=== PATIENT | female | born 1965 | race African-American/Black ===

== ENCOUNTER 2016-11-17 14:52 | Inpatient (IN) | payer BC ==
[2016-11-17] MEDS ORDERED: NORMAL SALINE 1000 ML 1,000 ML IV ONE (15:18)
[2016-11-17 15:38] LABS: ABSOLUTE LYMPHOCYTES (AUTO) 1.4 10^3/uL (0.5-4.7); ABSOLUTE NEUT (AUTO) 4.1 10^3/uL (1.7-8.2); BASOPHILS % (AUTO) 0.7 % (0-2); EOSINOPHILS % (AUTO) 0.2 % (0-6); HEMATOCRIT 43.2 % (36.0-47.0); HEMOGLOBIN 14.1 g/dL (12.0-15.5); HGB HCT DIFFERENCE -0.9; MEAN CORPUSCULAR HEMOGLOBIN 26.7 pg (27.0-33.4); MEAN CORPUSCULAR HGB CONC 32.7 g/dL (32.0-36.0); MEAN CORPUSCULAR VOLUME 82 fl (80-97); MONOCYTES % (AUTO) 14.7 % (3-13); RED BLOOD COUNT 5.29 10^6/uL (3.72-5.28); RED CELL DISTRIBUTION WIDTH 14.1 % (11.5-14.0); SEGMENTED NEUTROPHILS % (AUTO) 63.4 % (42-78); WHITE BLOOD COUNT 6.5 10^3/uL (4.0-10.5)
--- NOTE | 2016-11-17 15:39 | ER Document Report ---
ED General - General Stated Complaint: ALTERED MENTAL STATUS Mode of Arrival: Medic Information source: Emergency Med Personnel Cannot obtain history due to: Altered mental status Notes: This is a 51 year-old female brought to the ER by EMS for altered mental status. Patient unable to give history so history is obtained from EMS. Per the family patient's last known normal was last night. This morning her noticed that the kids were not in school and patient was noted to be still in bed. She has been responsive to verbal stimuli but not conversant. There is no known history of recent illness or trauma and no known history of any substance abuse. Past Medical History - General Information source: Emergency Med Personnel, [facility] Records Cannot obtain history due to: Altered mental status - Social History Smoking Status: Unknown if Ever Smoked Family History: Other - unknown - Past Medical History Cardiac Medical History: Reports: Hx Hypertension Review of Systems - Review of Systems -: Yes ROS unobtainable due to patient's medical condition Physical Exam - Vital signs Vitals: Pulse Ox 98 11/17/16 15:18 - Notes Notes: PHYSICAL EXAMINATION: GENERAL: adult female, opens eyes to voice, able to state her name and will follow some commands but does appear confused. Unable to state the date or where she is. No acute distress HEAD: Atraumatic, normocephalic. EYES: Pupils equal round and reactive to light, extraocular movements intact, sclera anicteric, conjunctiva are normal. ENT: nares patent, oropharynx clear without exudates. Moist mucous membranes. NECK: Normal range of motion, supple without lymphadenopathy LUNGS: Breath sounds clear to auscultation bilaterally and equal. No wheezes rales or rhonchi. HEART: Regular rate and rhythm without murmurs ABDOMEN: Soft, obese, nontender, normoactive bowel sounds. No guarding, no rebound. No masses appreciated. EXTREMITIES: Normal range of motion, no pitting or edema. NEUROLOGICAL: Alert to person only. Cranial nerves grossly intact. Follows commands only intermittently, but does move all 4 extremities spontaneously SKIN: Warm, Dry, normal turgor, no rashes or lesions noted. Course - Re-evaluation Re-evalutation: 11/17/16 16:54 Patient reevaluated. She opened her eyes to command and will occasionally say her name but still is confused and not able to follow commands. She is protecting her airway. CT reviewed and discussed with radiologist which shows acute to subacute nonhemorrhagic left hemispheric stroke. Again the last known normal was sometime last night and patient is well out of the window for any thrombolytic therapy. At this point I'm attempting to contact family. Patient will be admitted to the hospitalist Dr. Dunbar - Vital Signs Vital signs: Temp Pulse Resp BP Pulse Ox 75 18 112/79 95 11/17/16 16:10 11/17/16 16:10 11/17/16 16:10 11/17/16 16:10 - Laboratory Result Diagrams: 11/17/16 15:15 11/17/16 15:15 Laboratory results interpreted by me: 11/17/16 11/17/16 11/17/16 15:15 15:15 15:15 RBC 5.29 H MCH 26.7 L RDW 14.1 H Monocytes % 14.7 H PT 16.9 H Sodium 146.1 H Carbon Dioxide 31 H Creatine Kinase 261 H Urine Protein Urine Urobilinogen Salicylates < 1.0 L Acetaminophen < 10 L 11/17/16 16:08 RBC MCH RDW Monocytes % PT Sodium Carbon Dioxide Creatine Kinase Urine Protein 30 H Urine Urobilinogen 2.0 H Salicylates Acetaminophen - Diagnostic Test Radiology reviewed: Image reviewed, Reports reviewed - CT head: L frontal and temporal nonhemorrhagic acute to subacute CVA Discharge - Discharge Clinical Impression: Left sided cerebral hemisphere cerebrovascular accident (CVA) Condition: Fair Disposition: ADMITTED INPATIENT Admitting Provider: Hospitalist - Dr. Dunbar Unit Admitted: [facility]
[2016-11-17 15:47] LABS: PROTHROMBIN TIME 16.9 SEC (11.4-15.4)
[2016-11-17 15:48] LABS: PARTIAL THROMBOPLASTIN TIME 24.7 SEC (23.5-35.8)
[2016-11-17 16:01] LABS: ALBUMIN 4.2 g/dL (3.5-5.0); ANION GAP 12 (5-19); BILIRUBIN,DIRECT 0.2 mg/dL (0.0-0.4); BILIRUBIN,TOTAL 0.6 mg/dL (0.2-1.3); BLOOD UREA NITROGEN 17 mg/dL (7-20); CARBON DIOXIDE 31 mmol/L (22-30); CHLORIDE 103 mmol/L (98-107); CREATININE RESULT 0.81 mg/dL (0.52-1.25); GLUCOSE 99 mg/dL (75-110); NEONATAL BILIRUBIN RESULT 0.4 mg/dL (0.1-1.1); POTASSIUM 3.8 mmol/L (3.6-5.0); SODIUM 146.1 mmol/L (137-145); TOTAL PROTEIN 7.6 g/dL (6.3-8.2)
[2016-11-17 16:03] LABS: ALANINE AMINOTRANSFERASE 21 U/L (9-52); ALCOHOL < 10 mg/dL (NONE DETECTED); ALKALINE PHOSPHATASE 58 U/L (38-126); ASPARTATE AMINO TRANSFERASE 22 U/L (14-36); CALCIUM 10.2 mg/dL (8.4-10.2); CREATINE KINASE 261 U/L (30-135)
[2016-11-17 16:11] LABS: CREATINE KINASE MB 0.73 ng/mL (<4.55)
[2016-11-17 16:12] LABS: TROPONIN I < 0.012 ng/mL
[2016-11-17 16:25] LABS: APPEARANCE,URINE SLIGHTLY-CLOUDY; BILIRUBIN,URINE NEGATIVE (NEGATIVE); GLUCOSE, URINE NEGATIVE (NEGATIVE); KETONES,URINE NEGATIVE (NEGATIVE); LEUKOCYTE ESTERASE,URINE NEGATIVE (NEGATIVE); NITRITE,URINE NEGATIVE (NEGATIVE); PROTEIN,URINE 30 mg/dL (NEGATIVE)
[2016-11-17 16:38] LABS: URINE BARBITURATES SCREEN NEGATIVE; URINE METHADONE SCREEN NEGATIVE; URINE OPIATES LOW NEGATIVE; URINE PHENCYCLIDINE SCREEN NEGATIVE
[2016-11-17] MEDS ORDERED: ASPIRIN 300 MG SUPP, RECTAL PR ONE ×2 (16:43→21:00)
[2016-11-17] MEDS ORDERED: ACETAMINOPHEN 650 MG SUPP.RECT PR PRN (17:58)
[2016-11-17] MEDS ORDERED: LABETALOL HCL INJ 20 MG/4 ML DISP.SYRIN IV PRN (17:58)
--- NOTE | 2016-11-17 18:39 | PDOC H&P ---
History of Present Illness Admission Date/PCP: 11/17/16 17:42 Patient complains of: Confusion, altered mental status History of Present Illness: TANISHA MOTT is a 51 year old female w/ reported hypertension, found at home by family confused and aphasic. Last known well was last night. Family reports patient did not bring kids to school today. At home, she was found confused and non-verbal. Ambulance was called and patient brought to hospital, head CT showed stroke in L frontal/temporal area and was refered for admission. No other information available at this time. Unable to contact family. Information obtained from ER records and EMS record. Information unobtainable from the patient at this time. Past Medical History Past Medical History: Medication reconcillation PND verification from patients pharmacist. Cardiac Medical History: Reports: Hypertension Past Surgical History Past Surgical History: Reports: Other - unknown Social History Information Source: Transfer Record Smoking Status: Unknown if Ever Smoked Frequency of Alcohol Use: None - Unknown Hx Recreational Drug Use: No - Unknown at this time Family History Family History: Other - unknown Parental Family History Reviewed: No - unobtainable Children Family History Reviewed: Unknown - unobtainable Sibling(s) Family History Reviewed.: Unknown - unobtainable Medication/Allergy Home Medications: No Home Medications 11/17/16 Allergies/Adverse Reactions: shellfish derived Allergy (Verified 11/17/16 23:58) bee sting Allergy (Uncoded 11/17/16 23:58) Review of Systems ROS unobtainable: Due to mental status Physical Exam Vital Signs: Temp Pulse Resp BP Pulse Ox 75 26 H 148/122 H 98 11/17/16 16:10 11/17/16 17:02 11/17/16 17:02 11/17/16 17:02 General appearance: PRESENT: no acute distress, obese Head exam: PRESENT: atraumatic, normocephalic Eye exam: PRESENT: conjunctiva pink, EOMI, PERRLA - sluggish. ABSENT: scleral icterus Ear exam: PRESENT: normal external ear exam. ABSENT: drainage Mouth exam: PRESENT: moist, neck supple, tongue midline - on observation Throat exam: ABSENT: post pharyngeal erythema, tonsillar erythema Neck exam: ABSENT: carotid bruit, JVD, lymphadenopathy, thyromegaly Respiratory exam: PRESENT: clear to auscultation doe. ABSENT: rales, rhonchi, wheezes Cardiovascular exam: PRESENT: RRR. ABSENT: diastolic murmur, rubs, systolic murmur Pulses: PRESENT: normal dorsalis pedis pul Vascular exam: PRESENT: normal capillary refill GI/Abdominal exam: PRESENT: normal bowel sounds, soft. ABSENT: distended, guarding, mass, organolmegaly, rebound, tenderness Rectal exam: PRESENT: deferred Extremities exam: PRESENT: full ROM. ABSENT: calf tenderness, clubbing, pedal edema Neurological exam: PRESENT: alert, awake, other - 3/5 on RLE, 4/5 on LLE, 4-/5 on RUE, 4+/5 on LUE. ABSENT: oriented to person, oriented to place, oriented to time, oriented to situation Psychiatric exam: PRESENT: appropriate affect, normal mood. ABSENT: homicidal ideation, suicidal ideation Skin exam: PRESENT: dry, intact, warm. ABSENT: cyanosis, rash Results Impressions: Chest X-Ray 11/17/16 15:19 IMPRESSION: NO ACUTE RADIOGRAPHIC FINDING IN THE CHEST. Head CT 11/17/16 15:19 IMPRESSION: Motion artifact Acute or early subacute nonhemorrhagic infarct in the left frontal and left posterior temporal lobe, with low attenuation and mild local mass effect. Results called to Dr. Hnery, 1622 hours, 11/17/2016. Assessment & Plan - Diagnosis (1) Left sided cerebral hemisphere cerebrovascular accident (CVA) Is this a current diagnosis for this admission?: Yes (2) Hypertension Qualifiers: Hypertension type: essential hypertension Qualified Code(s): I10 - Essential (primary) hypertension Is this a current diagnosis for this admission?: Yes (3) Coagulopathy Is this a current diagnosis for this admission?: Yes - Time Time Spent: 50 to 70 Minutes - Inpatient Certification Based on my medical assessment, after consideration of the patient's comorbidities, presenting symptoms, or acuity I expect that the services needed warrant INPATIENT care.: Yes I certify that my determination is in accordance with my understanding of Medicare's requirements for reasonable and necessary INPATIENT services [42 CFR 412.3e].: Yes Medical Necessity: Significant Comorbidiites Make Outpatient Treatment Too Risky , Need Close Monitoring Due to Risk of Patient Decompensation, Need For Continuous Telemetry Monitoring, Need for Neurological Checks, Risk of Complication if Not Cared For in Hospital, Risk of Diagnosis Which Will Require Inpatient Eval/Care/Monitoring Post Hospital Care: D/C Seed Cutter Documentation - Plan Summary Plan Summary: Admit to IMCU. Aspirin RTL, speech/PT/occupational therapy evaluation. Obtain lipid panel, echo, carotid doppler and MRA of head and neck. Lovenox for DVT prophylaxis. Recheck PT/PTT. Check rheumatologic panel. Labetalol PRN for SBP > 180. Supplemental O2.
[2016-11-17] MEDS: FAMOTIDINE INJ/PF 20 MG/2 ML SDV IV SCH (21:11)
[2016-11-17] MEDS ORDERED: ENOXAPARIN SODIUM INJ 40 MG/0.4 ML DISP.SYRIN SUBCUT ONE (21:30)
[2016-11-18 02:03] LABS: ARTERIAL BLOOD BASE EXCESS 2.1 mmol/L
[2016-11-18 05:12] LABS: PROTHROMBIN TIME 16.5 SEC (11.4-15.4)
[2016-11-18 05:13] LABS: PARTIAL THROMBOPLASTIN TIME 27.7 SEC (23.5-35.8)
[2016-11-18 05:19] LABS: ANION GAP 13 (5-19); BLOOD UREA NITROGEN 12 mg/dL (7-20); CALCIUM 9.3 mg/dL (8.4-10.2); CARBON DIOXIDE 26 mmol/L (22-30); CHLORIDE 107 mmol/L (98-107); CHOLESTEROL 165.89 mg/dL (0-200); CREATININE RESULT 0.73 mg/dL (0.52-1.25); Direct HDL 47 mg/dL (>40); GLUCOSE 95 mg/dL (75-110); POTASSIUM 3.8 mmol/L (3.6-5.0); SODIUM 145.5 mmol/L (137-145); TRIGLYCERIDES 137 mg/dL (<150)
[2016-11-18 05:29] LABS: DIRECT LDL 84 mg/dL (<100)
[2016-11-18 07:07] LABS: ARTERIAL BLOOD BASE EXCESS 4.5 mmol/L; ARTERIAL BLOOD O2 SATURATION 96.3 % (94-98)
[2016-11-18] MEDS ORDERED: ASPIRIN 300 MG SUPP, RECTAL PR SCH (10:00)
--- NOTE | 2016-11-18 10:06 | PDOC PROGRESS REPORT ---
Subjective Progress Note for:: 11/18/16 Subjective:: Patient's mental status improved this morning. Patient is now more focused questions compared to yesterday. Patient's strength on the right upper extremity improved as well and likewise the right lower extremity. No reported temperature spikes, nausea or vomiting, worsening confusion, unresponsiveness. Patient goes to sleep but easily arousable. Physical Exam Vital Signs: Temp Pulse Resp BP Pulse Ox 98.9 F 66 18 103/77 100 11/18/16 07:42 11/18/16 07:42 11/18/16 07:42 11/18/16 07:42 11/18/16 07:42 Intake & Output 11/17/16 11/18/16 11/19/16 06:59 06:59 06:59 Intake Total 10 Output Total 0 Balance 10 Weight 105.2 kg General appearance: PRESENT: no acute distress, morbidly obese Head exam: PRESENT: normocephalic Eye exam: PRESENT: EOMI - Seems to be intact Mouth exam: PRESENT: moist, neck supple Neck exam: ABSENT: JVD Respiratory exam: PRESENT: clear to auscultation doe. ABSENT: rhonchi, wheezes Cardiovascular exam: PRESENT: RRR. ABSENT: gallop GI/Abdominal exam: PRESENT: normal bowel sounds, soft. ABSENT: tenderness Extremities exam: PRESENT: other - Trace pretibial edema Neurological exam: PRESENT: alert, awake, other - Response to questions appropriately, right upper extremity 4 to 4+/5, RLE shows movement of the foot and able to lift it to some degree. Psychiatric exam: ABSENT: anxious Focused psych exam: ABSENT: restlessness Skin exam: PRESENT: dry, warm. ABSENT: cyanosis Results Laboratory Results: 11/18/16 03:55 11/18/16 11/18/16 11/18/16 01:20 03:55 06:50 Carbonic Acid 1.37 H 1.34 HCO3/H2CO3 Ratio 20:1 21:1 ABG pH 7.40 7.44 ABG pCO2 45.5 H 44.4 ABG pO2 66.4 L 81.7 ABG HCO3 27.4 H 29.3 H ABG O2 Saturation 93.0 L 96.3 ABG Base Excess 2.1 4.5 FiO2 ROOM AIR ROOM AIR Sodium 145.5 H Potassium 3.8 Chloride 107 Carbon Dioxide 26 Anion Gap 13 BUN 12 Creatinine 0.73 Est GFR ( Amer) > 60 Est GFR (Non-Af Amer) > 60 Glucose 95 Calcium 9.3 Triglycerides 137 Cholesterol 165.89 LDL Cholesterol Direct 84 VLDL Cholesterol 27.0 HDL Cholesterol 47 Impressions: Chest X-Ray 11/17/16 15:19 IMPRESSION: NO ACUTE RADIOGRAPHIC FINDING IN THE CHEST. Head CTA 11/17/16 16:42 IMPRESSION: OCCLUDED LEFT INTERNAL CAROTID ARTERY WITH THE LEFT MCA BEING SUPPLIED VIA THE ANTERIOR COMMUNICATING ARTERY. EVOLVING INFARCTION LEFT FRONTAL LOBE AND LEFT TEMPORAL LOBE. Neck CTA 11/17/16 16:42 IMPRESSION: There is occlusion of the left internal carotid artery at its origin. No other arterial occlusions or significant stenoses are identified. Head CT 11/18/16 00:00 IMPRESSION: Stable nonhemorrhagic left-sided infarct without mass effect. Assessment & Plan - Diagnosis (1) Left sided cerebral hemisphere cerebrovascular accident (CVA) Is this a current diagnosis for this admission?: Yes (2) Carotid artery occlusion Qualifiers: Laterality: left Qualified Code(s): I65.22 - Occlusion and stenosis of left carotid artery Is this a current diagnosis for this admission?: Yes (3) Hypertension Qualifiers: Hypertension type: essential hypertension Qualified Code(s): I10 - Essential (primary) hypertension Is this a current diagnosis for this admission?: Yes (4) Coagulopathy Is this a current diagnosis for this admission?: Yes - Time Time Spent with patient: 25-34 minutes - Plan Summary Plan Summary: Swallowing evaluation with speech. Continue antiplatelet therapy. Awaiting echocardiogram. Carotid Doppler has been discontinued as the CT scan finding shows carotid occlusion on the left. Continue supportive care. Continue to monitor blood pressure. Patient has been discussed by on-call physician to neurology service at [facility]. Reportedly, repeat head CT scan every 6 hours and if patient continues to get worse or mental status deteriorates, may be a candidate for hemicraniectomy. Awaiting rheumatologic studies.
[2016-11-18] MEDS: ENOXAPARIN SODIUM INJ 40 MG/0.4 ML DISP.SYRIN SUBCUT SCH (11:26)
[2016-11-18] MEDS: FAMOTIDINE INJ/PF 20 MG/2 ML SDV IV SCH ×2 (11:27→21:27)
--- NOTE | 2016-11-18 11:42 | Progress Note ---
Provider Note Provider Note: 11/17/2016: CT angiogram reports reviewed. 10:07 PM, I went to patient's bedside, with patient's floor nurse present. She was somewhat somnolent, but did awaken reasonably easily. Remained fairly somnolent however. Did follow basic commands without undue difficulty. Almost completely aphasic. Maintaining her airway well. Right librarian assistant and triceps basically nonfunctional. Biceps 4 over 5 strength, with plantar flexion on the right side 3 over 5 and no dorsiflexion. Left-sided motor function within normal limits. At 10:21 PM, I discussed the patient by phone with Dr. Matthews, trial consultant neurologist. Told him I would also like to discuss the patient with the neurologist at [facility]. He stated that would be fine. At 10:22 PM, I requested telephone conversation with the on-call neurologist at [facility], [place], operated by [facility]. At 11:27 PM, I discussed the patient at length by phone with Dr. Alvarez, trial consultant adult neurologist at [facility]. She did not feel the transfer was warranted at that time. She recommended every [address] scans, and sooner should neurologic status worsen. She stated that if patient began showing evidence of neurologic deterioration and/ or increased swelling on CT scan, to contact neurosurgery at [facility] for possible urgent transfer for possible hemicraniectomy. MRI study not available at that time of night. Shortly after midnight, I was contacted by her floor nurse stating that her MENDS exam had progressed from [address] scan of the brain without contrast was obtained, showing no change, and without evidence of mass effect. ICU nurse Sherry went to the patient's bedside and reevaluated the patient, with her actual MENDS score unchanged from the emergency room, and with patient following basic commands. She stated floor nurse agreed that patient actually was quite stable. Patient discussed in detail with daytime hospitalist team.
--- NOTE | 2016-11-18 13:57 | XCELERA REPORT ---
[address] [address] Transthoracic Echocardiogram Report Name: TANISHA MOTT Age: 51 yrs Gender: Female : 1965 Patient Status: Inpatient Patient Location: [id number] Study Date: 11/18/2016 09:47 AM Height: 69 in Weight: 231 lb BSA: 2.2 m2 Procedure: A complete two-dimensional transthoracic echocardiogram was performed (2D, M-mode, spectral and color flow Doppler). The study was technically adequate with some images being suboptimal in quality. Reason For Study: stroke, hypertension Ordering Physician: GEOVANY ALBERT Performed By: Jaelyn Vigil Interpretation Summary The left ventricular ejection fraction is normal. There is mild concentric left ventricular hypertrophy. The left ventricle is grossly normal size. Doppler measurements suggest pseudonormalized left ventricular relaxation, which is associated with grade II/IV or mild to moderate diastolic dysfunction Wall motion cannot be accurately commented on, but no definite regional wall motion abnormalities noted. The right ventricular systolic function is normal. The right atrium is normal in size The left atrial size is normal. There is a trace amount of mitral regurgitation There is no mitral valve stenosis. No aortic regurgitation is present. There is no aortic valve stenosis There is a trace or physiologic amount of tricuspid regurgitation Tricuspid regurgitation jet envelope not well defined to measure RV systolic pressure accurately. The aortic root is not well visualized. The inferior vena cava was not well visualized There is no pericardial effusion. MMode/2D Measurements \T\ Calculations RVDd: 3.3 cm LVIDd: 4.4 cm FS: 40.1 % Ao root diam: 3.4 cm IVSd: 1.1 cm LVIDs: 2.7 cm EDV(Teich): 89.8 ml LVPWd: 1.1 cm ESV(Teich): 26.1 ml Ao root area: 9.1 cm2 EF(Teich): 70.9 % LA dimension: 3.2 cm LVOT diam: 2.2 cm LVOT area: 3.9 cm2 Doppler Measurements \T\ Calculations MV E max belle: MV P1/2t max belle: Ao V2 max: LV V1 max P.8 cm/sec 88.8 cm/sec 132.5 cm/sec 4.5 mmHg MV A max belle: MV P1/2t: 49.7 msec Ao max PG: LV V1 max: 60.3 cm/sec MVA(P1/2t): 4.4 cm2 7.0 mmHg 106.5 cm/sec MV E/A: 1.5 MV dec slope: NAYLA(V,D): 3.1 cm2 523.3 cm/sec2 PA V2 max: 68.9 cm/sec PA max P.9 mmHg Left Ventricle The left ventricle is grossly normal size. There is mild concentric left ventricular hypertrophy. The left ventricular ejection fraction is normal. Doppler measurements suggest pseudonormalized left ventricular relaxation, which is associated with grade II/IV or mild to moderate diastolic dysfunction. Wall motion cannot be accurately commented on, but no definite regional wall motion abnormalities noted. Right Ventricle The right ventricle is grossly normal size. There is normal right ventricular wall thickness. The right ventricular systolic function is normal. Atria The right atrium is normal in size. The left atrial size is normal. Interarterial septum not well visualized and not well dopplered. Cannot comment on ASD/PFO presence. Mitral Valve The mitral valve leaflets are sclerotic, but show no functional abnormalities. There is no mitral valve stenosis. There is a trace amount of mitral regurgitation. Aortic Valve The aortic valve is grossly normal. There is no aortic valve stenosis. No aortic regurgitation is present. Tricuspid Valve The tricuspid valve is not well visualized, but is grossly normal. There is no tricuspid stenosis. There is a trace or physiologic amount of tricuspid regurgitation. Tricuspid regurgitation jet envelope not well defined to measure RV systolic pressure accurately. Pulmonic Valve The pulmonic valve is not well visualized. Great Vessels The aortic root is not well visualized. The inferior vena cava was not well visualized. Effusions There is no pericardial effusion. Incidental Findings No definite cardiac source of CVA/TIA noted on this particular trans- thoracic study. : GEOVANY ALBERT > Cindy Uribe
--- NOTE | 2016-11-18 22:04 | EKG REPORT ---
SEVERITY:- BORDERLINE ECG - SINUS RHYTHM PROBABLE LEFT ATRIAL ABNORMALITY : Confirmed by: Soo Abdalla MD 18-Nov-2016 22:04:30
[2016-11-19] MEDS: ENOXAPARIN SODIUM INJ 40 MG/0.4 ML DISP.SYRIN SUBCUT SCH (09:38)
[2016-11-19] MEDS: ASPIRIN 325 MG TABLET PO SCH (09:39)
[2016-11-19] MEDS: FAMOTIDINE INJ/PF 20 MG/2 ML SDV IV SCH ×2 (09:39→21:46)
--- NOTE | 2016-11-19 11:28 | PDOC PROGRESS REPORT ---
Subjective Progress Note for:: 11/19/16 Subjective:: Patient's mental status reportedly stable. Patient remains more focused on questions compared to admission. Patient's strength on the right upper extremity and lower extremity improved as well patient able to ambulate. Still w/ expressive aphasia. No reported temperature spikes, nausea or vomiting, worsening confusion, unresponsiveness. Patient goes to sleep but easily arousable. Able to tolerate oral intake well. Blood pressure has been normal. Lipid panel has been unremarkable. Physical Exam Vital Signs: Temp Pulse Resp BP Pulse Ox 99.1 F 58 L 14 104/64 95 11/19/16 07:41 11/19/16 10:00 11/19/16 10:00 11/19/16 10:00 11/19/16 10:00 Intake & Output 11/18/16 11/19/16 11/20/16 06:59 06:59 06:59 Intake Total 10 828 Output Total 0 400 Balance 10 428 Weight 105.2 kg 105.4 kg General appearance: PRESENT: no acute distress, cooperative Head exam: PRESENT: normocephalic Eye exam: PRESENT: EOMI Mouth exam: PRESENT: moist, neck supple Neck exam: ABSENT: JVD Respiratory exam: PRESENT: clear to auscultation doe. ABSENT: rhonchi, wheezes Cardiovascular exam: PRESENT: gallop, RRR GI/Abdominal exam: PRESENT: soft. ABSENT: distended, tenderness Neurological exam: PRESENT: alert, awake Skin exam: PRESENT: dry, warm. ABSENT: cyanosis Results Laboratory Results: 11/18/16 03:55 Impressions: Chest X-Ray 11/17/16 15:19 IMPRESSION: NO ACUTE RADIOGRAPHIC FINDING IN THE CHEST. Head CTA 11/17/16 16:42 IMPRESSION: OCCLUDED LEFT INTERNAL CAROTID ARTERY WITH THE LEFT MCA BEING SUPPLIED VIA THE ANTERIOR COMMUNICATING ARTERY. EVOLVING INFARCTION LEFT FRONTAL LOBE AND LEFT TEMPORAL LOBE. Neck CTA 11/17/16 16:42 IMPRESSION: There is occlusion of the left internal carotid artery at its origin. No other arterial occlusions or significant stenoses are identified. Brain MRI with MRA 11/17/16 18:05 IMPRESSION: Early subacute nonhemorrhagic left hemisphere infarcts, correlate with prior CT exams Occluded left internal carotid artery at the skullbase, with flow identified in the carotid terminus through a patent left posterior communicating artery. 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 Dunbar Head MRI 11/18/16 00:00 IMPRESSION: Early subacute nonhemorrhagic left hemisphere infarcts, correlate with prior CT exams Occluded left internal carotid artery at the skullbase, with flow identified in the carotid terminus through a patent left posterior communicating artery. 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 Dunbar Head CT 11/18/16 13:00 IMPRESSION: Stable nonhemorrhagic left-sided frontal and temporoparietal infarcts Assessment & Plan - Diagnosis (1) Left sided cerebral hemisphere cerebrovascular accident (CVA) Is this a current diagnosis for this admission?: Yes (2) Carotid artery occlusion Qualifiers: Laterality: left Qualified Code(s): I65.22 - Occlusion and stenosis of left carotid artery Is this a current diagnosis for this admission?: Yes (3) Hypertension Qualifiers: Hypertension type: essential hypertension Qualified Code(s): I10 - Essential (primary) hypertension Is this a current diagnosis for this admission?: Yes (4) Coagulopathy Is this a current diagnosis for this admission?: Yes (5) Cerebral aneurysm Is this a current diagnosis for this admission?: Yes - Time Time Spent with patient: 25-34 minutes - Plan Summary Plan Summary: Continue physical therapy and speech therapy. Consult raw material planner for subacute rehabilitation. Cerebral aneurysm reportedly intracranial on the internal carotid. We will continue to monitor. Continue antiplatelet therapy. Hold any antihypertensive medication for now. Awaiting rheumatologic panel.
[2016-11-19 13:39] LABS: JO-1 ANTIBODY <0.2 AI (0.0-0.9)
[2016-11-19 15:39] LABS: DILUTE RUSSELL VIPOR VENOM 36.2 sec (0.0-44.0); THROMBIN TIME 17.2 sec (0.0-20.9)
[2016-11-19] MEDS ORDERED: ACETAMINOPHEN 325 MG TABLET PO PRN (17:55)
[2016-11-20 07:43] LABS: LUPUS PANEL INTERPRETATION Comment: (.); PTT-LA 30.3 sec (0.0-43.6)
[2016-11-20] MEDS: ENOXAPARIN SODIUM INJ 40 MG/0.4 ML DISP.SYRIN SUBCUT SCH (09:39)
[2016-11-20] MEDS: ASPIRIN 325 MG TABLET PO SCH (09:39)
[2016-11-20] MEDS: FAMOTIDINE INJ/PF 20 MG/2 ML SDV IV SCH ×2 (09:40→21:17)
--- NOTE | 2016-11-20 11:03 | PDOC PROGRESS REPORT ---
Subjective Progress Note for:: 11/20/16 Subjective:: Patient's mental status reportedly stable. Patient remains more focused on questions compared during admission. Patient able to ambulate w/ walker w/ assistance. Still w/ expressive aphasia. Cognition improved per PT. No reported temperature spikes, but had low grade fever yesterday, no nausea or vomiting, worsening confusion, unresponsiveness. Able to tolerate oral intake well. Blood pressure has been normal. Lipid panel has been unremarkable. Physical Exam Vital Signs: Temp Pulse Resp BP Pulse Ox 98.8 F 54 L 12 113/63 100 11/20/16 07:29 11/20/16 10:00 11/20/16 10:00 11/20/16 10:00 11/20/16 10:00 Intake & Output 11/19/16 11/20/16 11/21/16 06:59 06:59 06:59 Intake Total 828 1520 Output Total 400 300 Balance 428 1220 Weight 105.4 kg 104.9 kg General appearance: PRESENT: no acute distress, cooperative Head exam: PRESENT: normocephalic Eye exam: PRESENT: EOMI Mouth exam: PRESENT: moist, neck supple Neck exam: ABSENT: JVD Respiratory exam: PRESENT: clear to auscultation doe Cardiovascular exam: PRESENT: RRR. ABSENT: gallop GI/Abdominal exam: PRESENT: hypoactive bowel sounds, normal bowel sounds, soft. ABSENT: tenderness Extremities exam: ABSENT: pedal edema Neurological exam: PRESENT: alert, awake Skin exam: PRESENT: dry, warm. ABSENT: cyanosis Results Laboratory Results: 11/18/16 03:55 Impressions: Chest X-Ray 11/17/16 15:19 IMPRESSION: NO ACUTE RADIOGRAPHIC FINDING IN THE CHEST. Head CTA 11/17/16 16:42 IMPRESSION: OCCLUDED LEFT INTERNAL CAROTID ARTERY WITH THE LEFT MCA BEING SUPPLIED VIA THE ANTERIOR COMMUNICATING ARTERY. EVOLVING INFARCTION LEFT FRONTAL LOBE AND LEFT TEMPORAL LOBE. Neck CTA 11/17/16 16:42 IMPRESSION: There is occlusion of the left internal carotid artery at its origin. No other arterial occlusions or significant stenoses are identified. Brain MRI with MRA 11/17/16 18:05 IMPRESSION: Early subacute nonhemorrhagic left hemisphere infarcts, correlate with prior CT exams Occluded left internal carotid artery at the skullbase, with flow identified in the carotid terminus through a patent left posterior communicating artery. 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 Dunbar Head MRI 11/18/16 00:00 IMPRESSION: Early subacute nonhemorrhagic left hemisphere infarcts, correlate with prior CT exams Occluded left internal carotid artery at the skullbase, with flow identified in the carotid terminus through a patent left posterior communicating artery. 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 Dunbar Head CT 11/18/16 13:00 IMPRESSION: Stable nonhemorrhagic left-sided frontal and temporoparietal infarcts Assessment & Plan - Diagnosis (1) Left sided cerebral hemisphere cerebrovascular accident (CVA) Is this a current diagnosis for this admission?: Yes (2) Carotid artery occlusion Qualifiers: Laterality: left Qualified Code(s): I65.22 - Occlusion and stenosis of left carotid artery Is this a current diagnosis for this admission?: Yes (3) Hypertension Qualifiers: Hypertension type: essential hypertension Qualified Code(s): I10 - Essential (primary) hypertension Is this a current diagnosis for this admission?: Yes (4) Coagulopathy Is this a current diagnosis for this admission?: Yes (5) Cerebral aneurysm Is this a current diagnosis for this admission?: Yes - Time Time Spent with patient: 15-24 minutes - Plan Summary Plan Summary: Continue PT. Add lipitor. Cont. ASA, family reports patient not on anti- platelet therapy at home. Consult [facility] for acute rehab. Per PT, patient is a good candidate for acute rehab.
[2016-11-20] MEDS: ATORVASTATIN CALCIUM 10 MG TABLET PO SCH (21:18)
[2016-11-21] MEDS: ENOXAPARIN SODIUM INJ 40 MG/0.4 ML DISP.SYRIN SUBCUT SCH (10:15)
[2016-11-21] MEDS: ASPIRIN 325 MG TABLET PO SCH (10:16)
[2016-11-21] MEDS: FAMOTIDINE INJ/PF 20 MG/2 ML SDV IV SCH ×2 (10:16→21:30)
--- NOTE | 2016-11-21 10:48 | PDOC PROGRESS REPORT ---
Subjective Progress Note for:: 11/21/16 Subjective:: No reported temperature spikes, respiratory distress, chills or fever. No worsening of the deficits noted. No alteration in mental status reported. Physical Exam Vital Signs: Temp Pulse Resp BP Pulse Ox 98.7 F 54 L 16 121/78 100 11/21/16 07:32 11/21/16 07:32 11/21/16 07:32 11/21/16 07:32 11/21/16 07:32 Intake & Output 11/20/16 11/21/16 11/22/16 06:59 06:59 06:59 Intake Total 1520 807 Output Total 300 600 Balance 1220 207 Weight 104.9 kg 105.9 kg General appearance: PRESENT: no acute distress, cooperative Head exam: PRESENT: normocephalic Eye exam: PRESENT: EOMI Mouth exam: PRESENT: neck supple Neck exam: ABSENT: JVD Respiratory exam: PRESENT: clear to auscultation doe Cardiovascular exam: PRESENT: RRR. ABSENT: gallop GI/Abdominal exam: PRESENT: normal bowel sounds, soft. ABSENT: distended Extremities exam: PRESENT: other - Trace pretibial edema Neurological exam: PRESENT: alert, awake Skin exam: PRESENT: dry, warm. ABSENT: cyanosis Results Laboratory Results: 11/18/16 03:55 Impressions: Chest X-Ray 11/17/16 15:19 IMPRESSION: NO ACUTE RADIOGRAPHIC FINDING IN THE CHEST. Head CTA 11/17/16 16:42 IMPRESSION: OCCLUDED LEFT INTERNAL CAROTID ARTERY WITH THE LEFT MCA BEING SUPPLIED VIA THE ANTERIOR COMMUNICATING ARTERY. EVOLVING INFARCTION LEFT FRONTAL LOBE AND LEFT TEMPORAL LOBE. Neck CTA 11/17/16 16:42 IMPRESSION: There is occlusion of the left internal carotid artery at its origin. No other arterial occlusions or significant stenoses are identified. Brain MRI with MRA 11/17/16 18:05 IMPRESSION: Early subacute nonhemorrhagic left hemisphere infarcts, correlate with prior CT exams Occluded left internal carotid artery at the skullbase, with flow identified in the carotid terminus through a patent left posterior communicating artery. 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 Dunbar Head MRI 11/18/16 00:00 IMPRESSION: Early subacute nonhemorrhagic left hemisphere infarcts, correlate with prior CT exams Occluded left internal carotid artery at the skullbase, with flow identified in the carotid terminus through a patent left posterior communicating artery. 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 Dunbar Head CT 11/18/16 13:00 IMPRESSION: Stable nonhemorrhagic left-sided frontal and temporoparietal infarcts Assessment & Plan - Diagnosis (1) Left sided cerebral hemisphere cerebrovascular accident (CVA) Is this a current diagnosis for this admission?: Yes (2) Carotid artery occlusion Qualifiers: Laterality: left Qualified Code(s): I65.22 - Occlusion and stenosis of left carotid artery Is this a current diagnosis for this admission?: Yes (3) Hypertension Qualifiers: Hypertension type: essential hypertension Qualified Code(s): I10 - Essential (primary) hypertension Is this a current diagnosis for this admission?: Yes (4) Coagulopathy Is this a current diagnosis for this admission?: Yes (5) Cerebral aneurysm Is this a current diagnosis for this admission?: Yes - Time Time Spent with patient: Less than 15 minutes - Plan Summary Plan Summary: Patient improved overall. No new deficits reported. Blood pressure has remained normal. Continue current medication and supportive care. Awaiting rehabilitation bed.
[2016-11-21] MEDS: ATORVASTATIN CALCIUM 10 MG TABLET PO SCH (21:30)
[2016-11-22] MEDS: ENOXAPARIN SODIUM INJ 40 MG/0.4 ML DISP.SYRIN SUBCUT SCH (09:08)
[2016-11-22] MEDS: ASPIRIN 325 MG TABLET PO SCH (09:09)
[2016-11-22] MEDS: FAMOTIDINE INJ/PF 20 MG/2 ML SDV IV SCH ×2 (09:09→22:08)
--- NOTE | 2016-11-22 09:54 | PDOC PROGRESS REPORT ---
Subjective Progress Note for:: 11/22/16 Subjective:: Patient is stable. She denies any new weakness, no reported choking sensation or aspiration, able to ambulate with assistance. Still having expressive aphasia but at times she is able to say what she meant. Physical Exam Vital Signs: Temp Pulse Resp BP Pulse Ox 99.1 F 58 L 16 107/68 99 11/22/16 07:56 11/22/16 07:56 11/22/16 07:56 11/22/16 07:56 11/22/16 07:56 Intake & Output 11/21/16 11/22/16 11/23/16 06:59 06:59 06:59 Intake Total 807 1265 Output Total 600 Balance 207 1265 Weight 105.9 kg 98.5 kg General appearance: PRESENT: no acute distress, morbidly obese Head exam: PRESENT: normocephalic Eye exam: PRESENT: EOMI Mouth exam: PRESENT: moist, neck supple Neck exam: ABSENT: JVD Respiratory exam: PRESENT: clear to auscultation doe Cardiovascular exam: PRESENT: RRR. ABSENT: gallop GI/Abdominal exam: PRESENT: soft. ABSENT: distended, tenderness Extremities exam: ABSENT: pedal edema Neurological exam: PRESENT: alert, awake Skin exam: PRESENT: dry, warm. ABSENT: cyanosis Results Laboratory Results: 11/18/16 03:55 Impressions: Chest X-Ray 11/17/16 15:19 IMPRESSION: NO ACUTE RADIOGRAPHIC FINDING IN THE CHEST. Head CTA 11/17/16 16:42 IMPRESSION: OCCLUDED LEFT INTERNAL CAROTID ARTERY WITH THE LEFT MCA BEING SUPPLIED VIA THE ANTERIOR COMMUNICATING ARTERY. EVOLVING INFARCTION LEFT FRONTAL LOBE AND LEFT TEMPORAL LOBE. Neck CTA 11/17/16 16:42 IMPRESSION: There is occlusion of the left internal carotid artery at its origin. No other arterial occlusions or significant stenoses are identified. Brain MRI with MRA 11/17/16 18:05 IMPRESSION: Early subacute nonhemorrhagic left hemisphere infarcts, correlate with prior CT exams Occluded left internal carotid artery at the skullbase, with flow identified in the carotid terminus through a patent left posterior communicating artery. 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 Dunbar Head MRI 11/18/16 00:00 IMPRESSION: Early subacute nonhemorrhagic left hemisphere infarcts, correlate with prior CT exams Occluded left internal carotid artery at the skullbase, with flow identified in the carotid terminus through a patent left posterior communicating artery. 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 Dunbar Head CT 11/18/16 13:00 IMPRESSION: Stable nonhemorrhagic left-sided frontal and temporoparietal infarcts Assessment & Plan - Diagnosis (1) Left sided cerebral hemisphere cerebrovascular accident (CVA) Is this a current diagnosis for this admission?: Yes (2) Carotid artery occlusion Qualifiers: Laterality: left Qualified Code(s): I65.22 - Occlusion and stenosis of left carotid artery Is this a current diagnosis for this admission?: Yes (3) Hypertension Qualifiers: Hypertension type: essential hypertension Qualified Code(s): I10 - Essential (primary) hypertension Is this a current diagnosis for this admission?: Yes (4) Coagulopathy Is this a current diagnosis for this admission?: Yes (5) Cerebral aneurysm Is this a current diagnosis for this admission?: Yes - Time Time Spent with patient: Less than 15 minutes - Plan Summary Plan Summary: Patient's blood pressure remains normal. Continue current medications and supportive care. Continue physical therapy. Awaiting acute rehabilitation bed.
[2016-11-22] MEDS: ATORVASTATIN CALCIUM 10 MG TABLET PO SCH (22:08)
[2016-11-23] MEDS: ENOXAPARIN SODIUM INJ 40 MG/0.4 ML DISP.SYRIN SUBCUT SCH (09:21)
[2016-11-23] MEDS: ASPIRIN 325 MG TABLET PO SCH (09:24)
[2016-11-23] MEDS: FAMOTIDINE INJ/PF 20 MG/2 ML SDV IV SCH ×2 (09:25→22:10)
--- NOTE | 2016-11-23 11:27 | PDOC PROGRESS REPORT ---
Subjective Progress Note for:: 11/23/16 Subjective:: Patient is stable. She denies any new weakness. Still having expressive aphasia but at times she is able to say what she meant. Ambulates with assistance and a rolling walker. Physical Exam Vital Signs: Temp Pulse Resp BP Pulse Ox 98.0 F 57 L 12 102/69 97 11/23/16 10:46 11/23/16 10:46 11/23/16 10:46 11/23/16 10:46 11/23/16 10:46 Intake & Output 11/22/16 11/23/16 11/24/16 06:59 06:59 06:59 Intake Total 1265 1212 Balance 1265 1212 Weight 98.5 kg 105.6 kg General appearance: PRESENT: no acute distress, cooperative, obese Head exam: PRESENT: normocephalic Eye exam: PRESENT: EOMI Mouth exam: PRESENT: moist, neck supple Neck exam: ABSENT: JVD Respiratory exam: PRESENT: clear to auscultation doe Cardiovascular exam: PRESENT: RRR. ABSENT: gallop GI/Abdominal exam: PRESENT: normal bowel sounds, soft Extremities exam: ABSENT: pedal edema Neurological exam: PRESENT: alert, awake Skin exam: PRESENT: dry, warm. ABSENT: cyanosis Results Laboratory Results: 11/18/16 03:55 Impressions: Chest X-Ray 11/17/16 15:19 IMPRESSION: NO ACUTE RADIOGRAPHIC FINDING IN THE CHEST. Head CTA 11/17/16 16:42 IMPRESSION: OCCLUDED LEFT INTERNAL CAROTID ARTERY WITH THE LEFT MCA BEING SUPPLIED VIA THE ANTERIOR COMMUNICATING ARTERY. EVOLVING INFARCTION LEFT FRONTAL LOBE AND LEFT TEMPORAL LOBE. Neck CTA 11/17/16 16:42 IMPRESSION: There is occlusion of the left internal carotid artery at its origin. No other arterial occlusions or significant stenoses are identified. Brain MRI with MRA 11/17/16 18:05 IMPRESSION: Early subacute nonhemorrhagic left hemisphere infarcts, correlate with prior CT exams Occluded left internal carotid artery at the skullbase, with flow identified in the carotid terminus through a patent left posterior communicating artery. 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 Dunbar Head MRI 11/18/16 00:00 IMPRESSION: Early subacute nonhemorrhagic left hemisphere infarcts, correlate with prior CT exams Occluded left internal carotid artery at the skullbase, with flow identified in the carotid terminus through a patent left posterior communicating artery. 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 Dunbar Head CT 11/18/16 13:00 IMPRESSION: Stable nonhemorrhagic left-sided frontal and temporoparietal infarcts Assessment & Plan - Diagnosis (1) Left sided cerebral hemisphere cerebrovascular accident (CVA) Is this a current diagnosis for this admission?: Yes (2) Carotid artery occlusion Qualifiers: Laterality: left Qualified Code(s): I65.22 - Occlusion and stenosis of left carotid artery Is this a current diagnosis for this admission?: Yes (3) Cerebral aneurysm Is this a current diagnosis for this admission?: Yes (4) Hypertension Qualifiers: Hypertension type: essential hypertension Qualified Code(s): I10 - Essential (primary) hypertension Is this a current diagnosis for this admission?: Yes (5) Coagulopathy Is this a current diagnosis for this admission?: Yes - Time Time Spent with patient: Less than 15 minutes - Plan Summary Plan Summary: Continue him medication and supportive care. Continue physical therapy. The patient will need neurosurgical evaluation and follow-up on discharge for her small cerebral aneurysm noted on MRI. Awaiting bed in acute rehabilitation facility.
[2016-11-23] MEDS: ATORVASTATIN CALCIUM 10 MG TABLET PO SCH (22:10)
[2016-11-24] MEDS ORDERED: NICOTINE 7 MG/24 HR PATCH.TD24 TD PRN (09:35)
[2016-11-24] MEDS ORDERED: ALBUTEROL SULFATE HFA (90 MCG/PUFF) 200 PUFF/8.5 GM MDI IH PRN (09:35)
[2016-11-24] MEDS: FAMOTIDINE 20 MG TABLET PO SCH ×2 (10:52→23:00)
[2016-11-24] MEDS: ENOXAPARIN SODIUM INJ 40 MG/0.4 ML DISP.SYRIN SUBCUT SCH (10:52)
[2016-11-24] MEDS: ASPIRIN 325 MG TABLET PO SCH (10:52)
[2016-11-24] MEDS ORDERED: TIOTROPIUM BROMIDE DPI 5 CAP/KIT (18 MCG/CAP) IH ONE (11:00)
--- NOTE | 2016-11-24 16:57 | PDOC PROGRESS REPORT ---
Subjective Progress Note for:: 11/24/16 Subjective:: Patient seen earlier today on morning rounds. Patient complains of dry cough. Patient reports he is slightly short of breath with ambulation. She denies any PND, orthopnea, or peripheral edema. She reports that she normally did smoke approximately one pack per day. Patient denies chest pain, abdominal pain, nausea, vomiting, fevers, chills, diarrhea, constipation, headache, new onset weakness. Physical Exam Vital Signs: Temp Pulse Resp BP Pulse Ox 98.0 F 59 L 16 103/74 100 11/24/16 11:40 11/24/16 14:00 11/24/16 11:40 11/24/16 11:40 11/24/16 11:40 Intake & Output 11/23/16 11/24/16 11/25/16 06:59 06:59 06:59 Intake Total 1212 575 220 Balance 1212 575 220 Weight 105.6 kg 96.9 kg Exam: General: Awake alert and oriented x3, no acute respiratory distress HEENT: AT/NC, PERRL, EOMI, oropharynx is moist, pink, no scleral icterus, no conjunctival injection, hirsutism Neck: No JVD, trachea midline; acanthosis nigricans Chest: Bilateral basilar rales CV: Regular rate and rhythm, normal S1 and S2, no murmur, rub, or gallop Abdomen: Soft, nontender to palpation, nondistended, active bowel sounds; no rebound, rigidity, or guarding Extremities: No cyanosis, clubbing or edema Neuro: Expressive and receptive aphasia, right upper extremity 4-/5, right lower extremity 4+/5 Psych: Normal mood and affect Results Laboratory Results: 11/18/16 03:55 11/24/16 10:14 TSH 1.46 Impressions: Head CTA 11/17/16 16:42 IMPRESSION: OCCLUDED LEFT INTERNAL CAROTID ARTERY WITH THE LEFT MCA BEING SUPPLIED VIA THE ANTERIOR COMMUNICATING ARTERY. EVOLVING INFARCTION LEFT FRONTAL LOBE AND LEFT TEMPORAL LOBE. Neck CTA 11/17/16 16:42 IMPRESSION: There is occlusion of the left internal carotid artery at its origin. No other arterial occlusions or significant stenoses are identified. Brain MRI with MRA 11/17/16 18:05 IMPRESSION: Early subacute nonhemorrhagic left hemisphere infarcts, correlate with prior CT exams Occluded left internal carotid artery at the skullbase, with flow identified in the carotid terminus through a patent left posterior communicating artery. 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 Dunbar Head MRI 11/18/16 00:00 IMPRESSION: Early subacute nonhemorrhagic left hemisphere infarcts, correlate with prior CT exams Occluded left internal carotid artery at the skullbase, with flow identified in the carotid terminus through a patent left posterior communicating artery. 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 Dunbar Head CT 11/18/16 13:00 IMPRESSION: Stable nonhemorrhagic left-sided frontal and temporoparietal infarcts Chest X-Ray 11/24/16 00:00 IMPRESSION: CARDIAC ENLARGEMENT. VASCULAR CONGESTION. Assessment & Plan - Diagnosis (1) Left sided cerebral hemisphere cerebrovascular accident (CVA) Is this a current diagnosis for this admission?: YesPlan: Patient with left-sided CVA secondary to left carotid artery occlusion at its origin. Continue patient on Lipitor, aspirin, blood pressure control, and continued cessation of nicotine. Patient is currently pending inpatient rehabilitation placement. Patient currently receiving PT, OT, and speech therapy. She has had some improvement of her expressive aphasia. Patient is not yet back to baseline. (2) Female hirsutism Is this a current diagnosis for this admission?: YesPlan: We'll check a TSH and hemoglobin A1c. Have recommended that she have this evaluated as an outpatient. (3) Acanthosis nigricans Is this a current diagnosis for this admission?: YesPlan: Check hemoglobin A1c (4) Carotid artery occlusion Qualifiers: Laterality: left Qualified Code(s): I65.22 - Occlusion and stenosis of left carotid artery Is this a current diagnosis for this admission?: YesPlan: No surgical intervention has found to be effective for complete occlusion. Continue aspirin and statin. (5) Cerebral aneurysm Is this a current diagnosis for this admission?: YesPlan: Patient will require outpatient neurosurgical follow-up for this. (6) Coagulopathy Is this a current diagnosis for this admission?: YesPlan: Currently mildly elevated PTT. Current coagulopathy workup negative to date. Possibly secondary to administration of heparin. (7) Hypertension Qualifiers: Hypertension type: essential hypertension Qualified Code(s): I10 - Essential (primary) hypertension Is this a current diagnosis for this admission?: YesPlan: Currently well-controlled on no medication. (8) Tobacco abuse Is this a current diagnosis for this admission?: YesPlan: Encourage cessation. When necessary nicotine patch. (9) Obesity with serious comorbidity Is this a current diagnosis for this admission?: YesPlan: Encourage sensible weight loss. (10) Cough Is this a current diagnosis for this admission?: YesPlan: Will check chest x-ray for concerns of volume overload. - Time Time Spent with patient: 25-34 minutes Medications reviewed and adjusted accordingly: Yes Anticipated discharge: Acute Rehab Within: when bed available
[2016-11-24] MEDS ORDERED: FUROSEMIDE 20 MG TABLET PO ONE (17:45)
[2016-11-24] MEDS ORDERED: SENNOSIDES/DOCUSATE 8.6-50 MG 1 EACH TABLET PO SCH (22:00)
[2016-11-24] MEDS: ATORVASTATIN CALCIUM 10 MG TABLET PO SCH (23:00)
[2016-11-25] MEDS: FAMOTIDINE 20 MG TABLET PO SCH (09:49)
[2016-11-25] MEDS: ASPIRIN 325 MG TABLET PO SCH (09:49)
[2016-11-25] MEDS ORDERED: TIOTROPIUM BROMIDE DPI 5 CAP/KIT (18 MCG/CAP) IH SCH (10:00)
[2016-11-25] MEDS: ENOXAPARIN SODIUM INJ 40 MG/0.4 ML DISP.SYRIN SUBCUT SCH (11:03)
--- NOTE | 2016-11-25 11:42 | PDOC DISCHARGE SUMMARY ---
General - Admit/Disc Date/PCP Admission Date/Primary Care Provider: 11/17/16 17:58 Discharge Date: 11/25/16 - Discharge Diagnosis (1) Left sided cerebral hemisphere cerebrovascular accident (CVA) Is this a current diagnosis for this admission?: Yes (2) Carotid artery occlusion Is this a current diagnosis for this admission?: Yes (3) Cerebral aneurysm Is this a current diagnosis for this admission?: Yes (4) Coagulopathy Is this a current diagnosis for this admission?: Yes (5) Hypertension Is this a current diagnosis for this admission?: Yes (6) Obesity with serious comorbidity Is this a current diagnosis for this admission?: Yes (7) Cough Is this a current diagnosis for this admission?: Yes (8) Female hirsutism Is this a current diagnosis for this admission?: Yes (9) Prediabetes Is this a current diagnosis for this admission?: Yes (10) Tobacco abuse Is this a current diagnosis for this admission?: Yes - Additional Information Discharge Diet: Cardiac Discharge Activity: Activity As Tolerated, Slowly Increase Activity Home Medications: Albuterol Sulfate [Proair HFA Inhalation Aerosol 8.5 gm MDI] 2 puff IH Q6HP PRN hfa.aer.ad 11/25/16 Aspirin [Aspirin 325 mg Tablet] 325 mg PO DAILY tablet 11/25/16 Atorvastatin Calcium [Lipitor 10 mg Tablet] 10 mg PO QHS tablet 11/25/16 Famotidine [Pepcid 20 mg Tablet] 20 mg PO Q12 tablet 11/25/16 Nicotine [Nicoderm 7 mg/24 Hr Transdermal Patch] 1 each TD DAILYP PRN patch.td24 11/25/16 Sennosides/Docusate 8.6-50 mg [Senna Plus Tablet] 2 each PO QHS tablet Tiotropium [place] [Spiriva Handihaler 5 Cap/Kit (18 Mcg/Cap)] 1 cap IH DAILY kit 11/25/16 History of Present Illness History of Present Illness: TANISHA MOTT is a 51 year old female w/ reported hypertension, found at home by family confused and aphasic. Last known well was last night. Family reports patient did not bring kids to school today. At home, she was found confused and non-verbal. Ambulance was called and patient brought to hospital, head CT showed stroke in L frontal/temporal area and was refered for admission. No other information available at this time. Unable to contact family. Information obtained from ER records and EMS record. Information unobtainable from the patient at this time. Hospital Course Hospital Course: Patient was admitted per the standard stroke protocol set. Initial CT of the head revealed acute to early subacute nonhemorrhagic infarct in the left frontal and left posterior temporal lobe with low attenuation and mild local mass effect. Patient subsequently underwent CTA of the neck and head which revealed the left MCA be small and filling in a retrograde fashion from the anterior communicating artery and the left internal carotid artery was found to be occluded at its origin. MRI and MRA was obtained of brain. This revealed the left ICA being occluded at the carotid terminus where there was inflow from the posterior continue getting artery. There was a decreased number of distal branches of the left MCA correlating to her infarct. Patient was also found to have a 3-4 mm aneurysm off the medial aspect of the parasellar carotid distal to the left ophthalmic artery. Patient is strongly advised to have this followed up by neurosurgery as an outpatient. Patient was placed on aspirin, Lipitor, and has not required any blood pressure medication. Echocardiogram was performed which revealed normal EF and grade 2 out of 4 diastolic dysfunction. Patient is advised to stop smoking and nicotine patch has been placed as needed for her. Slowly patient's speech improved however this did reveal that she had significant expressive as well as receptive aphasia. Patient is ambulating well with some assistance. She does require supervision for her activities of daily living. Patient was felt to be a good candidate for inpatient rehabilitation and this was set up for her. Physical Exam Vital Signs: Temp Pulse Resp BP Pulse Ox 98.5 F 59 L 16 100/64 100 11/25/16 07:08 11/25/16 07:08 11/25/16 07:08 11/25/16 07:08 11/25/16 07:08 Intake & Output 11/24/16 11/25/16 11/26/16 06:59 06:59 06:59 Intake Total 575 890 Balance 575 890 Weight 96.9 kg 105.6 kg Exam: General: Awake alert and oriented x3, no acute respiratory distress HEENT: AT/NC, PERRL, EOMI, oropharynx is moist, pink, no scleral icterus, no conjunctival injection, hirsutism Neck: No JVD, trachea midline; acanthosis nigricans Chest: Clear to auscultation bilaterally CV: Regular rate and rhythm, normal S1 and S2, no murmur, rub, or gallop Abdomen: Soft, nontender to palpation, nondistended, active bowel sounds; no rebound, rigidity, or guarding Extremities: No cyanosis, clubbing or edema Neuro: Expressive and receptive aphasia, right upper extremity 4-/5, right lower extremity 4+/5 Psych: Normal mood and affect Results Laboratory Results: 11/18/16 03:55 Impressions: Head CTA 11/17/16 16:42 IMPRESSION: OCCLUDED LEFT INTERNAL CAROTID ARTERY WITH THE LEFT MCA BEING SUPPLIED VIA THE ANTERIOR COMMUNICATING ARTERY. EVOLVING INFARCTION LEFT FRONTAL LOBE AND LEFT TEMPORAL LOBE. Neck CTA 11/17/16 16:42 IMPRESSION: There is occlusion of the left internal carotid artery at its origin. No other arterial occlusions or significant stenoses are identified. Brain MRI with MRA 11/17/16 18:05 IMPRESSION: Early subacute nonhemorrhagic left hemisphere infarcts, correlate with prior CT exams Occluded left internal carotid artery at the skullbase, with flow identified in the carotid terminus through a patent left posterior communicating artery. 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 Dunbar Head MRI 11/18/16 00:00 IMPRESSION: Early subacute nonhemorrhagic left hemisphere infarcts, correlate with prior CT exams Occluded left internal carotid artery at the skullbase, with flow identified in the carotid terminus through a patent left posterior communicating artery. 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 Dunbar Head CT 11/18/16 13:00 IMPRESSION: Stable nonhemorrhagic left-sided frontal and temporoparietal infarcts Chest X-Ray 11/24/16 00:00 IMPRESSION: CARDIAC ENLARGEMENT. VASCULAR CONGESTION. Qualifiers PATEINT BEING DISCHARGED WITH ANY OF THE FOLLOWING DIAGNOSIS?: Stroke Stroke Pt being discharged on Anti-thrombolytic therapy?: Yes Stroke Pt being discharged on Anti-coagulation therapy?: No Reason(s) for not prescribing Anti-coagulation therapy:: Not indicated - No A. fib Stroke Pt being discharged on Statins?: Yes Plan Time Spent: Greater than 30 Minutes
[2016-11-25 12:03] VITALS: BP 107/74
== END 2016-11-25 15:30 | DRG 66 ==
LOC: ER 14:52 → EH 17:42 → UNDOADMIN 17:42 → EH 17:58 → 3N 19:55
PROVIDERS: ADMIT Internal Medicine; ATTEND Internal Medicine
DX: I63.232 Cerebral infarction due to unspecified occlusion or stenosis of left carotid arteries (principal); R47.01 Aphasia; I10 Essential (primary) hypertension; I72.0 Aneurysm of carotid artery; L68.0 Hirsutism; L83 Acanthosis nigricans; E66.9 Obesity, unspecified; F17.210 Nicotine dependence, cigarettes, uncomplicated; Z68.34 Body mass index [BMI] 34.0-34.9, adult
CPT/HCPCS: 36415; 36600; 51701; 70450; 70496; 70498; 70544; 70551; 71010; 71020; 80048; 80053; 80061; 80307; 81001; 82550; 82553; 82803; 83036; 83520; 84443; 84484; 84703; 85025; 85610; 85730; 86225; 86235; 86430; 93005; 93010; 93306; 94799; 96360; 99285; J1650; J3490; J7030; S0028

== ENCOUNTER 2017-07-16 07:09 | Emergency (ER) | payer BC ==
--- NOTE | 2017-07-16 07:52 | RADIOLOGY REPORT (SQ) ---
EXAM DESCRIPTION: ANKLE RIGHT COMPLETE COMPLETED DATE/TIME: 07/16/2017 7:38 am REASON FOR STUDY: pain/injury . Fall. COMPARISON: None. NUMBER OF VIEWS: Three views. TECHNIQUE: AP, lateral, and oblique radiographic images acquired of the right ankle. LIMITATIONS: None. FINDINGS: MINERALIZATION: Normal. BONES: There is a small avulsion fracture at the dorsal talus. A linear lucency is seen at the anter ior process of the calcaneus on the lateral view. The ankle mortise is maintained. JOINTS: Small effusion at the ankle. SOFT TISSUES: Diffuse soft tissue swelling at the ankle. No radiopaque foreign body. IMPRESSION: Small avulsion fracture at the dorsal talus. Linear lucency at the anterior process of the calcaneus, may represent a nondisplaced fracture. Ankle joint effusion and soft tissue swelling. TECHNICAL DOCUMENTATION: JOB ID: [id number] 2010 [employer]- All Rights Reserved
--- NOTE | 2017-07-16 07:52 | ER Document Report ---
ED Extremity Problem, Lower <DAVID POOLE - Last Filed: 07/16/17 08:54> - General Mode of Arrival: Ambulatory Information source: Patient TRAVEL OUTSIDE OF THE [place] IN LAST 30 DAYS: No <CARROLL GRAJEDA - Last Filed: 07/16/17 13:47> - General Chief Complaint: Foot Injury Stated Complaint: FOOT PAIN Time Seen by Provider: 07/16/17 07:38 Notes: Patient is a 52-year-old female that presents to the emergency department today with complaints of a fall that occurred yesterday. Patient has had associated right foot pain since the fall. Patient states she is unsure how she fell, she had no symptoms prior to this fall. Patient states "I was trying not to come here but this morning when I woke up the pain had increased and there was more swelling than yesterday". (CARROLL GRAJEDA) - Related Data Allergies/Adverse Reactions: shellfish derived Allergy (Verified 11/17/16 23:58) bee sting Allergy (Uncoded 11/17/16 23:58) Past Medical History - General Information source: Patient, [facility] Records - Social History Smoking Status: Never Smoker Cigarette use (# per day): No Chew tobacco use (# tins/day): No Frequency of alcohol use: Rare Drug Abuse: None Lives with: Family Family History: Reviewed & Not Pertinent, Other - unknown Patient has suicidal ideation: No Patient has homicidal ideation: No - Past Medical History Cardiac Medical History: Reports: Hx Hypertension Past Surgical History: Reports: Other - unknown <CARROLL GRAJEDA - Last Filed: 07/16/17 13:47> Review of Systems - Review of Systems Constitutional: No symptoms reported EENT: No symptoms reported Cardiovascular: No symptoms reported Respiratory: No symptoms reported Gastrointestinal: No symptoms reported Genitourinary: No symptoms reported Female Genitourinary: No symptoms reported Musculoskeletal: See HPI, Other - right foot pain Skin: No symptoms reported Hematologic/Lymphatic: No symptoms reported Neurological/Psychological: No symptoms reported -: Yes All other systems reviewed and negative <CARROLL GRAJEDA - Last Filed: 07/16/17 13:47> Physical Exam - General General appearance: Appears well, Alert In distress: None - HEENT Head: Normocephalic, Atraumatic Eyes: Normal Conjunctiva: Normal Extraocular movements intact: Yes - Respiratory Respiratory status: No respiratory distress - Cardiovascular Rhythm: Regular - Abdominal Inspection: Normal Distension: No distension - Extremities General upper extremity: Normal inspection, Normal ROM. No: Edema Foot: Tender - tenderness over dorsal proximal right foot, tenderness over talus. Right ankle swelling both medially and laterally with no tenderness. - Neurological Neuro grossly intact: Yes Cognition: Normal Orientation: AAOx4 - Psychological Associated symptoms: Normal affect, Normal mood - Skin Skin Temperature: Warm Skin Moisture: Dry Skin Color: Normal <CARROLL GRAJEDA - Last Filed: 07/16/17 13:47> - Vital signs Vitals: Temp Pulse Resp BP Pulse Ox 98.4 F 87 16 160/109 H 98 07/16/17 07:15 07/16/17 07:15 07/16/17 07:15 07/16/17 07:15 07/16/17 07:15 Course - Diagnostic Test Radiology reviewed: Image reviewed, Reports reviewed - Small avulsion fracture off the dorsal talus <DAVID POOLE - Last Filed: 07/16/17 08:54> - Vital Signs Vital signs: Temp Pulse Resp BP Pulse Ox 98.1 F 78 22 H 149/99 H 98 07/16/17 09:22 07/16/17 09:22 07/16/17 09:22 07/16/17 09:22 07/16/17 09:22 Discharge <DAVID POOLE - Last Filed: 07/16/17 08:54> <CARROLL GRAJEDA - Last Filed: 07/16/17 13:47> - Discharge Clinical Impression: Avulsion fracture of right talus Qualifiers: Encounter type: initial encounter Fracture type: closed Fracture alignment: displaced Qualified Code(s): S92.151A - Displaced avulsion fracture (chip fracture) of right talus, initial encounter for closed fracture Right foot sprain Qualifiers: Encounter type: initial encounter Qualified Code(s): S93.601A - Unspecified sprain of right foot, initial encounter Condition: Stable Disposition: HOME, SELF-CARE Additional Instructions: Avulsion Fracture You have an avulsion fracture, sometimes also called a flake or chip fracture. This type of fracture is caused by a sudden stress on a ligament or tendon. As the ligament pulls on the bone, the bone gives way, and a chip of bone cracks off. Small avulsion fractures are not usually serious. More often, the ligament injury which caused the bone chip is of greater concern. The treatment is usually the same as for a ligament or tendon injury -- that is, rest, ice, and elevation -- with careful resumption of use once the pain and swelling have resolved. For some avulsion fractures, a cast or special splint is necessary. Large avulsion fractures may even require an operation. Often the treatment plan will change depending on how well your injury progresses. Healing usually takes between three and six weeks. Future X-rays will most likely still show this bone chip, as it does not "fuse." Call the doctor or return at once if swelling and pain become severe, or if numbness develops. Foot Sprain Your injury is a sprain. A sprain results from stretching or tearing of the ligaments, usually from a twisting injury. The ligaments will require time and protection in order to heal properly. Many sprains are quite disabling and should be taken seriously. The usual initial treatment of sprains is cold packs, elevation, and rest of the injured area. Your physician has assessed the seriousness of your ligament injury, and has outlined a treatment plan. Understand that this treatment may change, depending on how you progress. If a re-examination was recommended, it is important that you follow up as instructed. Call the doctor any time if there is severe pain, numbness, or loss of function in the injured area. //////////////////////////////////////////////////////////////////////////////// //////////////////////////////////////////////////////////////////////////////// ///////////////// Elevate your foot all the time. Use the crutches to avoid or limit weightbearing. Take pain medication if needed. [facility]--call today to schedule an appointment. RETURN TO THE EMERGENCY ROOM IF ANY NEW OR WORSENING SYMPTOMS. Prescriptions: Oxycodone HCl/Acetaminophen [Percocet 5-325 mg Tablet] 1 tab PO ASDIR PRN #15 tablet PRN Reason: Referrals: [facility] ([place]) [Provider Group] - Follow up in 3-5 days Scribe Attestation: 07/16/17 07:57 I personally performed the services described in the documentation, reviewed and edited the documentation which was dictated to the scribe in my presence, and it accurately records my words and actions. (DAVID POOLE) Scribe Documentation - Scribe Written by Guillaume:: Guillaume Yates, 07/16/2017 1100 acting as scribe for :: Klever <CARROLL GRAJEDA - Last Filed: 07/16/17 13:47>
--- NOTE | 2017-07-16 08:20 | RADIOLOGY REPORT (SQ) ---
EXAM DESCRIPTION: FOOT RIGHT COMPLETE COMPLETED DATE/TIME: 07/16/2017 8:11 am REASON FOR STUDY: twisted, pain and swelling COMPARISON: None. NUMBER OF VIEWS: Three views. TECHNIQUE: AP, lateral and oblique radiographic images acquired of the right foot. LIMITATIONS: None. FINDINGS: MINERALIZATION: Normal. BONES: A small bony fragment on the dorsal surface of the talus. No other acute fracture or dislocat ion. Heel spur. No worrisome bone lesions. JOINTS: No effusions. SOFT TISSUES: No soft tissue swelling. No foreign body. OTHER: No other significant finding. IMPRESSION: SMALL BONY FRAGMENT ON THE DORSAL SURFACE OF THE TALUS, CONSISTENT WITH AVULSION INJURY. NO OTHER SIGNIFICANT FINDINGS. TECHNICAL DOCUMENTATION: JOB ID: [id number] [employer]- All Rights Reserved
[2017-07-16 09:24] VITALS: BP 149/99
== END 2017-07-16 09:46 | disposition home or self-care (01) ==
LOC: ER 07:09
DX: S92.151A Displaced avulsion fracture (chip fracture) of right talus, initial encounter for closed fracture (principal); S93.601A Unspecified sprain of right foot, initial encounter; W18.30XA Fall on same level, unspecified, initial encounter; I10 Essential (primary) hypertension; Z91.030 Bee allergy status; Z91.013 Allergy to seafood
CPT/HCPCS: 99283

== ENCOUNTER → 2017-12-28 | Outpatient (CLI) | payer BC ==
--- NOTE | 2017-12-30 13:20 | WOMENS IMAGING REPORT ---
EXAM DESCRIPTION: 3D SCREENING MAMMO BILAT COMPLETED DATE/TIME: 12/28/2017 10:03 am REASON FOR STUDY: SCREENING MAMMO Z12.31 ENCNTR SCREEN MAMMOGRAM FOR MALIGNANT NEOPLASM OF FREDY COMPARISON: None. TECHNIQUE: Standard craniocaudal and mediolateral oblique views of each breast recorded using digita l acquisition and breast tomosynthesis. LIMITATIONS: None. FINDINGS: No masses, calcifications or architectural distortion. No areas of suspicion. Read with the assistance of CAD. .[facility] - R2 Cenova Version 1.3 .[facility] - R2 Cenova Version 1.3 .[facility] - R2 Cenova Version 2.4 .[facility] R2 Cenova Version 2.4 .[facility] - R2 Fer[employer] Operator Version 9.2 IMPRESSION: NORMAL MAMMOGRAM. BIRADS 1. BREAST DENSITY: b. There are scattered areas of fibroglandular density. BIRAD: 1 NEGATIVE RECOMMENDATION: ROUTINE SCREENING COMMENT: The patient has been notified of the results by letter per SA requirements. Additional no tification policies are in place for contacting patient with suspicious or incomplete findings. Quality ID #[id number]: The [employer] recommends an annual screening mammogram for women aged 40 years or over. This facility utilizes a reminder system to ensure that all patients receive reminder letters, and/or direct phone calls for appointments. This includes reminders for routine scr eening mammograms, diagnostic mammograms, or other Breast Imaging Interventions when appropriate. Th is patient will be placed in the appropriate reminder system. The [employer] (ACR) has developed recommendations for screening MRI of the breast s in certain patient populations, to be used in conjunction with mammography. Breast MRI surveillanc e may be appropriate for women with more than 20% lifetime risk of developing breast cancer as deter mined by genetic testing, significant family history of the disease, or history of mantle radiation f or Hodgkins Disease. ACR Practice Guidelines 2008. DBT Technology DBT is a type of tomographic mammography. With conventional mammography, overlapping breast tissue ma y make lesions difficult to detect, even with good compression. DBT uses an x-ray tube that rotates a round the breast, taking images at different angles. These images are then combined to create thin sl ices of the breast that the radiologist can view as a 3D reconstruction. The [employer] unit can perform full-field digital mammograms (2D imaging); or DBT (3D imaging); or both, in a combination mode that quickly performs both the mammogram and the tomosynthesis scan while the breast is still compressed. PQRS 6045F: Fluoroscopic imaging is not utilized for breast tomosynthesis. TECHNICAL DOCUMENTATION: FINDING NUMBER: (1) ASSESSMENT: (1) JOB ID: [id number] [employer]- All Rights Reserved Reading location - IP/workstation name: [email or web address]
== END ==
LOC: WI 09:45
PROVIDERS: ATTEND Physician Assistant
DX: Z12.31 Encounter for screening mammogram for malignant neoplasm of breast (principal)
CPT/HCPCS: 77063; 77067

== ENCOUNTER 2019-02-12 16:40 | Emergency (ER) | payer BC, MEDICAID ==
[2019-02-12 17:26] LABS: ABSOLUTE EOSINOPHILS # (AUTO) 0.1 10^3/uL (0.0-0.6); ABSOLUTE MONOCYTES (AUTO) 0.9 10^3/uL (0.1-1.4); ABSOLUTE NEUT (AUTO) 1.6 10^3/uL (1.7-8.2); BASOPHILS % (AUTO) 0.2 % (0-2); EOSINOPHILS % (AUTO) 1.9 % (0-6); HEMATOCRIT 42.7 % (36.0-47.0); HEMOGLOBIN 13.9 g/dL (12.0-15.5); LYMPHOCYTES % (AUTO) 43.2 % (13-45); MEAN CORPUSCULAR HEMOGLOBIN 26.4 pg (27.0-33.4); MEAN CORPUSCULAR HGB CONC 32.6 g/dL (32.0-36.0); MEAN CORPUSCULAR VOLUME 81 fl (80-97); MONOCYTES % (AUTO) 19.2 % (3-13); PLATELET COUNT 193 10^3/uL (150-450); RED BLOOD COUNT 5.26 10^6/uL (3.72-5.28); RED CELL DISTRIBUTION WIDTH 15.1 % (11.5-14.0); SEGMENTED NEUTROPHILS % (AUTO) 35.5 % (42-78); TOTAL CELLS COUNTED % (AUTO) 100 %; WHITE BLOOD COUNT 4.6 10^3/uL (4.0-10.5)
[2019-02-12 17:34] LABS: ALANINE AMINOTRANSFERASE 17 U/L (9-52); ALKALINE PHOSPHATASE 66 U/L (38-126); ANION GAP 10 (5-19); ASPARTATE AMINO TRANSFERASE 24 U/L (14-36); BILIRUBIN,DIRECT 0.3 mg/dL (0.0-0.4); BILIRUBIN,TOTAL 0.4 mg/dL (0.2-1.3); BLOOD UREA NITROGEN 9 mg/dL (7-20); CALCIUM 9.4 mg/dL (8.4-10.2); CARBON DIOXIDE 26 mmol/L (22-30); CHLORIDE 105 mmol/L (98-107); GLUCOSE 96 mg/dL (75-110); POTASSIUM 3.9 mmol/L (3.6-5.0); TOTAL PROTEIN 7.7 g/dL (6.3-8.2)
--- NOTE | 2019-02-12 18:14 | RADIOLOGY REPORT (SQ) ---
EXAM DESCRIPTION: CT HEAD WITHOUT COMPLETED DATE/TIME: 02/12/2019 6:01 pm REASON FOR STUDY: mental status change COMPARISON: 11/18/2016 TECHNIQUE: Axial images acquired through the brain without intravenous contrast. Images reviewed wi th bone, brain and subdural windows. Additional sagittal and coronal reconstructions were generated. Images stored on PACS. All CT scanners at this facility use dose modulation, iterative reconstruction, and/or weight based d osing when appropriate to reduce radiation dose to as low as reasonably achievable (ALARA). [facility]: Dose Right [facility]: CareDose [facility]: Dose Right [facility]: Teradose 4D [facility]: Smart Sazze RADIATION DOSE: CT Rad equipment meets quality standard of care and radiation dose reduction techniq ues were employed. CTDIvol: 53.2 mGy. DLP: 964 mGy-cm. mGy. LIMITATIONS: None. FINDINGS: VENTRICLES: Normal size and contour. CEREBRUM: No masses. No hemorrhage. No midline shift. No evidence for acute infarction. Left front al and parietal encephalomalacia. CEREBELLUM: No masses. No hemorrhage. No alteration of density. No evidence for acute infarction. EXTRAAXIAL SPACES: No fluid collections. No masses. ORBITS AND GLOBE: No intra- or extraconal masses. Normal contour of globe without masses. CALVARIUM: No fracture. PARANASAL SINUSES: No fluid or mucosal thickening. SOFT TISSUES: No mass or hematoma. OTHER: No other significant finding. IMPRESSION: No acute intracranial pathology. Left frontal and parietal encephalomalacia in keeping with prior infarction. EVIDENCE OF ACUTE STROKE: NO. COMMENT: Quality ID # [id number]: Final reports with documentation of one or more dose reduction techniques (e.g., Automated exposure control, adjustment of the mA and/or kV according to patient size, use of iterative reconstruction technique) TECHNICAL DOCUMENTATION: JOB ID: [id number] [employer]- All Rights Reserved Reading location - IP/workstation name: [email or web address]
[2019-02-12] MEDS ORDERED: ACETAMINOPHEN 325 MG TABLET PO ONE (18:36)
--- NOTE | 2019-02-12 18:36 | ER Document Report ---
ED General - General Chief Complaint: Medical Complaint Stated Complaint: POSSIBLE SEIZURE Time Seen by Provider: 02/12/19 17:37 Primary Care Provider: VIN DURHAM MD [NO LOCAL MD] - Follow up in 3-5 days LUIS FERNÁNDEZ MD [Primary Care Provider] - Follow up in 3-5 days TRAVEL OUTSIDE OF THE [place] IN LAST 30 DAYS: No - HPI Notes: Patient is a 53-year-old female that presents to the emergency department for chief complaint of seizure-like activity. She states she was sitting in her bed watching TV and had a seizure. She does not recall the events. She states her son came in and saw her and went and got her mother. Mother is at bedside saying that patient was sitting up with her eyes open and upper extremities contracted and shaking. This episode lasted about 15 minutes. There was no urinary or fecal incontinence. Patient did not have any reported postictal state. She states she is not back to her normal function as soon as the shaking stopped and did not know what had just happened. She does not have history of seizure disorder but has had a stroke in the past. Patient denies any head injury. Her daughter does have epilepsy. Past Medical History: Stroke Past Surgical History: Reviewed in chart Social History: Denies drugs alcohol and tobacco Family History: Reviewed and noncontributory for presenting illness Allergies: Reviewed, see documented allergy list. REVIEW OF SYSTEMS: CONSTITUTIONAL : No fever No chills No diaphoresis No recent illness EENT: No vision changes No congestion No sore throat CARDIOVASCULAR: No chest pain No palpitations RESPIRATORY: No shortness of breath No cough No difficulty breathing GASTROINTESTINAL: No abdominal pain No nausea No vomiting No diarrhea GENITOURINARY: No dysuria No hematuria No difficulty urinating MUSCULOSKELETAL: No back pain No leg pain No arm pain SKIN: No rashes No lesions LYMPHATIC: No swollen, enlarged glands. NEUROLOGICAL: Seizure No lightheadedness No headache No weakness No paresthesias PSYCHIATRIC: No anxiety No depression PHYSICAL EXAMINATION: Vital signs reviewed, nursing noted reviewed. GENERAL: Well-appearing, well-nourished and in no acute distress. HEAD: Atraumatic, normocephalic. EYES: Eyes appear normal, extraocular movements intact, sclera anicteric, conjunctiva are normal. ENT: nares patent, oropharynx clear without exudates. Moist mucous membranes. NECK: Normal range of motion, supple without lymphadenopathy LUNGS: Breath sounds clear to auscultation bilaterally and equal. No wheezes rales or rhonchi. HEART: Regular rate and rhythm without murmurs ABDOMEN: Soft, nontender, normoactive bowel sounds. No rebound, guarding, or rigidity. No masses appreciated. EXTREMITIES: Nontender, good range of motion, no pitting or edema. NEUROLOGICAL: Moves all extremities spontaneously Motor and sensory grossly intact on exam. PSYCH: Normal mood, normal affect. SKIN: Warm, Dry, normal turgor, no rashes or lesions noted on exposed skin - Related Data Allergies/Adverse Reactions: shellfish derived Allergy (Verified 11/17/16 23:58) bee sting Allergy (Uncoded 11/17/16 23:58) Past Medical History - Social History Smoking Status: Unknown if Ever Smoked Family History: Reviewed & Not Pertinent, Other - unknown Patient has suicidal ideation: No Patient has homicidal ideation: No - Past Medical History Cardiac Medical History: Reports: Hx Hypertension Renal/ Medical History: Denies: Hx Peritoneal Dialysis Past Surgical History: Reports: Other - unknown Physical Exam - Vital signs Vitals: Resp Pulse Ox 24 H 97 02/12/19 16:46 02/12/19 16:46 Course - Re-evaluation Re-evalutation: 02/12/19 18:37 Vitals reviewed. Nursing notes reviewed. Patient is well-appearing with no postictal state. Her EKG shows no dysrhythmia. Lab work shows no acute anemia or electrolyte derangement. Patient had CT brain which shows chronic changes and no acute bleed or mass. She has not had any seizure activity in the emergency room today. Patient does have a neurologist that she is seen from her strokes. It is possible that this is a new onset seizure. I did personnel counselor her on seizure precautions including no driving, bathing, or swimming until she can follow for outpatient management. If she has another seizure activity in the next 24 hours she will return to the emergency room. Patient and family in agreement with plan of care and discharge. Laboratory 02/12/19 02/12/19 02/12/19 16:20 16:20 16:20 WBC 4.6 RBC 5.26 Hgb 13.9 Hct 42.7 MCV 81 MCH 26.4 L MCHC 32.6 RDW 15.1 H Plt Count 193 Seg Neutrophils % 35.5 L Lymphocytes % 43.2 Monocytes % 19.2 H Eosinophils % 1.9 Basophils % 0.2 Absolute Neutrophils 1.6 L Absolute Lymphocytes 2.0 Absolute Monocytes 0.9 Absolute Eosinophils 0.1 Absolute Basophils 0.0 Sodium 141.0 Potassium 3.9 Chloride 105 Carbon Dioxide 26 Anion Gap 10 BUN 9 Creatinine 0.78 Est GFR ( Amer) > 60 Est GFR (Non-Af Amer) > 60 Glucose 96 Calcium 9.4 Total Bilirubin 0.4 Direct Bilirubin 0.3 Neonat Total Bilirubin Not Reportable Neonat Direct Bilirubin Not Reportable Neonat Indirect Bili Not Reportable AST 24 ALT 17 Alkaline Phosphatase 66 Total Protein 7.7 Albumin 4.0 Serum HCG, Qual NEGATIVE Head CT 02/12/19 17:38 IMPRESSION: No acute intracranial pathology. Left frontal and parietal encephalomalacia in keeping with prior infarction. EVIDENCE OF ACUTE STROKE: NO. - Vital Signs Vital signs: Temp Pulse Resp BP Pulse Ox 98.4 F 114 H 17 174/121 H 95 02/12/19 17:12 02/12/19 17:12 02/12/19 17:31 02/12/19 17:31 02/12/19 17:31 - Laboratory Result Diagrams: 02/12/19 16:20 02/12/19 16:20 Laboratory results interpreted by me: 02/12/19 16:20 MCH 26.4 L RDW 15.1 H Seg Neutrophils % 35.5 L Monocytes % 19.2 H Absolute Neutrophils 1.6 L - EKG Interpretation by Me Additional EKG results interpreted by me: 02/12/19 18:36 Interpreted by myself 1747: Normal sinus rhythm, rate 89, left axis, no STEMI, diffuse T wave flattening Discharge - Discharge Clinical Impression: Seizure-like activity Condition: Stable Disposition: HOME, SELF-CARE Instructions: New Seizure ([facility]) Additional Instructions: Please return to the emergency department if you have any worsening, or concern of your symptoms. Please return to the emergency department if you develop chest pain, difficulty breathing, severe abdominal pain, or ongoing vomiting. Please follow-up with your primary care physician in 2-3 days If prescribed, take all medications as directed. If you have any questions or concerns do not hesitate to return the emergency department for evaluation. Contact your neurologist tomorrow for follow-up and outpatient seizure work-up If you have another seizure in the next 24 hours return to the emergency room Do not do any activities that could cause harm if you began having a seizure including driving, taking baths, and swimming Referrals: LUIS FERNÁNDEZ MD [Primary Care Provider] - Follow up in 3-5 days VIN DURHAM MD [NO LOCAL MD] - Follow up in 3-5 days
[2019-02-12 19:02] VITALS: BP 162/108
--- NOTE | 2019-02-12 22:20 | EKG REPORT ---
SEVERITY:- BORDERLINE ECG - SINUS RHYTHM PROBABLE LEFT ATRIAL ABNORMALITY LEFT AXIS DEVIATION BORDERLINE T WAVE ABNORMALITIES : Confirmed by: Cindy Uribe 12-Feb-2019 22:19:00
== END 2019-02-12 19:11 | disposition home or self-care (01) ==
LOC: ER 16:40
DX: R29.818 Other symptoms and signs involving the nervous system (principal); G93.89 Other specified disorders of brain; Z86.73 Personal history of transient ischemic attack (TIA), and cerebral infarction without residual deficits; Z82.0 Family history of epilepsy and other diseases of the nervous system
CPT/HCPCS: 36415; 70450; 80053; 84703; 85025; 93005; 93010; 99285

== ENCOUNTER 2019-06-17 19:44 | Emergency (ER) | payer BC, MEDICAID ==
[2019-06-17] MEDS ORDERED: ACETAMINOPHEN 325 MG TABLET PO ONE (20:34)
--- NOTE | 2019-06-17 20:36 | ER Document Report ---
ED Seizure - General Chief Complaint: Probable Seizure Stated Complaint: POSSIBLE SEIZURE Time Seen by Provider: 06/17/19 20:20 Primary Care Provider: VIN DURHAM MD [NO LOCAL MD] - 06/19/19 LUIS FERNÁNDEZ MD [Primary Care Provider] - 06/19/19 Notes: Patient is a 54-year-old female who presents to the emergency department after a seizure. Mother is at bedside to provide additional history. Mother states that patient had a headache and patient then began shaking. Mother states this happened about 20 minutes. Patient became unresponsive. Patient is alert and oriented right now. Patient states that she has a headache. Patient is on oxybutynin, pravastatin, aspirin, and cetirizine. Patient states that she has never been diagnosed with high blood pressure. She was seen here in the emergency department at her last visit in December with the same situation. - Related Data Allergies/Adverse Reactions: shellfish derived Allergy (Verified 11/17/16 23:58) bee sting Allergy (Uncoded 11/17/16 23:58) Past Medical History - Social History Smoking Status: Never Smoker Family History: Reviewed & Not Pertinent, Other - unknown Patient has suicidal ideation: No Patient has homicidal ideation: No - Past Medical History Cardiac Medical History: Reports: Hx Hypertension Renal/ Medical History: Denies: Hx Peritoneal Dialysis Past Surgical History: Reports: Other - unknown Review of Systems - Review of Systems Notes: REVIEW OF SYSTEMS: CONSTITUTIONAL : Denies recent illness. Denies recent unintentional weight loss. Denies fever, chills, or sweats. EENT: Denies eye, ear, throat, or mouth pain, discharge, or symptoms. Denies nasal or sinus congestion. CARDIOVASCULAR: Denies chest pain. RESPIRATORY: Denies shortness of breath, cough, congestion, difficulty breathing, or wheezing. GASTROINTESTINAL: Denies nausea, vomiting, and diarrhea. Denies abdominal pain. Denies constipation. GENITOURINARY: Denies difficulty urinating, burning, blood in urine, urgency or frequency. MUSCULOSKELETAL: Denies neck and back pain. Denies joint pain or swelling. SKIN: Denies rash, itchiness, or lesions HEMATOLOGIC : Denies easy bruising or bleeding. LYMPHATIC: Denies swollen, painful, enlarged glands. NEUROLOGICAL: See HPI. PSYCHIATRIC: Denies stress, anxiety, alteration in sleep patterns, or depression. All other systems reviewed and negative. Physical Exam - Vital signs Vitals: Resp BP Pulse Ox 19 183/123 H 97 06/17/19 19:55 06/17/19 19:55 06/17/19 19:55 - Notes Notes: PHYSICAL EXAMINATION: GENERAL: Appears well, healthy, well-nourished, no acute distress. HEAD: Normocephalic, atraumatic. EYES: PERRL, conjunctiva normal, all extraocular movements intact, sclera nonicteric ENT: Moist mucous membranes. Tenderness noted to frontal and maxillary sinuses NECK: Supple, no noticeable swelling, redness, rash. Normal range of motion. LUNGS: Equal breath sounds bilaterally and clear to auscultation. No wheezes rales or rhonchi. CARDIOVASCULAR: S1-S2, regular rate, regular rhythm. Radial pulses 2+, normal. ABDOMEN: Normoactive bowel sounds. Soft, nontender, no guarding, no rebound tenderness, and no masses palpated. EXTREMITIES: Normal strength and range of motion, no pitting or edema. No cyanosis. NEUROLOGICAL: Moves all extremities upon command. Strength 5/5 in all extremities. PSYCH: Normal mood, normal affect. SKIN: Warm, dry. No rash, lesions, ulcerations noted. Normal skin turgor. Course - Re-evaluation Re-evalutation: 06/17/19 23:[address] of the head is negative for any acute findings. Patient has stable encephalomalacia. Stable patient reports that she still has pain, she states that she is supposed be taking Flonase. Patient admits to having sinus pressure. There is no comment on the patient's sinuses on her CT, but due to the patient having sinus pressure for the past 3 weeks. I will treat her for acute sinusitis. Patient reports having yellow/green discharge. I suspect this may be the reason why she ended up having a possible seizure today. Patient's blood pressure was elevated, but when I was not in the room her blood pressure had come down to 140s over 90. She will follow-up with her primary care provider and neurology in regards to this visit. Mother is also in agreement with this plan, as mother takes care of her. Follow-up precautions were given. Verbal discharge instructions were given to the patient. They verbalized understanding. They are stable for discharge. - Vital Signs Vital signs: Temp Pulse Resp BP Pulse Ox 98.3 F 99 20 161/101 H 100 06/17/19 20:02 06/17/19 20:02 06/17/19 23:04 06/17/19 23:04 06/17/19 23:04 - Laboratory Result Diagrams: 06/17/19 19:55 06/17/19 19:55 Laboratory results interpreted by me: 06/17/19 06/17/19 06/17/19 19:55 19:55 21:00 RBC 5.37 H MCH 26.6 L RDW 14.7 H Chloride 108 H Glucose 129 H Urine Protein 30 H Urine Urobilinogen 4.0 H Discharge - Discharge Clinical Impression: Elevated blood pressure reading Acute sinusitis Qualifiers: Sinusitis location: frontal Recurrence: non-recurrent Qualified Code(s): J01.10 - Acute frontal sinusitis, unspecified Hypertension Qualifiers: Hypertension type: unspecified Qualified Code(s): I10 - Essential (primary) hypertension Condition: Stable Disposition: HOME, SELF-CARE Additional Instructions: You were seen today in the emergency department for headache, sinus pain, and seizure-like activity. Please follow-up with your neurologist in regards to this visit. Please also follow-up with your primary care provider in regards to this visit. You are being started on antibiotics to help with your sinus infection. Please take Tylenol 1000 mg every 6 hours for your pain. Please use your Flonase every day, as this will help with your symptoms. Please slowly cut down on smoking, as this puts you at higher risk for medical problems. Prescriptions: Amox Tr/Potassium Clavulanate [Augmentin 875-125 Tablet] 1 tab PO BID 10 Days #20 tablet Forms: Smoking Cessation Education Referrals: LUIS FERNÁNDEZ MD [Primary Care Provider] - 06/19/19 VIN DURHAM MD [[facility][1] MD] - 06/19/19
[2019-06-17 20:40] LABS: ABSOLUTE EOSINOPHILS # (AUTO) 0.1 10^3/uL (0.0-0.6); ABSOLUTE LYMPHOCYTES (AUTO) 2.2 10^3/uL (0.5-4.7); ABSOLUTE MONOCYTES (AUTO) 0.6 10^3/uL (0.1-1.4); ABSOLUTE NEUT (AUTO) 2.3 10^3/uL (1.7-8.2); BASOPHILS % (AUTO) 0.6 % (0-2); EOSINOPHILS % (AUTO) 2.2 % (0-6); HEMATOCRIT 44.2 % (36.0-47.0); HEMOGLOBIN 14.3 g/dL (12.0-15.5); LYMPHOCYTES % (AUTO) 42.1 % (13-45); MEAN CORPUSCULAR HEMOGLOBIN 26.6 pg (27.0-33.4); MEAN CORPUSCULAR HGB CONC 32.4 g/dL (32.0-36.0); MEAN CORPUSCULAR VOLUME 82 fl (80-97); MONOCYTES % (AUTO) 12.2 % (3-13); PLATELET COUNT 205 10^3/uL (150-450); RED BLOOD COUNT 5.37 10^6/uL (3.72-5.28); RED CELL DISTRIBUTION WIDTH 14.7 % (11.5-14.0); SEGMENTED NEUTROPHILS % (AUTO) 42.9 % (42-78); TOTAL CELLS COUNTED % (AUTO) 100 %; WHITE BLOOD COUNT 5.3 10^3/uL (4.0-10.5)
[2019-06-17 20:52] LABS: ALBUMIN 3.8 g/dL (3.5-5.0); ALKALINE PHOSPHATASE 65 U/L (38-126); ANION GAP 8 (5-19); ASPARTATE AMINO TRANSFERASE 24 U/L (14-36); BILIRUBIN,DIRECT 0.2 mg/dL (0.0-0.4); BILIRUBIN,TOTAL 0.2 mg/dL (0.2-1.3); BLOOD UREA NITROGEN 9 mg/dL (7-20); CALCIUM 9.6 mg/dL (8.4-10.2); CARBON DIOXIDE 28 mmol/L (22-30); CHLORIDE 108 mmol/L (98-107); GLUCOSE 129 mg/dL (75-110); TOTAL PROTEIN 7.6 g/dL (6.3-8.2)
[2019-06-17 21:27] LABS: APPEARANCE,URINE SLIGHTLY-CLOUDY; BILIRUBIN,URINE NEGATIVE (NEGATIVE); COLOR,URINE YELLOW; GLUCOSE, URINE NEGATIVE (NEGATIVE); KETONES,URINE NEGATIVE (NEGATIVE); PROTEIN,URINE 30 mg/dL (NEGATIVE); URINE SPECIFIC GRAVITY 1.017
[2019-06-17 21:28] LABS: BACTERIA,URINE 3+ /HPF
--- NOTE | 2019-06-17 21:29 | RADIOLOGY REPORT (SQ) ---
EXAM DESCRIPTION: XR CHEST 1 VIEW COMPLETED DATE/TME: 06/17/2019 20:32 CLINICAL HISTORY: 54 years Female fever COMPARISON: 11/17/2016 FINDINGS: The cardiomediastinal silhouette appears unremarkable. No consolidating infiltrates or pleural effusions. No pneumothorax. IMPRESSION: No acute abnormality is identified.
--- NOTE | 2019-06-17 21:40 | RADIOLOGY REPORT (SQ) ---
EXAM DESCRIPTION: CT HEAD WITHOUT IV CONTRAST COMPLETED DATE/TME: 06/17/2019 20:32 CLINICAL HISTORY: 54 years, Female, Seizure; HTN EXAM DESCRIPTION: CLINICAL HISTORY: Seizure; HTN COMPARISON: 02/12/2019 TECHNIQUE: Contiguous axial CT images of the head were obtained. Coronal and sagittal reconstructions were created from the axial data. This exam was performed according to our departmental dose-optimization program, which includes automated exposure control, adjustment of the mA and/or kV according to patient size and/or use of iterative reconstruction technique. FINDINGS: Encephalomalacia involves the left frontal lobe and left temporal lobe and portions of the left parietal and occipital lobes and is unchanged. There is no evidence of acute mass, mass effect, midline shift or hemorrhage. The ventricles and extra-axial CSF spaces are unremarkable. No acute abnormalities of the bones is seen. IMPRESSION: No acute intracranial abnormality.
[2019-06-17] MEDS ORDERED: AMOXICILLIN TRIHYD 250 MG CAPSULE PO ONE (23:20)
[2019-06-17 23:35] VITALS: BP 161/101
--- NOTE | 2019-06-18 08:06 | EKG REPORT ---
SEVERITY:- ABNORMAL ECG - SINUS TACHYCARDIA PROBABLE LEFT VENTRICULAR HYPERTROPHY NONSPECIFIC ST-T CHANGES- INFERIOR LEADS : Confirmed by: Enoch Marques MD 18-Jun-2019 08:06:25
== END 2019-06-17 23:38 | disposition home or self-care (01) ==
LOC: ER 19:44
DX: I10 Essential (primary) hypertension (principal); J01.10 Acute frontal sinusitis, unspecified; R51 Headache; R56.9 Unspecified convulsions; Z91.030 Bee allergy status; Z91.013 Allergy to seafood
CPT/HCPCS: 93005; 36415; 85025; 80053; 81001; 71045; 70450; 93010; J3490

== ENCOUNTER → 2019-07-27 | Outpatient (CLI) | payer BC, MEDICAID ==
--- NOTE | 2019-07-27 13:39 | RADIOLOGY REPORT (SQ) ---
EXAM DESCRIPTION: CAROTID DOPPLER COMPLETED DATE/TIME: 07/27/2019 11:55 am REASON FOR STUDY: OCCLUSION AND STENOSIS OF LEFT CAROTID ARTERY I65.22 OCCLUSION AND STENOSIS OF LE FT CAROTID ARTERY COMPARISON: 11/18/2016. TECHNIQUE: Grayscale ultrasound, Doppler velocity and spectra, and color Doppler images acquired of the extra-cranial carotid and vertebral arteries. Images stored on PACS. LIMITATIONS: None. FINDINGS: RIGHT CAROTID CCA Velocities: Normal spectral waveform. Grayscale evaluation with mild intimal thickening and no s ignificant stenosis. ICA Velocities Peak systolic 77 cm/s. End diastolic 31 cm/s. Proximal ICA/CCA peak systolic ratio 1.3. Normal spectral waveform. Grayscale evaluation with mild scattered plaque with less than 50% luminal stenosis for LEFT CAROTID CCA Velocities: Normal spectral waveform. Grayscale evaluation without significant stenosis. ICA Velocities Peak systolic occluded. Findings stable compared to exam dated 11/17/2016. End diastolic occluded. Proximal ICA/CCA peak systolic ratio NA. No flow visualized. Grayscale evaluation demonstrates echogenic intraluminal material throughout. VERTEBRAL ARTERIES: Antegrade flow. Normal waveforms. SUBCLAVIAN ARTERIES: Not imaged. OTHER: No other significant finding. IMPRESSION: 1. Occluded left internal carotid artery, stable compared to exam dated 11/17/2016. 2. No evidence of significant stenosis within the right ICA. 3. Antegrade vertebral arteries. COMMENT: Quality ID #[id number]: Velocity criteria are extrapolated from the diameter data as defined by t he Society of Radiologists in Ultrasound Consensus Conference. Radiology 2003: 229; 340-346. TECHNICAL DOCUMENTATION: JOB ID: [id number] [employer]- All Rights Reserved Reading location - IP/workstation name: [email or web address]
== END ==
LOC: RAD 10:44
PROVIDERS: ATTEND Family Medicine
DX: I65.22 Occlusion and stenosis of left carotid artery (principal)
CPT/HCPCS: 93880

== ENCOUNTER 2019-11-22 21:30 | Emergency (ER) | payer BC, MEDICAID ==
[2019-11-22 22:31] LABS: ABSOLUTE EOSINOPHILS # (AUTO) 0.1 10^3/uL (0.0-0.6); ABSOLUTE LYMPHOCYTES (AUTO) 1.6 10^3/uL (0.5-4.7); ABSOLUTE MONOCYTES (AUTO) 0.9 10^3/uL (0.1-1.4); ABSOLUTE NEUT (AUTO) 3.8 10^3/uL (1.7-8.2); BASOPHILS % (AUTO) 0.3 % (0-2); EOSINOPHILS % (AUTO) 1.2 % (0-6); HEMATOCRIT 39.9 % (36.0-47.0); HEMOGLOBIN 13.3 g/dL (12.0-15.5); LYMPHOCYTES % (AUTO) 25.5 % (13-45); MEAN CORPUSCULAR HGB CONC 33.5 g/dL (32.0-36.0); MEAN CORPUSCULAR VOLUME 81 fl (80-97); MONOCYTES % (AUTO) 14.6 % (3-13); PLATELET COUNT 191 10^3/uL (150-450); RED BLOOD COUNT 4.94 10^6/uL (3.72-5.28); SEGMENTED NEUTROPHILS % (AUTO) 58.4 % (42-78); TOTAL CELLS COUNTED % (AUTO) 100 %; WHITE BLOOD COUNT 6.4 10^3/uL (4.0-10.5)
[2019-11-22 22:49] LABS: ALBUMIN 3.8 g/dL (3.5-5.0); ALKALINE PHOSPHATASE 59 U/L (38-126); ANION GAP 7 (5-19); ASPARTATE AMINO TRANSFERASE 26 U/L (14-36); BILIRUBIN,DIRECT 0.2 mg/dL (0.0-0.4); BILIRUBIN,TOTAL 0.2 mg/dL (0.2-1.3); BLOOD UREA NITROGEN 9 mg/dL (7-20); CALCIUM 9.5 mg/dL (8.4-10.2); CARBON DIOXIDE 28 mmol/L (22-30); CHLORIDE 103 mmol/L (98-107); GLUCOSE 111 mg/dL (75-110); POTASSIUM 3.2 mmol/L (3.6-5.0); TOTAL PROTEIN 7.4 g/dL (6.3-8.2)
[2019-11-22 22:50] LABS: ALCOHOL < 10 mg/dL (NONE DETECTED)
[2019-11-22 23:36] LABS: APPEARANCE,URINE CLEAR; BILIRUBIN,URINE NEGATIVE (NEGATIVE); COLOR,URINE STRAW; GLUCOSE, URINE NEGATIVE (NEGATIVE); KETONES,URINE NEGATIVE (NEGATIVE); LEUKOCYTE ESTERASE,URINE NEGATIVE (NEGATIVE); NITRITE,URINE NEGATIVE (NEGATIVE); PROTEIN,URINE NEGATIVE (NEGATIVE); URINE SPECIFIC GRAVITY 1.008; UROBILINOGEN,URINE NEGATIVE mg/dL (<2.0)
[2019-11-22 23:46] LABS: URINE AMPHETAMINES SCREEN NEGATIVE; URINE BARBITURATES SCREEN NEGATIVE; URINE BENZODIAZEPINES SCREEN NEGATIVE; URINE COCAINE SCREEN NEGATIVE; URINE MARIJUANA (THC) SCREEN NEGATIVE; URINE METHADONE SCREEN NEGATIVE; URINE PHENCYCLIDINE SCREEN NEGATIVE
--- NOTE | 2019-11-23 00:04 | ER Document Report ---
ED General - General Chief Complaint: Probable Seizure Stated Complaint: ALTERED MENTAL STATUS Time Seen by Provider: 11/22/19 23:13 Primary Care Provider: LUIS FERNÁNDEZ MD [Primary Care Provider] - Follow up as needed Notes: 54-year-old female brought in by EMS after reported seizure at home. Patient states that she was watching TV and then she felt funny and called her mom and then she does not remember anything after that. Mother described a shaking episode consistent with 2 other episodes that she has had over the past year. Patient states she was never formally diagnosed with seizures. Patient thinks she may have seen a neurologist but does not know which neurologist she has seen. Patient showed me her medications and states they are her only medications, she does not have any other medications at home. There are no antiepileptics listed in there. Patient states that she currently feels a little bit woozy, complains of a frontal headache and some mild neck pain all of which started after the seizure episode. Patient additionally complains of some skin changes underneath her left breast t hat have been going on for several weeks. Denies any pain. TRAVEL OUTSIDE OF THE [place] IN LAST 30 DAYS: No - Related Data Allergies/Adverse Reactions: shellfish derived Allergy (Verified 11/17/16 23:58) bee sting Allergy (Uncoded 11/17/16 23:58) Home Medications: Aspirin 325, Zyrtec 10mg, HCTZ 12.5mg, Oxybutynin 10mg, Pravastatin 40mg. Past Medical History - General Information source: Patient - Social History Smoking Status: Current Every Day Smoker Frequency of alcohol use: None Drug Abuse: None Family History: Reviewed & Not Pertinent Patient has suicidal ideation: No Patient has homicidal ideation: No - Past Medical History Cardiac Medical History: Reports: Hx Hypertension Neurological Medical History: Reports: Hx Seizures Renal/ Medical History: Denies: Hx Peritoneal Dialysis Past Surgical History: Reports: Other - unknown Review of Systems - Review of Systems Constitutional: No symptoms reported. denies: Diaphoresis, Fever, Malaise, Weakness EENT: No symptoms reported Cardiovascular: See HPI, Syncope. denies: Chest pain, Palpitations, Heart racing Respiratory: No symptoms reported Gastrointestinal: No symptoms reported Musculoskeletal: See HPI, Neck pain Skin: See HPI - Skin changes under the left breast. Neurological/Psychological: See HPI, Seizure, Headaches -: Yes All other systems reviewed and negative Physical Exam - Vital signs Vitals: Temp Resp Pulse Ox 99.7 F 25 H 97 11/22/19 21:40 11/22/19 21:40 11/22/19 21:40 Interpretation: Normal - Patient no longer tachypneic on my physical examination. - Notes Notes: GENERAL: Alert, interacts well. No acute distress. HEAD: Normocephalic, atraumatic EYES: Pupils equal, round and reactive to light, extraocular movements intact. ENT: Oral mucosa moist, tongue midline. NECK: Full range of motion, supple, trachea midline. LUNGS: Clear to auscultation bilaterally, no wheezes, rales or rhonchi, no respiratory distress. HEART: Regular rate and rhythm, no murmurs, gallops, rubs. ABDOMEN: Soft, nontender, nondistended, bowel sounds present in all 4 quadrants. EXTREMITIES: Moves all 4 extremities spontaneously, no edema, radial and dorsalis pedis pulses 2/4 bilaterally. No cyanosis. NEUROLOGICAL: Alert and oriented x3, normal speech, no facial droop, sensation intact. PSYCH: Normal mood, normal affect. SKIN: Skin underneath the left breast does have some darkening and discoloration, there is no breakdown, there is minimal erythema. It is concerning for possible early fungal infection. Course - Re-evaluation Re-evalutation: 11/23/19 00:09 Discussed with patient the importance of telling Dr. Fernández about this additional episode. Discussed with patient the importance of following up with a neurologist. I have started the patient on Keppra as an antiepileptic from he re. Discharged home. No indication for having a CT scan as the patient has had 2 other seizure-like episodes in the past, there is nothing new about this 1 and she has a completely normal neurologic exam at this time. CBC unremarkable, CMP has slightly low potassium at 3.2, otherwise unremarkable, urinalysis unremarkable, drug screen and alcohol negative. - Vital Signs Vital signs: Temp Pulse Resp BP Pulse Ox 99.7 F 20 139/109 H 91 L 11/22/19 21:40 11/22/19 23:32 11/22/19 23:32 11/22/19 23:32 - Laboratory Result Diagrams: 11/22/19 22:02 11/22/19 22:02 Laboratory results interpreted by me: 11/22/19 11/22/19 22:02 22:02 RDW 15.0 H [place] % (Auto) 14.6 H Potassium 3.2 L Glucose 111 H - EKG Interpretation by Me Additional EKG results interpreted by me: 11/23/19 00:11 EKG shows sinus tachycardia at a rate of 110, interventricular conduction delay, left axis deviation, no ST segment elevations or depressions, there are T wave inversions in lead III per my interpretation. Discharge - Discharge Clinical Impression: Seizure Condition: Stable Disposition: HOME, SELF-CARE Additional Instructions: You appear to have had another seizure. You had 2 more episodes over the past year, 1 back in January and one in June time.. It is very important that you follow-up with a neurologist as an outpatient. You should have a neurologist from when you had a stroke but if not you may also call Dr. Matthews to arrange follow-up. You should also talk to Dr. Fernández, your primary care physician about following up with a neurologist. He may be able to arrange the referral faster. I have started you on Keppra 500 twice a day to try and prevent further seizures. Due to the fact that we think you had a seizure today you may not drive, swim unsupervised or do anything else that might be dangerous if you were to pass out during that activity. Prescriptions: Levetiracetam [Keppra 500 mg Tablet] 500 mg PO Q12 #60 tablet Referrals: LUIS FERNÁNDEZ MD [Primary Care Provider] - Follow up as needed
[2019-11-23] MEDS ORDERED: LEVETIRACETAM 500 MG TABLET PO ONE (00:14)
[2019-11-23 01:03] VITALS: BP 142/107
--- NOTE | 2019-11-23 08:42 | EKG REPORT ---
SEVERITY:- ABNORMAL ECG - SINUS TACHYCARDIA PROBABLE LEFT ATRIAL ABNORMALITY BORDERLINE LEFT AXIS DEVIATION BORDERLINE T ABNORMALITIES, INFERIOR LEADS : Confirmed by: Soo Abdalla MD 23-Nov-2019 08:42:20
== END 2019-11-23 01:03 | disposition home or self-care (01) ==
LOC: ER 21:30
DX: R56.9 Unspecified convulsions (principal); R41.82 Altered mental status, unspecified; R51 Headache; F17.200 Nicotine dependence, unspecified, uncomplicated; I10 Essential (primary) hypertension; Z91.030 Bee allergy status; Z91.013 Allergy to seafood; Z88.6 Allergy status to analgesic agent
CPT/HCPCS: 36415; 80053; 80307; 81001; 83735; 85025; 93005; 93010; 99285

== ENCOUNTER 2020-04-10 19:47 | Inpatient (IN) | payer BC, MEDICAID ==
[2020-04-10] MEDS ORDERED: HYDROCODONE/ACETAMINOPHEN 5-325 MG TABLET PO ONE (20:58)
--- NOTE | 2020-04-10 21:05 | ER Document Report ---
ED Medical Screen (RME) - General Chief Complaint: Hand Swelling Stated Complaint: SWOLLEN FINGER Time Seen by Provider: 04/10/20 20:52 Primary Care Provider: LUIS FERNÁNDEZ MD [Primary Care Provider] - Follow up as needed Mode of Arrival: Ambulatory Information source: Patient Notes: 55-year-old female presents to ED for complaint of pain and swelling to the right middle finger for more than a week. She does have a paronychia but now her whole finger is red swollen will not bend at the PIP or DIP joint. She states it gradually got more more painful until the last couple days she has not been able to sleep or do anything with that hand due to the pain. She states she does bite her nails. I have ordered blood and x-ray of the finger. I have greeted and performed a rapid initial assessment of this patient. A comprehensive ED assessment and evaluation of the patient, analysis of test results and completion of medical decision making process will be conducted by an additional ED providers. TRAVEL OUTSIDE OF THE [place] IN LAST 30 DAYS: No - Related Data Allergies/Adverse Reactions: shellfish derived Allergy (Verified 04/10/20 20:50) bee sting Allergy (Uncoded 04/10/20 20:50) Home Medications: keppra, asa, hctz, oxybutynin, cetirizine, pravastatin Past Medical History - Social History Chew tobacco use (# tins/day): No Frequency of alcohol use: None Drug Abuse: None - Past Medical History Cardiac Medical History: Reports: Hx Hypercholesterolemia, Hx Hypertension Neurological Medical History: Reports: Hx Seizures Renal/ Medical History: Denies: Hx Peritoneal Dialysis Past Surgical History: Reports: Hx Hysterectomy, Hx Orthopedic Surgery - lt knee, Other - unknown Physical Exam - Vital signs Vitals: Temp Pulse Resp BP Pulse Ox 98.6 F 96 20 130/92 H 95 04/10/20 20:24 04/10/20 20:24 04/10/20 20:24 04/10/20 20:24 04/10/20 20:24 Course - Vital Signs Vital signs: Temp Pulse Resp BP Pulse Ox 98.6 F 96 20 130/92 H 95 04/10/20 20:24 04/10/20 20:24 04/10/20 20:24 04/10/20 20:24 04/10/20 20:24 Doctor's Discharge - Discharge Referrals: LUIS FERNÁNDEZ MD [Primary Care Provider] - Follow up as needed
[2020-04-10 21:37] LABS: ABSOLUTE EOSINOPHILS # (AUTO) 0.1 10^3/uL (0.0-0.6); ABSOLUTE LYMPHOCYTES (AUTO) 1.6 10^3/uL (0.5-4.7); ABSOLUTE MONOCYTES (AUTO) 0.9 10^3/uL (0.1-1.4); ABSOLUTE NEUT (AUTO) 3.1 10^3/uL (1.7-8.2); BASOPHILS % (AUTO) 0.4 % (0-2); EOSINOPHILS % (AUTO) 1.2 % (0-6); HEMATOCRIT 41.8 % (36.0-47.0); HEMOGLOBIN 13.9 g/dL (12.0-15.5); LYMPHOCYTES % (AUTO) 27.5 % (13-45); MEAN CORPUSCULAR HEMOGLOBIN 26.8 pg (27.0-33.4); MEAN CORPUSCULAR HGB CONC 33.2 g/dL (32.0-36.0); MEAN CORPUSCULAR VOLUME 81 fl (80-97); MONOCYTES % (AUTO) 15.6 % (3-13); PLATELET COUNT 199 10^3/uL (150-450); RED BLOOD COUNT 5.17 10^6/uL (3.72-5.28); RED CELL DISTRIBUTION WIDTH 14.8 % (11.5-14.0); SEGMENTED NEUTROPHILS % (AUTO) 55.3 % (42-78); TOTAL CELLS COUNTED % (AUTO) 100 %; WHITE BLOOD COUNT 5.7 10^3/uL (4.0-10.5)
[2020-04-10 21:50] LABS: ALKALINE PHOSPHATASE 60 U/L (38-126); ANION GAP 7 (5-19); ASPARTATE AMINO TRANSFERASE 23 U/L (14-36); BILIRUBIN,DIRECT 0.3 mg/dL (0.0-0.4); BILIRUBIN,TOTAL 0.4 mg/dL (0.2-1.3); BLOOD UREA NITROGEN 12 mg/dL (7-20); CALCIUM 9.4 mg/dL (8.4-10.2); CARBON DIOXIDE 30 mmol/L (22-30); CHLORIDE 104 mmol/L (98-107); GLUCOSE 119 mg/dL (75-110); POTASSIUM 3.5 mmol/L (3.6-5.0)
--- NOTE | 2020-04-10 22:12 | RADIOLOGY REPORT (SQ) ---
EXAM DESCRIPTION: X-ray right finger; 3 views CLINICAL HISTORY: 55 years Female, middle finger pain swelling COMPARISON: None. FINDINGS: Negative for acute fracture, dislocation, or radiopaque foreign body. There is diffuse soft tissue swelling. IMPRESSION: No acute osseous findings. Diffuse soft tissue swelling.
--- NOTE | 2020-04-11 05:13 | ER Document Report ---
ED Extremity Problem, Upper - General Chief Complaint: Hand Swelling Stated Complaint: SWOLLEN FINGER Time Seen by Provider: 04/11/20 05:11 Primary Care Provider: LUIS FERNÁNDEZ MD [Primary Care Provider] - Follow up as needed Mode of Arrival: Ambulatory Notes: Patient is a 55-year-old female who comes emergency department for chief complaint of pain and swelling to the right middle finger. This started over a week ago. She states initially it started out as a infection next to the finge rnail but now her whole finger is red, swollen, and she cannot bend or fully straighten the finger without severe pain. She states last night she cannot sleep because of the pain. She admits that she bites her fingers and fingernails. Her tetanus is reportedly up-to-date within 5 years. She denies a history of diabetes. Past medical history of hypertension, hyperlipidemia, seizure disorder on Keppra. TRAVEL OUTSIDE OF THE [place] IN LAST 30 DAYS: No - Related Data Allergies/Adverse Reactions: shellfish derived Allergy (Verified 04/10/20 20:50) bee sting Allergy (Uncoded 04/10/20 20:50) Home Medications: keppra, asa, hctz, oxybutynin, cetirizine, pravastatin Past Medical History - General Information source: Patient - Social History Smoking Status: Current Every Day Smoker Chew tobacco use (# tins/day): No Frequency of alcohol use: None Drug Abuse: None Lives with: Family Family History: Reviewed & Not Pertinent Patient has homicidal ideation: No - Past Medical History Cardiac Medical History: Reports: Hx Hypercholesterolemia, Hx Hypertension Neurological Medical History: Reports: Hx Seizures Renal/ Medical History: Denies: Hx Peritoneal Dialysis Past Surgical History: Reports: Hx Hysterectomy, Hx Orthopedic Surgery - lt knee, Other - unknown Review of Systems - Review of Systems Constitutional: No symptoms reported EENT: No symptoms reported Cardiovascular: No symptoms reported Respiratory: No symptoms reported Gastrointestinal: No symptoms reported Genitourinary: No symptoms reported Female Genitourinary: No symptoms reported Musculoskeletal: See HPI Skin: See HPI Hematologic/Lymphatic: No symptoms reported Neurological/Psychological: No symptoms reported Physical Exam - Vital signs Vitals: Temp Pulse Resp BP Pulse Ox 98.6 F 96 20 130/92 H 95 04/10/20 20:24 04/10/20 20:24 04/10/20 20:24 04/10/20 20:24 04/10/20 20:24 - Notes Notes: GENERAL: Alert, interacts well. Patient appears to be in some pain, holding her right hand close to her body. HEAD: Normocephalic, atraumatic. EYES: Pupils equal, round, and reactive to light. Extraocular movements intact. ENT: Oral mucosa moist, tongue midline. Oropharynx unremarkable. Airway patent. NECK: Full range of motion. Supple. Trachea midline. No lymphadenopathy. LUNGS: Clear to auscultation bilaterally, no wheezes, rales, or rhonchi. No respiratory distress. Non-tender chest wall. HEART: Regular rate and rhythm. No murmur ABDOMEN: Soft, non-tender. Non-distended. EXTREMITIES: Significant swelling of the right middle finger with swelling of the finger pad and erythema suggesting felon, erythema and severe soft tissue swelling of the finger up past the PIP joint. Very notable tenderness with attempts to flex the finger, patient can extend the finger. Capillary refill and sensation are intact. Extremity exam otherwise unremarkable. BACK: no cervical, thoracic, lumbar midline tenderness. No saddle anesthesia, normal distal neurovascular exam. Moves all extremities in full range of motion. NEUROLOGICAL: Alert and oriented x3. Normal speech. Cranial nerves II through XII grossly intact. SKIN: Warm, dry, normal turgor. No rashes or lesions noted. Course - Re-evaluation Re-evalutation: Patient has a very swollen right middle finger with appearance of felon, paronychia, and secondary complicated swelling of the finger with limited ability to flex the finger without significant pain. Patient also has suddenly developed an opening spontaneously over the dorsal aspect just above the nail that is draining some purulent material. CBC unremarkable, chemistry unremarkable, patient is afebrile, she is not a diabetic, she reports her tetanus is up-to-date. I called and spoke with Dr. Arthur. Dr. Arthur will come evaluate the patient, he requests incision and drainage set up, 2% lidocaine. Updated patient, she states full agreement with plan. Patient also medicated for pain and nausea. 04/11/20 Dr. Arthur evaluate the patient, he did drain the paronychia and felon but because of the extensive swelling and pain all the way up into the hand he is admitting the patient to his service. - Vital Signs Vital signs: Temp Pulse Resp BP Pulse Ox 98.2 F 93 20 118/83 96 04/11/20 02:25 04/11/20 02:25 04/10/20 20:24 04/11/20 02:25 04/11/20 02:25 - Laboratory Result Diagrams: 04/10/20 21:15 04/10/20 21:15 Laboratory results interpreted by me: 04/10/20 04/10/20 21:15 21:15 MCH 26.8 L RDW 14.8 H [place] % (Auto) 15.6 H Potassium 3.5 L Glucose 119 H Discharge - Discharge Clinical Impression: Finger infection, Felon of finger, Swollen finger, Acute bacterial paronychia Condition: Stable Disposition: ADMITTED OBSERVATION Admitting Provider: Dr. Arthur - Orthopedics Unit Admitted: Surgical Floor Referrals: LUIS FERNÁNDEZ MD [Primary Care Provider] - Follow up as needed
[2020-04-11] MEDS ORDERED: ONDANSETRON HCL INJ/PF 4 MG/2 ML SDV IV ONE (05:18)
[2020-04-11] MEDS ORDERED: MORPHINE SULFATE 10 MG/ML INJ IV ONE (05:18)
[2020-04-11] MEDS ORDERED: LIDOCAINE 2% INJ (20 MG/ML) 20 ML MDV INJ ONE (05:19)
[2020-04-11] MEDS ORDERED: CEFAZOLIN 2 GM/D5W RTU 2 GM/50 ML RTUPB IV ONE (07:45)
[2020-04-11] MEDS ORDERED: ONDANSETRON HCL INJ/PF 4 MG/2 ML SDV IV PRN ×2 (08:10→09:00)
--- NOTE | 2020-04-11 08:31 | PDOC H&P ---
History of Present Illness Admission Date/PCP: LUIS FERNÁNDEZ MD History of Present Illness: TANISHA MOTT is a 55 year old female who presents with 1 week swelling of the right middle finger. Physical exam versus temperature distal fingernails. Initially she had a potential paronychia that she reported increased and erythema and swelling up to the MCP joint. She now cannot sleep due to the pain or range her finger because of swelling and pain. She has been evaluated for tetanus and given appropriate treatment in the emergency department. Pain is 5 out of 10, burning, worse with any attempted motion, improved with rest and pain medication. She does report some intermittent drainage from the paronychia. Past Medical History Cardiac Medical History: Reports: Hyperlipidema, Hypertension Neurological Medical History: Reports: Seizures Past Surgical History Past Surgical History: Reports: Hysterectomy, Orthopedic Surgery - lt knee, Other - unknown Social History Lives with: Family Smoking Status: Current Every Day Smoker Electronic Cigarette use?: No Frequency of Alcohol Use: None - Unknown Hx Recreational Drug Use: No - Unknown at this time Hx Prescription Drug Abuse: No Family History Family History: Reviewed & Not Pertinent Parental Family History Reviewed: No Children Family History Reviewed: NA Sibling(s) Family History Reviewed.: NA Medication/Allergy Home Medications: Aspirin [Ecotrin 325 mg EC Tablet] 325 mg PO DAILY 04/11/20 Hydrochlorothiazide 12.5 mg PO DAILY 04/11/20 Levetiracetam [Keppra 500 mg Tablet] 1,000 mg PO Q12 04/11/20 Oxybutynin Chloride [Ditropan Xl] 10 mg PO DAILY 04/11/20 Pravastatin Sodium 40 mg PO DAILY 04/11/20 Allergies/Adverse Reactions: shellfish derived Allergy (Verified 04/10/20 20:50) bee sting Allergy (Uncoded 04/10/20 20:50) Review of Systems Review of Systems: Constitutional: ABSENT: anorexia, chills, night sweats Cardiovascular: ABSENT: chest pain Respiratory: ABSENT: dyspnea Gastrointestinal: ABSENT: vomiting Genitourinary: ABSENT: dysuria Integumentary: ABSENT: rash Neurological: ABSENT: confusion, memory loss, numbness Psychiatric: ABSENT: hallucinations Hematologic/Lymphatic: ABSENT: easy bleeding Physical Exam Vital Signs: Temp Pulse Resp BP Pulse Ox 98.2 F 93 20 118/83 96 04/11/20 02:25 04/11/20 02:25 04/10/20 20:24 04/11/20 02:25 04/11/20 02:25 Intake & Output 04/10/20 04/11/20 04/12/20 06:59 06:59 06:59 Weight 110.8 kg Physical Exam: General appearance: PRESENT: no acute distress, cooperative, obese Head exam: PRESENT: atraumatic, normocephalic Eye exam: PRESENT: EOMI Ear exam: PRESENT: normal external ear exam Mouth exam: PRESENT: neck supple Neck exam: ABSENT: tracheal deviation Respiratory exam: PRESENT: symmetrical, unlabored. ABSENT: accessory muscle use, wheezes Pulses: PRESENT: normal radial pulses, normal dorsalis pedis pulse Vascular exam: PRESENT: normal capillary refill GI/Abdominal exam: ABSENT: distended, firm Extremities exam: PRESENT: full ROM of bilateral shoulders, elbows wrists, knees, hips and ankles without pain Musculoskeletal exam: PRESENT: full ROM, normal inspection of all 4 extremities aside from that noted below. Neurological exam: PRESENT: alert, awake, oriented to person, oriented to place, oriented to time Psychiatric exam: PRESENT: appropriate affect. ABSENT: agitated Focused psych exam: ABSENT: catatonic Skin exam: PRESENT: intact. ABSENT: dry All as above aside from that noted in the HPI and the following: Right upper extremity sensation grossly intact to radial median and ulnar nerve. upper extremity motor function grossly intact to radian median ulnar nerve AIN and PIN Pulses 2+, capillary refill less than 2 seconds No deformity noted full range of motion of the elbow shoulder wrist and fingers without pain Compartments soft, no tenderness to palpation skin intact Right third finger has tenderness and swelling up to the MCP joint. There is no proximal tenderness in the palm or forearm. There is no proximal erythema tracking from the MCP joint. There is tenderness to the proximal and middle phalanx with associated swelling. There is redness, and a nidus of abscess at the paronychia. This wraps around the germinal matrix. She has tenderness to attempted range of motion. There is some scant drainage at this time. Results Laboratory Results: 04/10/20 21:15 04/10/20 21:15 04/10/20 04/10/20 21:15 21:15 WBC 5.7 RBC 5.17 Hgb 13.9 Hct 41.8 MCV 81 MCH 26.8 L MCHC 33.2 RDW 14.8 H Plt Count 199 Seg Neutrophils % 55.3 Sodium 141.1 Potassium 3.5 L Chloride 104 Carbon Dioxide 30 Anion Gap 7 BUN 12 Creatinine 0.94 Est GFR ( Amer) > 60 Glucose 119 H Calcium 9.4 Total Bilirubin 0.4 AST 23 Alkaline Phosphatase 60 Total Protein 8.0 Albumin 4.0 Impressions: Finger X-Ray 04/10/20 21:01 IMPRESSION: No acute osseous findings. Diffuse soft tissue swelling. Assessment & Plan - Diagnosis (1) Acute bacterial paronychia Is this a current diagnosis for this admission?: Yes (2) Felon of finger Is this a current diagnosis for this admission?: Yes (3) Finger infection Is this a current diagnosis for this admission?: Yes Plan: Patient has a paronychia that appears to have become complicated to the extent of a felon and potentially flexor tenosynovitis. Discussed risks benefits and treatment alternatives with the patient who had all questions answered and ended up providing informed verbal consent for procedural I&D in the emergency department. Under sterile conditions a digital block was provided. After adequate analgesia the right upper extremity was prepped and draped in standard sterile fashion. [place] drain was placed proximally as a tourniquet. I was able to bluntly open the dorsum of the paronychia with a hemostat which immediately led to purulent drainage. This was cultured and sent to microbiology. Following this I was able to track the infection volarly into the volar finger pad. All purulent material was expressed. The nailbed was removed with a [place] forcep. The [place] wound was then extended both proximally and distally with a scalpel to achieve adequate exposure for thorough exploration and removal of any necrotic tissue. I was also able to potentially express some purulence with a milking maneuver starting at the proximal phalanx. This gives me some concern that there may be communication along the tendon sheath. After adequate decompression thorough irrigation was performed. Following this a Celio drain was placed into the wound and the wound was placed in a sterile dressing. The patient tolerated the procedure well without complication. The Celio tourniquet was then removed. Due to the concern for potential tendon sheath involvement, I am going to place the patient in the hospital overnight on IV antibiotics and monitor for the potential need for a open irrigation and debridement tomorrow pending her response. -Until that time she is to have twice daily soaks, the patient has a current Celio drain that is loosely placed and will likely fall out with soaks which is expected. -will start the patient on vancomycin and Zosyn. -Keep n.p.o. at midnight tonight - Time Anticipated Discharge Disposition: Home, Self Care Anticipated Discharge Timeframe: within 72 hours
[2020-04-11] MEDS: ACETAMINOPHEN 325 MG TABLET PO SCH ×3 (09:10→21:40)
[2020-04-11] MEDS ORDERED: (PENDING PHARMACY ID) (Pravastatin Sodium [Pravastatin Sodium] 40 MG) PO SCH (10:00)
[2020-04-11] MEDS ORDERED: OXYBUTYNIN CHLORIDE 5 MG TABLET PO SCH (10:00)
[2020-04-11] MEDS ORDERED: VANCOMYCIN HCL INJ 1000 MG VIAL IV SCH (10:00)
[2020-04-11] MEDS: LEVETIRACETAM 500 MG TABLET PO SCH ×2 (11:03→21:40)
[2020-04-11] MEDS: DOCUSATE SODIUM 100 MG CAPSULE PO SCH (11:03)
[2020-04-11] MEDS: PIPERACILLIN SODIUM/TAZOBACTAM 3.375 GM in NORMAL SALINE 100 ML IV SCH ×2 (11:05→18:10)
[2020-04-11] MEDS: HYDROCHLOROTHIAZIDE 12.5 MG TABLET PO SCH (11:06)
[2020-04-11] MEDS: ASPIRIN 325 MG TABLET, ENT COATED PO SCH (11:07)
[2020-04-11] MEDS: OXYCODONE HCL IR 5 MG TABLET PO PRN (11:12)
[2020-04-11] MEDS ORDERED: PIPERACILLIN/TAZOBACTAM 3.375 GM VIAL IV SCH (12:00)
[2020-04-11] MEDS: VANCOMYCIN HCL 1,250 MG in DEXTROSE 5%-WATER 250 ML IV SCH ×2 (12:58→21:40)
--- NOTE | 2020-04-11 14:36 | PDOC CONSULTATION ---
Consultation Consult Date: 04/11/20 Attending physician:: STACY REEDER JR Provider Consulted: LUIS FERNÁNDEZ Consult reason:: Medical management History of Present Illness Admission Date/PCP: 04/11/20 08:42 LUIS FERNÁNDEZ MD Patient complains of: Right middle finger swelling History of Present Illness: TANISHA MOTT is a 55 year old female This is a 55-year-old female's with a history of the hypertensions mixed hyperlipidemia history of the cerebrovascular accident and history of the seizures disorder present in the emergency department with the 1 week history of the right middle finger swelling and increasing the pain Initial evaluations patient with significant swelling in the past patient appropriately treated in the ER and a consult the orthopedic and admitting the patient's for the right middle finger infections and paronychia Patient have a history of the seizures disorder currently taking the Keppra denied any other symptoms Patient's otherwise recent blood work in office was all stable denied any chest pain no short of breath Patient is currently see a local neurology and have a history of the sleep apnea but not wearing the sleep machines Patient is denied any heart history is in the past Past Medical History Cardiac Medical History: Reports: Hyperlipidema, Hypertension Pulmonary Medical History: Reports: Sleep Apnea Neurological Medical History: Reports: Ischemic CVA, Seizures Endocrine History Note: Impaired fasting glucose last A1c was 5.8 Psychiatric Medical History: Denies: Depression Past Surgical History Past Surgical History: Reports: Hysterectomy, Orthopedic Surgery - lt knee, Other - unknown Social History Lives with: Family Smoking Status: Current Every Day Smoker Electronic Cigarette use?: No Frequency of Alcohol Use: None - Unknown Hx Recreational Drug Use: No - Unknown at this time Hx Prescription Drug Abuse: No - Advance Directive Resuscitation Status: Full Code Family History Family History: Reviewed & Not Pertinent Parental Family History Reviewed: Yes Children Family History Reviewed: Yes Sibling(s) Family History Reviewed.: Yes Medication/Allergy Home Medications: Aspirin [Ecotrin 325 mg EC Tablet] 325 mg PO DAILY 04/11/20 Cetirizine HCl [Zyrtec 10 mg Tablet] 10 mg PO DAILY 04/11/20 Hydrochlorothiazide 12.5 mg PO DAILY 04/11/20 Levetiracetam [Keppra 500 mg Tablet] 1,000 mg PO Q12 04/11/20 Oxybutynin Chloride [Ditropan Xl] 10 mg PO DAILY 04/11/20 Pravastatin Sodium 40 mg PO DAILY 04/11/20 Allergies/Adverse Reactions: shellfish derived Allergy (Verified 04/10/20 20:50) bee sting Allergy (Uncoded 04/10/20 20:50) Review of Systems Constitutional: ABSENT: chills, fever(s), headache(s), weight gain, weight loss Eyes: ABSENT: visual disturbances Ears: ABSENT: hearing changes Cardiovascular: ABSENT: chest pain, dyspnea on exertion, edema, orthropnea, palpitations Respiratory: ABSENT: cough, hemoptysis Gastrointestinal: ABSENT: abdominal pain, constipation, diarrhea, hematemesis, hematochezia, nausea, vomiting Genitourinary: ABSENT: dysuria, hematuria Musculoskeletal: ABSENT: joint swelling Integumentary: ABSENT: rash, wounds Neurological: ABSENT: abnormal gait, abnormal speech, confusion, dizziness, focal weakness, syncope Psychiatric: ABSENT: anxiety, depression, homidical ideation, suicidal ideation Endocrine: ABSENT: cold intolerance, heat intolerance, menstrual abnormalities, polydipsia, polyuria Hematologic/Lymphatic: ABSENT: easy bleeding, easy bruising, lymphadenopathy Physical Exam Vital Signs: Temp Pulse Resp BP Pulse Ox 98.0 F 93 16 126/95 H 99 04/11/20 09:55 04/11/20 09:55 04/11/20 09:55 04/11/20 09:55 04/11/20 09:55 Intake & Output 04/10/20 04/11/20 04/12/20 06:59 06:59 06:59 Intake Total 50 Balance 50 Weight 110.8 kg General appearance: PRESENT: no acute distress, well-developed, well-nourished Head exam: PRESENT: atraumatic, normocephalic Eye exam: PRESENT: conjunctiva pink, EOMI, PERRLA. ABSENT: scleral icterus Ear exam: PRESENT: normal external ear exam Mouth exam: PRESENT: moist, tongue midline Neck exam: PRESENT: full ROM. ABSENT: carotid bruit, JVD, lymphadenopathy, thyromegaly Respiratory exam: PRESENT: clear to auscultation doe Cardiovascular exam: PRESENT: RRR. ABSENT: diastolic murmur, rubs, systolic murmur Vascular exam: PRESENT: normal capillary refill GI/Abdominal exam: PRESENT: normal bowel sounds, soft. ABSENT: distended, g uarding, mass, organolmegaly, rebound, tenderness Rectal exam: PRESENT: deferred Additional comments: Right middle finger the dressing is intact Neurological exam: PRESENT: alert, awake, oriented to person, oriented to place, oriented to time, oriented to situation. ABSENT: motor sensory deficit Psychiatric exam: PRESENT: appropriate affect, normal mood. ABSENT: homicidal ideation, suicidal ideation Skin exam: PRESENT: dry, intact, warm. ABSENT: cyanosis, rash Results Laboratory Results: 04/10/20 21:15 04/10/20 21:15 04/10/20 04/10/20 21:15 21:15 WBC 5.7 RBC 5.17 Hgb 13.9 Hct 41.8 MCV 81 MCH 26.8 L MCHC 33.2 RDW 14.8 H Plt Count 199 Seg Neutrophils % 55.3 Sodium 141.1 Potassium 3.5 L Chloride 104 Carbon Dioxide 30 Anion Gap 7 BUN 12 Creatinine 0.94 Est GFR ( Amer) > 60 Glucose 119 H Calcium 9.4 Total Bilirubin 0.4 AST 23 Alkaline Phosphatase 60 Total Protein 8.0 Albumin 4.0 Impressions: Finger X-Ray 04/10/20 21:01 IMPRESSION: No acute osseous findings. Diffuse soft tissue swelling. 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) Is this a current diagnosis for this admission?: No Plan: Currently on aspirin and a statin all stable (6) Prediabetes Is this a current diagnosis for this admission?: Yes Plan: Patient's recent A1c is less than 6 (7) Seizure disorder Is this a current diagnosis for this admission?: Yes Plan: Continues the Keppra and seizures precautions - Time Time Spent: 30 to 50 Minutes Medications reviewed and adjusted accordingly: Yes Anticipated discharge: Home Anticipated DC Timeframe: Other - Inpatient Certification Based on my medical assessment, after consideration of the patient's comorbidities, presenting symptoms, or acuity I expect that the services needed warrant INPATIENT care.: Yes I certify that my determination is in accordance with my understanding of Medicare's requirements for reasonable and necessary INPATIENT services [42 CFR 412.3e].: Yes Medical Necessity: Need Close Monitoring Due to Risk of Patient Decompensation, Need for IV Antibiotics, Need for Surgery Post Hospital Care: D/C Informatics Physician Documentation - Plan Summary Plan Summary: Continues the IV antibiotic continues to p.o. current medications Discussed with the nursing staff no other concern Patient is currently medically stable
[2020-04-11] MEDS: KETOROLAC TROMETHAMINE INJ/PF 30 MG/1 ML SDV IV SCH ×2 (14:58→21:40)
[2020-04-11] MEDS: OXYBUTYNIN CHLORIDE 5 MG TABLET PO SCH ×2 (14:59→22:01)
--- NOTE | 2020-04-11 15:26 | Progress Note ---
Provider Note Provider Note: [facility] Telephone Advice Consultation Chart reviewed. Patient is a 55-year-old woman with history of seizure disorder on Keppra, hypertension, hyperlipidemia, who was evaluated in the ED for paronychia and cellulitis of the hand. Patient presented with hand swelling, redness pain that started on her right middle finger and extended to her hand. She was unable to extend the hand without significant pain. She bites her fingernails regularly. She was evaluated by orthopedics in the ED. I&D was performed and there was concern for tendon sheath involvement, extension of the infection up to the mcp joint. She was started on vancomycin and zosyn awaiting cultures. She might need further debridement depending on antibiotics and re evaluation tomorrow. ID consulted for recommendations. Allergies: shellfish derived Allergy (Verified 04/10/20 20:50) bee sting Allergy (Uncoded 04/10/20 20:50) Medications: Aspirin [Ecotrin 325 mg EC Tablet] 325 mg PO DAILY 04/11/20 Cetirizine HCl [Zyrtec 10 mg Tablet] 10 mg PO DAILY 04/11/20 Hydrochlorothiazide 12.5 mg PO DAILY 04/11/20 Levetiracetam [Keppra 500 mg Tablet] 1,000 mg PO Q12 04/11/20 Oxybutynin Chloride [Ditropan Xl] 10 mg PO DAILY 04/11/20 Pravastatin Sodium 40 mg PO DAILY 04/11/20 Vital Signs: Temp Pulse Resp BP Pulse Ox 98.0 F 93 16 126/95 H 99 04/11/20 10:00 04/11/20 09:55 04/11/20 09:55 04/11/20 09:55 04/11/20 09:55 Intake & Output 04/10/20 04/11/20 04/12/20 06:59 06:59 06:59 Intake Total 50 Balance 50 Weight 110.8 kg Weight/Height Weight 110.8 kg Height 5 ft 11 in Laboratories: 04/10/20 21:15 04/10/20 21:15 MCV 81 fl (80-97) 04/10/20 21:15 MCH 26.8 pg (27.0-33.4) L 04/10/20 21:15 MCHC 33.2 g/dL (32.0-36.0) 08/26/20 21:15 RDW 14.8 % (11.5-14.0) H 04/10/20 21:15 Seg Neutrophils % 55.3 % (42-78) 04/10/20 21:15 Chloride 104 mmol/L (98-107) 04/10/20 21:15 Carbon Dioxide 30 mmol/L (22-30) 04/10/20 21:15 Anion Gap 7 (5-19) 04/10/20 21:15 Est GFR ( Amer) > 60 (>60) 04/10/20 21:15 Glucose 119 mg/dL (75-110) H 04/10/20 21:15 Calcium 9.4 mg/dL (8.4-10.2) 04/10/20 21:15 Total Bilirubin 0.4 mg/dL (0.2-1.3) 04/10/20 21:15 AST 23 U/L (14-36) 04/10/20 21:15 Alkaline Phosphatase 60 U/L (38-126) 04/10/20 21:15 Total Protein 8.0 g/dL (6.3-8.2) 04/10/20 21:15 Albumin 4.0 g/dL (3.5-5.0) 04/10/20 21:15 Microbiology: Blood culture: 04/11 In process Tissue culture: 04/11 In process Radiology: Finger X-Ray 04/10/20 21:01 IMPRESSION: No acute osseous findings. Diffuse soft tissue swelling. Assessment and Recommendations: Patient evaluated for paronychia, felon and hand cellulitis. She is s/p I&D with concerns for tenosynovitis. She is on vancomycin and zosyn awaiting for cultures. She might need further procedures for source control. Unknown MRSA status, but it is reasonable con continue broad spectrum antibiotics with vancomycin and zosyn until cultures are finalized. She bites her fingernails, oral laura like Streptococcus, Finegoldia may be present. If renal function wo rsens with vancomycin, linezolid may be an option. Will follow cultures to give final recommendations. Brittanie Pedersen MD [facility] [phone]
[2020-04-11] MEDS: ATORVASTATIN CALCIUM 20 MG TABLET PO SCH (21:40)
[2020-04-12] MEDS: PIPERACILLIN SODIUM/TAZOBACTAM 3.375 GM in NORMAL SALINE 100 ML IV SCH ×5 (00:08→23:58)
[2020-04-12] MEDS: NORMAL SALINE 1000 ML 1,000 ML IV PRN ×2 (01:07→21:40)
[2020-04-12 05:18] LABS: ABSOLUTE EOSINOPHILS # (AUTO) 0.1 10^3/uL (0.0-0.6); ABSOLUTE LYMPHOCYTES (AUTO) 1.2 10^3/uL (0.5-4.7); ABSOLUTE MONOCYTES (AUTO) 0.6 10^3/uL (0.1-1.4); ABSOLUTE NEUT (AUTO) 2.2 10^3/uL (1.7-8.2); BASOPHILS % (AUTO) 0.4 % (0-2); EOSINOPHILS % (AUTO) 1.5 % (0-6); HEMATOCRIT 38.1 % (36.0-47.0); HEMOGLOBIN 12.5 g/dL (12.0-15.5); LYMPHOCYTES % (AUTO) 30.2 % (13-45); MEAN CORPUSCULAR HEMOGLOBIN 26.4 pg (27.0-33.4); MEAN CORPUSCULAR HGB CONC 32.8 g/dL (32.0-36.0); MEAN CORPUSCULAR VOLUME 81 fl (80-97); MONOCYTES % (AUTO) 14.7 % (3-13); PLATELET COUNT 168 10^3/uL (150-450); RED BLOOD COUNT 4.73 10^6/uL (3.72-5.28); RED CELL DISTRIBUTION WIDTH 14.4 % (11.5-14.0); SEGMENTED NEUTROPHILS % (AUTO) 53.2 % (42-78); TOTAL CELLS COUNTED % (AUTO) 100 %; WHITE BLOOD COUNT 4.1 10^3/uL (4.0-10.5)
[2020-04-12] MEDS: ACETAMINOPHEN 325 MG TABLET PO SCH ×3 (05:18→21:36)
[2020-04-12] MEDS: PANTOPRAZOLE SODIUM 20 MG TABLET.DR PO SCH (05:18)
[2020-04-12] MEDS: KETOROLAC TROMETHAMINE INJ/PF 30 MG/1 ML SDV IV SCH ×3 (05:27→21:37)
[2020-04-12 05:33] LABS: ANION GAP 8 (5-19); BLOOD UREA NITROGEN 10 mg/dL (7-20); CALCIUM 8.7 mg/dL (8.4-10.2); CARBON DIOXIDE 33 mmol/L (22-30); CHLORIDE 100 mmol/L (98-107); GLUCOSE 99 mg/dL (75-110); POTASSIUM 3.9 mmol/L (3.6-5.0)
--- NOTE | 2020-04-12 08:43 | PDOC PROGRESS REPORT ---
Subjective Progress Note for:: 04/12/20 Subjective:: Patient is currently doing well No chest pain no short of breath No fever No seizures activity Discussed with surgery wants to continues the antibiotic for another day Before decided to take him to surgery Reason For Visit: RIGHT 3RD FINGER INFECTION Physical Exam Vital Signs: Temp Pulse Resp BP Pulse Ox 98.1 F 75 16 86/59 L 97 04/12/20 07:34 04/12/20 07:34 04/12/20 07:34 04/12/20 07:34 04/12/20 07:34 Intake & Output 04/11/20 04/12/20 04/13/20 06:59 06:59 06:59 Intake Total 1210 Balance 1210 Weight 110.8 kg 110.8 kg General appearance: PRESENT: no acute distress, well-developed, well-nourished Head exam: PRESENT: atraumatic, normocephalic Eye exam: PRESENT: conjunctiva pink, EOMI, PERRLA. ABSENT: scleral icterus Ear exam: PRESENT: normal external ear exam Mouth exam: PRESENT: moist, tongue midline Neck exam: PRESENT: full ROM. ABSENT: carotid bruit, JVD, lymphadenopathy, thyromegaly Respiratory exam: PRESENT: clear to auscultation doe Cardiovascular exam: PRESENT: RRR. ABSENT: diastolic murmur, rubs, systolic murmur Pulses: PRESENT: normal dorsalis pedis pul, +2 pedal pulses bilateral Vascular exam: PRESENT: normal capillary refill GI/Abdominal exam: PRESENT: normal bowel sounds, soft. ABSENT: distended, guarding, mass, organolmegaly, rebound, tenderness Rectal exam: PRESENT: deferred Musculoskeletal exam: PRESENT: ambulatory Neurological exam: PRESENT: alert, awake, oriented to person, oriented to place, oriented to time, oriented to situation, CN II-XII grossly intact. ABSENT: motor sensory deficit Psychiatric exam: PRESENT: appropriate affect, normal mood. ABSENT: homicidal ideation, suicidal ideation Skin exam: PRESENT: dry, intact, warm. ABSENT: cyanosis, rash Results Laboratory Results: 04/12/20 04:18 04/12/20 04:18 04/12/20 04/12/20 04:18 04:18 WBC 4.1 RBC 4.73 Hgb 12.5 Hct 38.1 MCV 81 MCH 26.4 L MCHC 32.8 RDW 14.4 H Plt Count 168 Seg Neutrophils % 53.2 Sodium 140.6 Potassium 3.9 Chloride 100 Carbon Dioxide 33 H Anion Gap 8 BUN 10 Creatinine 0.91 Est GFR ( Amer) > 60 Glucose 99 Calcium 8.7 Impressions: Finger X-Ray 04/10/20 21:01 IMPRESSION: No acute osseous findings. Diffuse soft tissue swelling. 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) Is this a current diagnosis for this admission?: No (6) Prediabetes Is this a current diagnosis for this admission?: Yes (7) Seizure disorder Is this a current diagnosis for this admission?: Yes - Time Time Spent with patient: 15-24 minutes Level of Care: TELE Medications reviewed and adjusted accordingly: Yes Anticipated discharge: Home Anticipated DC Timeframe: Other - Plan Summary Plan Summary: Discussed with the surgery about the plan continues to current medications Discussed with the pharmacy MD regarding the follow-up with the vancomycin peak and trough and the dose Continues to current medications Reviewed the infectious disease consult
[2020-04-12] MEDS: ASPIRIN 325 MG TABLET, ENT COATED PO SCH (10:21)
[2020-04-12] MEDS: DOCUSATE SODIUM 100 MG CAPSULE PO SCH (10:21)
--- NOTE | 2020-04-12 11:13 | PDOC PROGRESS REPORT ---
Subjective Progress Note for:: 04/12/20 Subjective:: Patient reports improvement overnight. IMproved pain. Has not yet begun soaks. No interval fever Reason For Visit: RIGHT 3RD FINGER INFECTION Physical Exam Vital Signs: Temp Pulse Resp BP Pulse Ox 98.1 F 75 16 86/59 L 97 04/12/20 07:34 04/12/20 07:34 04/12/20 07:34 04/12/20 07:34 04/12/20 07:34 Intake & Output 04/11/20 04/12/20 04/13/20 06:59 06:59 06:59 Intake Total 1210 Balance 1210 Weight 110.8 kg 110.8 kg Physical Exam: NAD, AOx3, Obese RUE - NVI - Minimal Drainage - Dressing removed, no progression of infection but still has TTP along volar tendon sheath up to MCP joint. Results Laboratory Results: 04/12/20 04:18 04/12/20 04:18 04/12/20 04/12/20 04:18 04:18 WBC 4.1 RBC 4.73 Hgb 12.5 Hct 38.1 MCV 81 MCH 26.4 L MCHC 32.8 RDW 14.4 H Plt Count 168 Seg Neutrophils % 53.2 Sodium 140.6 Potassium 3.9 Chloride 100 Carbon Dioxide 33 H Anion Gap 8 BUN 10 Creatinine 0.91 Est GFR ( Amer) > 60 Glucose 99 Calcium 8.7 Impressions: Finger X-Ray 04/10/20 21:01 IMPRESSION: No acute osseous findings. Diffuse soft tissue swelling. Assessment & Plan - Diagnosis (1) Acute bacterial paronychia Is this a current diagnosis for this admission?: Yes (2) Felon of finger Is this a current diagnosis for this admission?: Yes Plan: Still concerned for a developing Tenosynovitis - Keep NPO for possible OR this afternoon - Continue current antibiotics - Will Consult ID for further recs - 3 times daily dakins soaks (3) Finger infection Is this a current diagnosis for this admission?: Yes - Time Time Spent with patient: Less than 15 minutes
--- NOTE | 2020-04-12 11:14 | EKG REPORT ---
SEVERITY:- BORDERLINE ECG - SINUS RHYTHM PROBABLE LEFT ATRIAL ABNORMALITY BORDERLINE LEFT AXIS DEVIATION : Confirmed by: Soo Abdalla MD 12-Apr-2020 11:13:21
[2020-04-12] MEDS: LEVETIRACETAM 500 MG TABLET PO SCH ×2 (11:24→21:36)
[2020-04-12] MEDS: VANCOMYCIN HCL 1,250 MG in DEXTROSE 5%-WATER 250 ML IV SCH ×2 (11:24→21:38)
[2020-04-12] MEDS: OXYBUTYNIN CHLORIDE 5 MG TABLET PO SCH ×2 (11:25→21:36)
[2020-04-12] MEDS: HYDROCHLOROTHIAZIDE 12.5 MG TABLET PO SCH (11:28)
[2020-04-12] MEDS ORDERED: SODIUM HYPOCHLORITE 0.25% SOLN 473 ML BOTTLE TP SCH (14:00)
[2020-04-12] MEDS: ATORVASTATIN CALCIUM 20 MG TABLET PO SCH (21:36)
[2020-04-13] MEDS: KETOROLAC TROMETHAMINE INJ/PF 30 MG/1 ML SDV IV SCH ×3 (05:11→21:38)
[2020-04-13] MEDS: PIPERACILLIN SODIUM/TAZOBACTAM 3.375 GM in NORMAL SALINE 100 ML IV SCH ×4 (05:11→23:29)
[2020-04-13] MEDS: ACETAMINOPHEN 325 MG TABLET PO SCH ×3 (05:12→21:38)
[2020-04-13] MEDS: PANTOPRAZOLE SODIUM 20 MG TABLET.DR PO SCH (05:13)
[2020-04-13 05:53] LABS: HEMOGLOBIN 12.2 g/dL (12.0-15.5)
[2020-04-13 06:01] LABS: HEMATOCRIT 36.8 % (36.0-47.0); MEAN CORPUSCULAR HEMOGLOBIN 26.6 pg (27.0-33.4); MEAN CORPUSCULAR HGB CONC 33.1 g/dL (32.0-36.0); MEAN CORPUSCULAR VOLUME 80 fl (80-97); PLATELET COUNT 162 10^3/uL (150-450); RED BLOOD COUNT 4.59 10^6/uL (3.72-5.28)
[2020-04-13 06:03] LABS: ANION GAP 7 (5-19); BLOOD UREA NITROGEN 13 mg/dL (7-20); CALCIUM 8.6 mg/dL (8.4-10.2); CARBON DIOXIDE 30 mmol/L (22-30); CHLORIDE 103 mmol/L (98-107); GLUCOSE 93 mg/dL (75-110); POTASSIUM 3.9 mmol/L (3.6-5.0)
[2020-04-13 07:08] LABS: ABSOLUTE LYMPHOCYTES# (MANUAL) 1.2 10^3/uL (0.5-4.7); ABSOLUTE MONOCYTES # (MANUAL) 0.5 10^3/uL (0.1-1.4); ANISOCYTOSIS SLIGHT; BASOPHILS % (MANUAL) 0 % (0-2); EOSINOPHILS % (MANUAL) 1 % (0-6); HYPOCHROMASIA SLIGHT; LYMPHOCYTES % (MANUAL) 41 % (13-45); MONOCYTES % (MANUAL) 18 % (3-13); PLATELET COMMENT ADEQUATE; SEGMENTED NEUTROPHILS % (MAN) 40 % (42-78); TOTAL CELLS COUNTED 100
[2020-04-13 07:09] LABS: BURR CELLS SLIGHT; SCHISTOCYTES SLIGHT
--- NOTE | 2020-04-13 08:24 | PDOC PROGRESS REPORT ---
Subjective Progress Note for:: 04/13/20 Subjective:: Patient doing well this morning but reports increasing pain in her finger. No other overnight events. No overnight fevers. Reason For Visit: RIGHT FINGER INFECTION Physical Exam Vital Signs: Temp Pulse Resp BP Pulse Ox 98.0 F 72 17 101/72 98 04/13/20 07:29 04/13/20 07:29 04/13/20 07:29 04/13/20 07:29 04/13/20 07:29 Intake & Output 04/12/20 04/13/20 04/14/20 06:59 06:59 06:59 Intake Total 1210 2560 Balance 1210 2560 Weight 110.8 kg 116.9 kg Physical Exam: NAD, AOx3, Obese RUE - NVI - Minimal Drainage - Dressing removed, no progression of infection but still has TTP along volar tendon sheath up to MCP joint. -Exquisitely tender with any attempted range of motion. Results Laboratory Results: 04/13/20 04:58 04/13/20 04:58 04/13/20 04/13/20 04:58 04:58 WBC 3.0 L RBC 4.59 Hgb 12.2 Hct 36.8 MCV 80 MCH 26.6 L MCHC 33.1 RDW 14.0 Plt Count 162 Seg Neutrophils % Not Reportable Sodium 140.0 Potassium 3.9 Chloride 103 Carbon Dioxide 30 Anion Gap 7 BUN 13 Creatinine 0.86 Est GFR ( Amer) > 60 Glucose 93 Calcium 8.6 Impressions: Finger X-Ray 04/10/20 21:01 IMPRESSION: No acute osseous findings. Diffuse soft tissue swelling. Assessment & Plan - Diagnosis (1) Acute bacterial paronychia Is this a current diagnosis for this admission?: Yes (2) Felon of finger Is this a current diagnosis for this admission?: Yes (3) Finger infection Is this a current diagnosis for this admission?: Yes Plan: Plan for OR tomorrow a.m. Keep n.p.o. at midnight tonight Continue antibiotics Encourage out of bed Follow sensitivities ID consult placed - Time Time Spent with patient: Less than 15 minutes
[2020-04-13 09:54] LABS: VANCOMYCIN,TROUGH 10.9 ug/mL (5.0-20.0)
[2020-04-13] MEDS: DOCUSATE SODIUM 100 MG CAPSULE PO SCH (10:19)
[2020-04-13] MEDS: OXYBUTYNIN CHLORIDE 5 MG TABLET PO SCH ×2 (10:19→21:39)
[2020-04-13] MEDS: LEVETIRACETAM 500 MG TABLET PO SCH ×2 (10:19→21:38)
[2020-04-13] MEDS: OXYCODONE HCL IR 5 MG TABLET PO PRN ×3 (10:19→23:29)
[2020-04-13] MEDS: ENOXAPARIN SODIUM INJ 30 MG/0.3 ML DISP.SYRIN SUBCUT SCH (10:20)
[2020-04-13] MEDS: ASPIRIN 325 MG TABLET, ENT COATED PO SCH (10:20)
[2020-04-13] MEDS: VANCOMYCIN HCL 1,250 MG in DEXTROSE 5%-WATER 250 ML IV SCH (10:22)
--- NOTE | 2020-04-13 13:58 | PDOC PROGRESS REPORT ---
Subjective Progress Note for:: 04/13/20 Subjective:: She has right index finger infection, status post incison and drainage Reason For Visit: RIGHT FINGER INFECTION Physical Exam Vital Signs: Temp Pulse Resp BP Pulse Ox 97.5 F 60 21 H 122/77 97 04/13/20 11:37 04/13/20 11:37 04/13/20 11:37 04/13/20 11:37 04/13/20 11:37 Intake & Output 04/12/20 04/13/20 04/14/20 06:59 06:59 06:59 Intake Total 1210 2560 240 Balance 1210 2560 240 Weight 110.8 kg 116.9 kg General appearance: PRESENT: no acute distress Eye exam: PRESENT: PERRLA Respiratory exam: PRESENT: clear to auscultation doe Cardiovascular exam: PRESENT: +S1, +S2 GI/Abdominal exam: PRESENT: soft Results Laboratory Results: 04/13/20 04:58 04/13/20 04:58 04/13/20 04/13/20 04:58 04:58 WBC 3.0 L RBC 4.59 Hgb 12.2 Hct 36.8 MCV 80 MCH 26.6 L MCHC 33.1 RDW 14.0 Plt Count 162 Seg Neutrophils % Not Reportable Sodium 140.0 Potassium 3.9 Chloride 103 Carbon Dioxide 30 Anion Gap 7 BUN 13 Creatinine 0.86 Est GFR ( Amer) > 60 Glucose 93 Calcium 8.6 Impressions: Finger X-Ray 04/10/20 21:01 IMPRESSION: No acute osseous findings. Diffuse soft tissue swelling. Assessment & Plan - Diagnosis (1) Felon of finger Is this a current diagnosis for this admission?: Yes Plan: Continue antibiotic - Time Time Spent with patient: 25-34 minutes Level of Care: MEDICAL Medications reviewed and adjusted accordingly: Yes Anticipated discharge: Home
[2020-04-13] MEDS: VANCOMYCIN HCL 1,500 MG in DEXTROSE 5%-WATER 250 ML IV SCH (21:37)
[2020-04-13] MEDS: ATORVASTATIN CALCIUM 20 MG TABLET PO SCH (21:38)
[2020-04-14] MEDS: ACETAMINOPHEN 325 MG TABLET PO SCH ×3 (05:09→22:40)
[2020-04-14] MEDS: PANTOPRAZOLE SODIUM 20 MG TABLET.DR PO SCH (05:09)
[2020-04-14] MEDS: PIPERACILLIN SODIUM/TAZOBACTAM 3.375 GM in NORMAL SALINE 100 ML IV SCH ×3 (05:15→17:39)
[2020-04-14] MEDS: KETOROLAC TROMETHAMINE INJ/PF 30 MG/1 ML SDV IV SCH ×3 (05:15→22:39)
[2020-04-14 06:05] LABS: ABSOLUTE EOSINOPHILS # (AUTO) 0.2 10^3/uL (0.0-0.6); ABSOLUTE LYMPHOCYTES (AUTO) 1.6 10^3/uL (0.5-4.7); ABSOLUTE MONOCYTES (AUTO) 0.5 10^3/uL (0.1-1.4); ABSOLUTE NEUT (AUTO) 1.2 10^3/uL (1.7-8.2); BASOPHILS % (AUTO) 0.4 % (0-2); EOSINOPHILS % (AUTO) 4.6 % (0-6); HEMOGLOBIN 12.3 g/dL (12.0-15.5); LYMPHOCYTES % (AUTO) 46.3 % (13-45); MEAN CORPUSCULAR HEMOGLOBIN 26.7 pg (27.0-33.4); MEAN CORPUSCULAR HGB CONC 33.3 g/dL (32.0-36.0); MEAN CORPUSCULAR VOLUME 80 fl (80-97); MONOCYTES % (AUTO) 15.4 % (3-13); PLATELET COUNT 179 10^3/uL (150-450); RED BLOOD COUNT 4.62 10^6/uL (3.72-5.28); RED CELL DISTRIBUTION WIDTH 14.4 % (11.5-14.0); SEGMENTED NEUTROPHILS % (AUTO) 33.3 % (42-78); TOTAL CELLS COUNTED % (AUTO) 100 %; WHITE BLOOD COUNT 3.5 10^3/uL (4.0-10.5)
[2020-04-14 06:33] LABS: ANION GAP 7 (5-19); BLOOD UREA NITROGEN 11 mg/dL (7-20); CALCIUM 8.6 mg/dL (8.4-10.2); CARBON DIOXIDE 31 mmol/L (22-30); CHLORIDE 104 mmol/L (98-107); GLUCOSE 90 mg/dL (75-110); POTASSIUM 3.9 mmol/L (3.6-5.0)
[2020-04-14] MEDS: OXYCODONE HCL IR 5 MG TABLET PO PRN ×3 (07:37→22:43)
[2020-04-14] MEDS: ENOXAPARIN SODIUM INJ 30 MG/0.3 ML DISP.SYRIN SUBCUT SCH (09:27)
[2020-04-14] MEDS: VANCOMYCIN HCL 1,500 MG in DEXTROSE 5%-WATER 250 ML IV SCH ×2 (10:06→22:49)
--- NOTE | 2020-04-14 10:52 | PDOC PROGRESS REPORT ---
Subjective Progress Note for:: 04/14/20 Subjective:: Patient seen and evaluated. Still states she has pain and soreness throughout her finger, states she has had minimal improvement over the past 24 hours.. Notes numbness along the tip. No chills or sweats. Reason For Visit: RIGHT FINGER INFECTION Physical Exam Vital Signs: Temp Pulse Resp BP Pulse Ox 97.9 F 72 19 115/88 H 99 04/14/20 07:32 04/14/20 07:32 04/14/20 07:32 04/14/20 07:32 04/14/20 07:32 Intake & Output 04/13/20 04/14/20 04/15/20 06:59 06:59 06:59 Intake Total 2560 1620 Balance 2560 1620 Weight 116.9 kg 116.8 kg Musculoskeletal exam: PRESENT: other - Right middle finger: Laceration on the distal tip. Nail removed dorsally. Swelling noted throughout the digit. Pain along the flexor sheath. Pain exacerbated with passive flexion. Hypoesthesias on the distal tip. Normal skin turgor. Cap refill delayed compared to adjacent digits. Results Laboratory Results: 04/14/20 05:14 04/14/20 05:14 04/14/20 04/14/20 05:14 05:14 WBC 3.5 L RBC 4.62 Hgb 12.3 Hct 37.0 MCV 80 MCH 26.7 L MCHC 33.3 RDW 14.4 H Plt Count 179 Seg Neutrophils % 33.3 L Sodium 141.5 Potassium 3.9 Chloride 104 Carbon Dioxide 31 H Anion Gap 7 BUN 11 Creatinine 0.90 Est GFR ( Amer) > 60 Glucose 90 Calcium 8.6 Impressions: Finger X-Ray 04/10/20 21:01 IMPRESSION: No acute osseous findings. Diffuse soft tissue swelling. Assessment & Plan - Diagnosis (1) Flexor tenosynovitis of finger Is this a current diagnosis for this admission?: Yes Plan: Patient continued to have persistent pain and swelling of the middle finger there is questionable involvement of the underlying flexor sheath given patient's care to see notable clinical improvement decision was made to proceed with repeat irrigation debridement of the right middle finger and the operating room. Risk and benefits of surgical procedure have been explained to the patient risk including neurovascular risk, recurrent infection, postoperative pain, stiffness patient has verbalized understanding consented for surgical procedure. - Time Time Spent with patient: Less than 15 minutes
[2020-04-14] MEDS: LEVETIRACETAM 500 MG TABLET PO SCH ×2 (10:54→22:41)
[2020-04-14] MEDS: DOCUSATE SODIUM 100 MG CAPSULE PO SCH (10:58)
[2020-04-14] MEDS ORDERED: MIDAZOLAM 2 MG/2 ML INJ ONE (11:15)
[2020-04-14] MEDS ORDERED: FENTANYL CITRATE INJ/PF 100 MCG/2 ML AMPUL ONE (11:15)
[2020-04-14] MEDS ORDERED: DEXMEDETOMIDINE INJ 80 MCG/20 ML VIAL IV ONE (11:15)
[2020-04-14] MEDS ORDERED: PROPOFOL INJ 200 MG/20 ML VIAL IV ONE (11:15)
[2020-04-14] MEDS ORDERED: BUPIVACAINE HCL 0.5 % INJ/PF 30 ML SDV ONE (11:30)
[2020-04-14] MEDS: ASPIRIN 325 MG TABLET, ENT COATED PO SCH (11:54)
[2020-04-14] MEDS: OXYBUTYNIN CHLORIDE 5 MG TABLET PO SCH ×2 (11:54→22:50)
[2020-04-14] MEDS ORDERED: LIDOCAINE 1% INJ-PF (10 MG/ML) 30 ML SDV ONE (12:14)
[2020-04-14] MEDS ORDERED: MEPERIDINE HCL/PF INJ 25 MG/1 ML DISP.SYRIN IV PRN (12:16)
[2020-04-14] MEDS ORDERED: FENTANYL CITRATE INJ/PF 100 MCG/2 ML AMPUL IV PRN ×3 (12:16)
[2020-04-14] MEDS ORDERED: DIPHENHYDRAMINE HCL 50 MG/ML VIAL IV PRN (12:16)
[2020-04-14] MEDS ORDERED: ONDANSETRON HCL INJ/PF 4 MG/2 ML SDV IV PRN (12:16)
[2020-04-14] MEDS ORDERED: MORPHINE SULFATE 10 MG/ML INJ IV PRN (12:16)
[2020-04-14] MEDS ORDERED: OXYCODONE-ACETAMINOPHEN 5-325 MG TABLET PO PRN ×2 (12:16)
[2020-04-14] MEDS ORDERED: PROMETHAZINE HCL INJ 25 MG/1 ML VIAL IV PRN ×2 (12:16)
--- NOTE | 2020-04-14 12:45 | Operative Report ---
Operative Report DATE OF SURGERY: 04/14/20 PREOPERATIVE DIAGNOSIS: Right middle finger felon, flexor tenosynovitis POSTOPERATIVE DIAGNOSIS: Same OPERATION: Irrigation and debridement right middle finger flexor tendon sheath SURGEON: CLEMENT SMITH ANESTHESIA: LMAC TISSUE REMOVED OR ALTERED: Aerobic, anaerobic cultures COMPLICATIONS: None ESTIMATED BLOOD LOSS: Minimal PROCEDURE: Indication for above procedure: 55-year-old female who developed infection of her right middle finger. Subsequently underwent bedside irrigation and debridement which failed to see significant improvement in terms of patient's symptoms. Cultures were positive for Morganella morganii which is resistant to majority of p.o. antibiotics but sensitive to Zosyn which patient currently is receiving. Given patient's failure to see clinical improvement decision was made to proceed with operative intervention. Procedure In Detail: Patient was seen and evaluated in the preoperative holding area. The RIGHT upper extremity was initialized and marked. Patient receiving regularly scheduled antibiotics. Patient was taken back to the operative room where transferred to the operative table. Once they were adequately anesthetized a nonsterile tourniquet was placed on the upper extremity. A surgical team debriefing was performed ensuring all instrumentation was available, the surgical procedure was discussed with possible concerns reviewed. A digital block was performed utilizing 10 mL of 1% lidocaine without epinephrine. The u pper extremity was prepped with chlorhexidine and alcohol and draped in a sterile fashion. A timeout was done identifying correct patient, procedure and extremity everyone in attendance agree with this and verbalized no concerns. The extremity was elevated the tourniquet was inflated to 250 mmHg. Longitudinal skin incision was made centered over the A1 zulema of the middle finger, minimal amount of clear appearing fluid was encountered cultures were obtained. The radial and ulnar neurovascular bundles were identified and retracted from the wound. The A1 zulema was identified and incised. The pediatric feeding tube was then fed from proximal to distal. Adry skin incision was made over the DIP joint volarly. A5 zulema was released. There was significant fraying of the FDP tendon mainly along the radial border. Nonviable tendon was excised. With the feeding tube fed into the flexor tendon sheath it was then irrigated with saline. Both wounds were then irrigated independently. Skin was closed with interrupted 4-0 nylon suture. [place] drain was placed proximally. Wound was dressed Xeroform for fours and soft dressing. Sponge counts, instrument counts, needle counts counts were correct. Patient was then awoken from anesthesia. Transferred from the operating room table to the operating room stretcher. There was no intraoperative complications patient tolerated procedure well stable to PACU. Postoperative plan: Patient will continue on IV antibiotics as per culture results.
[2020-04-14] MEDS ORDERED: OXYCODONE-ACETAMINOPHEN 5-325 MG TABLET ONE (12:49)
--- NOTE | 2020-04-14 15:48 | PDOC PROGRESS REPORT ---
Subjective Progress Note for:: 04/14/20 Subjective:: Patient seen by the bedside, she had a second operative procedure done today Reason For Visit: RIGHT FINGER INFECTION Physical Exam Vital Signs: Temp Pulse Resp BP Pulse Ox 97.5 F 51 L 17 142/88 H 96 04/14/20 14:14 04/14/20 14:14 04/14/20 14:14 04/14/20 14:14 04/14/20 14:14 Intake & Output 04/13/20 04/14/20 04/15/20 06:59 06:59 06:59 Intake Total 2560 1620 900 Output Total 3 Balance 2560 1620 897 Weight 116.9 kg 116.8 kg General appearance: PRESENT: no acute distress Eye exam: PRESENT: PERRLA Respiratory exam: PRESENT: clear to auscultation doe Cardiovascular exam: PRESENT: +S1, +S2 GI/Abdominal exam: PRESENT: soft Neurological exam: PRESENT: alert Results Laboratory Results: 04/14/20 05:14 04/14/20 05:14 04/14/20 04/14/20 05:14 05:14 WBC 3.5 L RBC 4.62 Hgb 12.3 Hct 37.0 MCV 80 MCH 26.7 L MCHC 33.3 RDW 14.4 H Plt Count 179 Seg Neutrophils % 33.3 L Sodium 141.5 Potassium 3.9 Chloride 104 Carbon Dioxide 31 H Anion Gap 7 BUN 11 Creatinine 0.90 Est GFR ( Amer) > 60 Glucose 90 Calcium 8.6 Impressions: Finger X-Ray 04/10/20 21:01 IMPRESSION: No acute osseous findings. Diffuse soft tissue swelling. Assessment & Plan - Diagnosis (1) Felon of finger Is this a current diagnosis for this admission?: Yes Plan: Continue antibiotic - Time Time Spent with patient: 15-24 minutes Level of Care: IMCU Medications reviewed and adjusted accordingly: Yes Anticipated discharge: Home Anticipated DC Timeframe: within 72 hours
[2020-04-14] MEDS: NORMAL SALINE 1000 ML 1,000 ML IV PRN (17:38)
[2020-04-14] MEDS ORDERED: OXYCODONE HCL IR 5 MG TABLET PO PRN (19:58)
[2020-04-14] MEDS ORDERED: HYDROCHLOROTHIAZIDE 12.5 MG TABLET PO ONE (20:15)
[2020-04-14] MEDS: ATORVASTATIN CALCIUM 20 MG TABLET PO SCH (22:42)
[2020-04-15] MEDS: ACETAMINOPHEN 325 MG TABLET PO SCH ×3 (05:14→22:04)
[2020-04-15] MEDS: OXYCODONE HCL IR 5 MG TABLET PO PRN ×4 (05:15→23:34)
[2020-04-15] MEDS: PANTOPRAZOLE SODIUM 20 MG TABLET.DR PO SCH (05:15)
[2020-04-15] MEDS: KETOROLAC TROMETHAMINE INJ/PF 30 MG/1 ML SDV IV SCH ×3 (05:15→22:03)
[2020-04-15] MEDS: PIPERACILLIN SODIUM/TAZOBACTAM 3.375 GM in NORMAL SALINE 100 ML IV SCH ×3 (05:22)
[2020-04-15 06:10] LABS: ABSOLUTE EOSINOPHILS # (AUTO) 0.1 10^3/uL (0.0-0.6); ABSOLUTE LYMPHOCYTES (AUTO) 1.1 10^3/uL (0.5-4.7); ABSOLUTE MONOCYTES (AUTO) 0.6 10^3/uL (0.1-1.4); ABSOLUTE NEUT (AUTO) 2.5 10^3/uL (1.7-8.2); BASOPHILS % (AUTO) 0.4 % (0-2); EOSINOPHILS % (AUTO) 3.1 % (0-6); HEMATOCRIT 34.6 % (36.0-47.0); HEMOGLOBIN 11.5 g/dL (12.0-15.5); LYMPHOCYTES % (AUTO) 25.6 % (13-45); MEAN CORPUSCULAR HEMOGLOBIN 26.7 pg (27.0-33.4); MEAN CORPUSCULAR HGB CONC 33.3 g/dL (32.0-36.0); MEAN CORPUSCULAR VOLUME 80 fl (80-97); MONOCYTES % (AUTO) 13.4 % (3-13); PLATELET COUNT 177 10^3/uL (150-450); RED BLOOD COUNT 4.31 10^6/uL (3.72-5.28); RED CELL DISTRIBUTION WIDTH 14.4 % (11.5-14.0); SEGMENTED NEUTROPHILS % (AUTO) 57.5 % (42-78); TOTAL CELLS COUNTED % (AUTO) 100 %; WHITE BLOOD COUNT 4.4 10^3/uL (4.0-10.5)
[2020-04-15] MEDS: LEVETIRACETAM 500 MG TABLET PO SCH ×2 (09:18→22:04)
[2020-04-15] MEDS: HYDROCHLOROTHIAZIDE 12.5 MG TABLET PO SCH (09:18)
[2020-04-15] MEDS: VANCOMYCIN HCL 1,500 MG in DEXTROSE 5%-WATER 250 ML IV SCH (09:19)
[2020-04-15] MEDS: OXYBUTYNIN CHLORIDE 5 MG TABLET PO SCH ×2 (09:19→22:04)
[2020-04-15] MEDS: DOCUSATE SODIUM 100 MG CAPSULE PO SCH (09:19)
[2020-04-15] MEDS: ASPIRIN 325 MG TABLET, ENT COATED PO SCH (09:19)
[2020-04-15] MEDS: ENOXAPARIN SODIUM INJ 30 MG/0.3 ML DISP.SYRIN SUBCUT SCH (09:20)
--- NOTE | 2020-04-15 10:38 | PDOC PROGRESS REPORT ---
Subjective Progress Note for:: 04/15/20 Subjective:: Patient is currently doing well except pain in the finger status post surgery No fever no chills No seizures activity Reason For Visit: RIGHT FINGER INFECTION Physical Exam Vital Signs: Temp Pulse Resp BP Pulse Ox 97.8 F 87 17 117/67 97 04/15/20 08:21 04/15/20 08:21 04/15/20 08:21 04/15/20 08:21 04/15/20 08:21 Intake & Output 04/14/20 04/15/20 04/16/20 06:59 06:59 06:59 Intake Total 2620 1690 1184 Output Total 3 Balance 2620 1687 1184 Weight 116.8 kg 118.9 kg General appearance: PRESENT: no acute distress, well-developed, well-nourished Head exam: PRESENT: atraumatic, normocephalic Eye exam: PRESENT: conjunctiva pink, EOMI, PERRLA. ABSENT: scleral icterus Ear exam: PRESENT: normal external ear exam Mouth exam: PRESENT: moist, tongue midline Neck exam: PRESENT: full ROM. ABSENT: carotid bruit, JVD, lymphadenopathy, thyromegaly Respiratory exam: PRESENT: clear to auscultation doe Cardiovascular exam: PRESENT: RRR. ABSENT: diastolic murmur, rubs, systolic murmur Pulses: PRESENT: normal dorsalis pedis pul, +2 pedal pulses bilateral Vascular exam: PRESENT: normal capillary refill GI/Abdominal exam: PRESENT: normal bowel sounds, soft. ABSENT: distended, guarding, mass, organolmegaly, rebound, tenderness Rectal exam: PRESENT: deferred Additional comments: Right middle finger with the dressing is intact Neurological exam: PRESENT: alert, awake, oriented to person, oriented to place, oriented to time, oriented to situation, CN II-XII grossly intact. ABSENT: motor sensory deficit Psychiatric exam: PRESENT: appropriate affect, normal mood. ABSENT: homicidal ideation, suicidal ideation Skin exam: PRESENT: dry, intact, warm. ABSENT: cyanosis, rash Results Laboratory Results: 04/15/20 05:21 04/14/20 05:14 04/15/20 05:21 WBC 4.4 RBC 4.31 Hgb 11.5 L Hct 34.6 L MCV 80 MCH 26.7 L MCHC 33.3 RDW 14.4 H Plt Count 177 Seg Neutrophils % 57.5 Impressions: Finger X-Ray 04/10/20 21:01 IMPRESSION: No acute osseous findings. Diffuse soft tissue swelling. 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 Is this a current diagnosis for this admission?: Yes (4) Hypertension Qualifiers: Hypertension type: unspecified Qualified Code(s): I10 - Essential (primary) hypertension Is this a current diagnosis for this admission?: Yes (5) Left sided cerebral hemisphere cerebrovascular accident (CVA) Is this a current diagnosis for this admission?: No (6) Prediabetes Is this a current diagnosis for this admission?: Yes (7) Seizure disorder Is this a current diagnosis for this admission?: Yes - Time Time Spent with patient: 15-24 minutes Level of Care: TELE Medications reviewed and adjusted accordingly: Yes Anticipated discharge: Home - Plan Summary Plan Summary: Continues to IV antibiotics follow-up with the surgery
--- NOTE | 2020-04-15 12:47 | PDOC PROGRESS REPORT ---
Subjective Subjective:: Patient seen and evaluated. Still states she has pain and soreness throughout her finger, although patient feels though it is improved. Denies fever or chills. Reason For Visit: RIGHT FINGER INFECTION Physical Exam Vital Signs: Temp Pulse Resp BP Pulse Ox 97.8 F 87 17 117/67 97 04/15/20 10:00 04/15/20 08:21 04/15/20 08:21 04/15/20 08:21 04/15/20 08:21 Intake & Output 04/14/20 04/15/20 04/16/20 06:59 06:59 06:59 Intake Total 2620 1690 1434 Output Total 3 Balance 2620 1687 1434 Weight 116.8 kg 118.9 kg Musculoskeletal exam: PRESENT: other - Right middle finger: Surgical incision demonstrate mild maceration. Serosanguineous fluid along the proximal incision no drainage distally. Cap refill less than 2 seconds. Normal skin turgor. Hypoesthesias in the distal tip. No tenderness along the flexor sheath. No pain with passive extension. Pain with attempted terminal flexion. Results Laboratory Results: 04/15/20 05:21 04/14/20 05:14 04/15/20 05:21 WBC 4.4 RBC 4.31 Hgb 11.5 L Hct 34.6 L MCV 80 MCH 26.7 L MCHC 33.3 RDW 14.4 H Plt Count 177 Seg Neutrophils % 57.5 04/11/20 07:54 Finger - Right Middle Finger Gram Stain - Final Impressions: Finger X-Ray 04/10/20 21:01 IMPRESSION: No acute osseous findings. Diffuse soft tissue swelling. Assessment & Plan - Diagnosis (1) Flexor tenosynovitis of finger Is this a current diagnosis for this admission?: Yes Plan: Postop day #1 status post irrigation and debridement right middle finger flexor sheath 1. Continue vancomycin/Zosyn previous cultures positive for morganii Morganelli which is resistant to all p.o. antibiotics. Awaiting infectious disease recommendations. 2. Patient will begin chlorhexidine soaks and then transition to wet-to-dry dressing. 3. Encourage patient to begin active and passive range of motion exercises in order to avoid postoperative stiffness. 4. Anticipate discharge in 24 hours. - Time Time Spent with patient: Less than 15 minutes
--- NOTE | 2020-04-15 14:06 | Progress Note ---
Provider Note Provider Note: [facility] Telephone Advice Follow Up Update: Patient's initial cultures are polymicrobial including Streptococcus, Mo rganella, Prevotella and Parvionas. Antibiotic therapy was changed to cefepime and vancomycin during the weekend. She was presenting worsening pain in her finger for which she was taken to the OR yesterday for debridement of necrotic tissue. Per notes symptoms slightly improved. Cultures from 04/14 are in process. Blood cultures were negative. Patient is a 55-year-old woman with history of seizure disorder on Keppra, hypertension, hyperlipidemia, who was evaluated in the ED for paronychia and cellulitis of the hand. Patient presented with hand swelling, redness pain that started on her right middle finger and extended to her hand. She was unable to extend the hand without significant pain. She bites her fingernails regularly. She was evaluated by orthopedics in the ED. I&D was performed and there was concern for tendon sheath involvement, extension of the infection up to the mcp joint. She was started on vancomycin and zosyn awaiting cultures. Allergies: shellfish derived Allergy (Verified 04/10/20 20:50) bee sting Allergy (Uncoded 04/10/20 20:50) Vital Signs: Temp Pulse Resp BP Pulse Ox 97.8 F 87 17 117/67 97 04/15/20 10:00 04/15/20 08:21 04/15/20 08:21 04/15/20 08:21 04/15/20 08:21 Intake & Output 04/14/20 04/15/20 04/16/20 06:59 06:59 06:59 Intake Total 2620 1690 1434 Output Total 3 Balance 2620 1687 1434 Weight 116.8 kg 118.9 kg Weight/Height Weight 118.9 kg Height 5 ft 11 in Laboratories: 04/15/20 05:21 04/14/20 05:14 MCV 80 fl (80-97) 04/15/20 05:21 MCH 26.7 pg (27.0-33.4) L 04/15/20 05:21 MCHC 33.3 g/dL (32.0-36.0) 04/15/20 05:21 RDW 14.4 % (11.5-14.0) H 04/15/20 05:21 Seg Neutrophils % 57.5 % (42-78) 04/15/20 05:21 Chloride 104 mmol/L (98-107) 04/14/20 05:14 Carbon Dioxide 31 mmol/L (22-30) H 04/14/20 05:14 Anion Gap 7 (5-19) 04/14/20 05:14 Est GFR ( Amer) > 60 (>60) 04/14/20 05:14 Glucose 90 mg/dL (75-110) 04/14/20 05:14 Calcium 8.6 mg/dL (8.4-10.2) 04/14/20 05:14 Total Bilirubin 0.4 mg/dL (0.2-1.3) 04/10/20 21:15 AST 23 U/L (14-36) 04/10/20 21:15 Alkaline Phosphatase 60 U/L (38-126) 04/10/20 21:15 Total Protein 8.0 g/dL (6.3-8.2) 04/10/20 21:15 Albumin 4.0 g/dL (3.5-5.0) 04/10/20 21:15 04/11/20 07:54 Finger - Right Middle Finger Gram Stain - Final 04/11/20 07:54 Finger - Right Middle Finger Wound Culture - Final Morganella Morganii Group F Beta Streptococcus Prevotella Species Parvimonas(Peptostrep) Species Blood culture: 04/11 NGTD Tissue culture: 04/11 Streptococcus Morganella morganii, Prevotella, Parvimonas Radiology: Finger X-Ray 04/10/20 21:01 IMPRESSION: No acute osseous findings. Diffuse soft tissue swelling. Assessment and Recommendations: Patient evaluated for paronychia, felon and hand cellulitis. She is s/p I&D x 2 with concerns for tenosynovitis. She is on vancomycin, zosyn was changed to cefepime after updated growing Streptococcus, Morganella. Today updated growing Parvimonas and Prevotella. These are anaerobes. Due to th complexity/extent of the infection requiring 2 visits to the OR for debridement, will recommend 4 weeks of therapy. Cefepime 2g every 12 hr + metronidazole 500 mg po bid. Another alternative could be ertapenem 1g IV daily (should be monitor for seizures although low risk compared to other carbapenems). EOT 05/12/20. Please monitor CBC, CMP, ESR adn CRP weekly. Remove PICC line at completion of therapy. Please call if questions. Brittanie Pedersen MD [facility] ID [phone]
[2020-04-15] MEDS: LACTOBACILLUS ACIDOPHILUS 250 MG TAB PO SCH (17:34)
[2020-04-15] MEDS: CEFEPIME HCL 2 GM in DEXTROSE 5%-WATER 50 ML IV SCH (17:34)
[2020-04-15] MEDS ORDERED: CEFEPIME 2 GM/D5W RTU 2 GM/50 ML RTUPB IV SCH (22:00)
[2020-04-15] MEDS: METRONIDAZOLE 500 MG TABLET PO SCH (22:04)
[2020-04-15] MEDS: ATORVASTATIN CALCIUM 20 MG TABLET PO SCH (22:04)
[2020-04-16] MEDS: OXYCODONE HCL IR 5 MG TABLET PO PRN ×3 (04:34→20:40)
[2020-04-16] MEDS: KETOROLAC TROMETHAMINE INJ/PF 30 MG/1 ML SDV IV SCH (06:13)
[2020-04-16 06:14] LABS: HEMATOCRIT 37.2 % (36.0-47.0); HEMOGLOBIN 12.4 g/dL (12.0-15.5); MEAN CORPUSCULAR HEMOGLOBIN 26.7 pg (27.0-33.4); MEAN CORPUSCULAR HGB CONC 33.3 g/dL (32.0-36.0); MEAN CORPUSCULAR VOLUME 80 fl (80-97); PLATELET COUNT 146 10^3/uL (150-450); RED BLOOD COUNT 4.64 10^6/uL (3.72-5.28); RED CELL DISTRIBUTION WIDTH 14.5 % (11.5-14.0); WHITE BLOOD COUNT 4.6 10^3/uL (4.0-10.5)
[2020-04-16] MEDS: PANTOPRAZOLE SODIUM 20 MG TABLET.DR PO SCH (06:14)
[2020-04-16] MEDS: ACETAMINOPHEN 325 MG TABLET PO SCH ×3 (06:14→21:21)
[2020-04-16] MEDS: CEFEPIME HCL 2 GM in DEXTROSE 5%-WATER 50 ML IV SCH ×2 (06:14→17:53)
[2020-04-16 06:36] LABS: ANION GAP 7 (5-19); BLOOD UREA NITROGEN 9 mg/dL (7-20); CALCIUM 8.9 mg/dL (8.4-10.2); CARBON DIOXIDE 31 mmol/L (22-30); CHLORIDE 103 mmol/L (98-107); GLUCOSE 91 mg/dL (75-110); POTASSIUM 3.7 mmol/L (3.6-5.0)
[2020-04-16 06:52] LABS: ABSOLUTE MONOCYTES # (MANUAL) 0.3 10^3/uL (0.1-1.4); BASOPHILS % (MANUAL) 1 % (0-2); EOSINOPHILS % (MANUAL) 4 % (0-6); LYMPHOCYTES % (MANUAL) 43 % (13-45); MONOCYTES % (MANUAL) 7 % (3-13); SEGMENTED NEUTROPHILS % (MAN) 45 % (42-78); TOTAL CELLS COUNTED 100
[2020-04-16 06:55] LABS: ANISOCYTOSIS SLIGHT; OVALOCYTES SLIGHT; PLATELET COMMENT ADEQUATE; POIKILOCYTOSIS SLIGHT; TOXIC GRANULATION 1+
[2020-04-16] MEDS: LACTOBACILLUS ACIDOPHILUS 250 MG TAB PO SCH ×2 (09:29→17:53)
[2020-04-16] MEDS: ASPIRIN 325 MG TABLET, ENT COATED PO SCH (09:29)
[2020-04-16] MEDS: HYDROCHLOROTHIAZIDE 12.5 MG TABLET PO SCH (09:29)
[2020-04-16] MEDS: METRONIDAZOLE 500 MG TABLET PO SCH ×2 (09:29→21:21)
[2020-04-16] MEDS: ENOXAPARIN SODIUM INJ 30 MG/0.3 ML DISP.SYRIN SUBCUT SCH (09:29)
[2020-04-16] MEDS: OXYBUTYNIN CHLORIDE 5 MG TABLET PO SCH ×2 (09:29→21:21)
[2020-04-16] MEDS: DOCUSATE SODIUM 100 MG CAPSULE PO SCH (09:30)
[2020-04-16] MEDS: LEVETIRACETAM 500 MG TABLET PO SCH ×2 (09:30→21:21)
[2020-04-16] MEDS ORDERED: PHARMACY COMMUNICATION ORDER MC ONE (09:30)
--- NOTE | 2020-04-16 09:51 | PDOC PROGRESS REPORT ---
Subjective Progress Note for:: 04/16/20 Subjective:: Patient seen and evaluated. Still states she has soreness throughout her finger, although patient feels it continues to improve. Denies fever chills or sweats. No further complaints. Reason For Visit: RIGHT FINGER INFECTION Physical Exam Vital Signs: Temp Pulse Resp BP Pulse Ox 97.8 F 69 18 122/88 H 96 04/16/20 08:26 04/16/20 07:44 04/16/20 07:44 04/16/20 07:44 04/16/20 07:44 Intake & Output 04/15/20 04/16/20 04/17/20 06:59 06:59 06:59 Intake Total 1690 2114 Output Total 3 Balance 1687 2114 Weight 118.9 kg 116.8 kg Musculoskeletal exam: PRESENT: other - Right middle finger: Swelling throughout the middle finger incision is volarly well approximated no erythema. No palpable fluctuance. No tenderness in the flexor sheath. 15 degree PIP joint contracture mild pain with terminal extension. Patient lacks tip to palm flexion. Hypoesthesias on distal tip. Cap refill less than 2 seconds. Normal skin turgor. Swelling along the proximal nail fold with evidence of granulation no palpable fluctuance or expressible drainage. Results Laboratory Results: 04/16/20 04:46 04/16/20 04:46 04/16/20 04/16/20 04:46 04:46 WBC 4.6 RBC 4.64 Hgb 12.4 Hct 37.2 MCV 80 MCH 26.7 L MCHC 33.3 RDW 14.5 H Plt Count 146 L Seg Neutrophils % Not Reportable Sodium 140.7 Potassium 3.7 Chloride 103 Carbon Dioxide 31 H Anion Gap 7 BUN 9 Creatinine 0.78 Est GFR ( Amer) > 60 Glucose 91 Calcium 8.9 04/11/20 09:25 Blood Blood Culture - Final NO GROWTH IN 5 DAYS 04/11/20 07:54 Finger - Right Middle Finger Gram Stain - Final 04/11/20 07:54 Finger - Right Middle Finger Wound Culture - Final Morganella Morganii Group F Beta Streptococcus Prevotella Species Parvimonas(Peptostrep) Species Impressions: Finger X-Ray 04/10/20 21:01 IMPRESSION: No acute osseous findings. Diffuse soft tissue swelling. Assessment & Plan - Diagnosis (1) Flexor tenosynovitis of finger Is this a current diagnosis for this admission?: Yes Plan: Patient's cultures are positive for Pepto streptococcus, Morganella, Parvimonas and Prevotella. Given complexity of patient's infection infectious disease has recommended IV antibiotics 4 weeks of therapy. Cefepime 2g every 12 hr + m etronidazole 500 mg po bid. patient will continue chlorhexidine soaks twice daily for the next 5 days. I have encouraged her to continue range of motion of the DIP/PIP and MP joints with flexion and extension. If patient received PICC line and home IV antibiotics are finalized patient stable for orthopedic discharge. Will follow-up in the office with me in 7 days. - Time Time Spent with patient: Less than 15 minutes
--- NOTE | 2020-04-16 13:16 | PDOC PROGRESS REPORT ---
Subjective Progress Note for:: 04/16/20 Subjective:: Patient is currently doing well except pain in the finger status post surgery No fever no chills No seizures activity Reason For Visit: RIGHT FINGER INFECTION Physical Exam Vital Signs: Temp Pulse Resp BP Pulse Ox 97.4 F 76 19 142/80 H 95 04/16/20 11:40 04/16/20 11:40 04/16/20 11:40 04/16/20 11:40 04/16/20 11:40 Intake & Output 04/15/20 04/16/20 04/17/20 06:59 06:59 06:59 Intake Total 1690 2114 50 Output Total 3 Balance 1687 2114 50 Weight 118.9 kg 116.8 kg General appearance: PRESENT: no acute distress, well-developed, well-nourished Head exam: PRESENT: atraumatic, normocephalic Eye exam: PRESENT: conjunctiva pink, EOMI, PERRLA. ABSENT: scleral icterus Ear exam: PRESENT: normal external ear exam Mouth exam: PRESENT: moist, tongue midline Neck exam: PRESENT: full ROM. ABSENT: carotid bruit, JVD, lymphadenopathy, thyromegaly Respiratory exam: PRESENT: clear to auscultation doe Cardiovascular exam: PRESENT: RRR. ABSENT: diastolic murmur, rubs, systolic murmur Pulses: PRESENT: normal dorsalis pedis pul, +2 pedal pulses bilateral Vascular exam: PRESENT: normal capillary refill GI/Abdominal exam: PRESENT: normal bowel sounds, soft. ABSENT: distended, guarding, mass, organolmegaly, rebound, tenderness Rectal exam: PRESENT: deferred Neurological exam: PRESENT: alert, awake, oriented to person, oriented to place, oriented to time, oriented to situation, CN II-XII grossly intact. ABSENT: motor sensory deficit Psychiatric exam: PRESENT: appropriate affect, normal mood. ABSENT: homicidal ideation, suicidal ideation Skin exam: PRESENT: dry, intact, warm. ABSENT: cyanosis, rash Results Laboratory Results: 04/16/20 04:46 04/16/20 04:46 04/16/20 04/16/20 04:46 04:46 WBC 4.6 RBC 4.64 Hgb 12.4 Hct 37.2 MCV 80 MCH 26.7 L MCHC 33.3 RDW 14.5 H Plt Count 146 L Seg Neutrophils % Not Reportable Sodium 140.7 Potassium 3.7 Chloride 103 Carbon Dioxide 31 H Anion Gap 7 BUN 9 Creatinine 0.78 Est GFR ( Amer) > 60 Glucose 91 Calcium 8.9 04/11/20 11:48 Blood Blood Culture - Final NO GROWTH IN 5 DAYS 04/11/20 09:25 Blood Blood Culture - Final NO GROWTH IN 5 DAYS 04/11/20 07:54 Finger - Right Middle Finger Gram Stain - Final 04/11/20 07:54 Finger - Right Middle Finger Wound Culture - Final Morganella Morganii Group F Beta Streptococcus Prevotella Species Parvimonas(Peptostrep) Species Impressions: Finger X-Ray 04/10/20 21:01 IMPRESSION: No acute osseous findings. Diffuse soft tissue swelling. 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 hopefully discharge tomorrow if is all arranged at home and check a CBC Chem-12 and sed rate and CRP weekly
[2020-04-16] MEDS ORDERED: NORMAL SALINE 10 ML SDV (AFTER EACH USE) IV PRN (14:00)
--- NOTE | 2020-04-16 14:07 | RADIOLOGY REPORT (SQ) ---
EXAM DESCRIPTION: PICC INSERTION IMAGES COMPLETED DATE/TIME: 04/16/2020 1:44 pm REASON FOR STUDY: ax out pt COMPARISON: None. FLUOROSCOPY TIME: 0.9 minutes. 2 images saved to PACS. TECHNIQUE: Fluoroscopic and ultrasound guided PICC placement. LIMITATIONS: None. PROCEDURE: After written consent and assessment were obtained, the patient was brought into the fluo roscopy room and placed supine on the table. Ultrasound evaluation of potential access sites were per formed. After successfully identifying a patent left basilic vein, the left arm was prepped and drape d in a sterile fashion along with the ultrasound probe. The entry site was anesthetized with 1% lidoc domingo. A 21 gauge 7 cm needle was advanced through the skin and into the basilic vein under live ultra sound guidance. An ultrasound image was saved to PACS confirming access site. A .018 guide wire was then inserted through the needle and into the venous system. The needle was then removed and an 11 b lade scalpel was used to make a 1cm skin incision. A 5 fr peel-away sheath was advanced over the wir e and into the venous system. A measurement was then made using the existing wire and live fluoroscop ic guidance. The wire was then removed and trimmed. The PICC was advanced through the peel-away sheat h and into the venous system. The peel-away sheath was removed and the catheter was adhered to the pa tients arm with a stat lock. The catheter was then aspirated and flushed and a sterile bandage was pl aced over the access site. A fluoroscopic spot image was saved to PACS confirming the catheter tip w ithin the superior vena cava. IMPRESSION: SUCCESSFUL PLACEMENT OF A 5 FR DUAL LUMEN 48 CM PICC IN THE LEFT BASILIC VEIN. COMMENT: Patient medication list reviewed: Yes- Quality ID# 130:Eligible professional attests to doc umenting in the medical record they obtained, updated, or reviewed the patient's current medications. . Quality ID 145: Final reports for procedures using fluoroscopy that document radiation exposure abner jacqueline, or exposure time and number of fluorographic images (if radiation exposure indices are not avail able) Quality ID #76: The patient was prepped and draped using maximum sterile barrier technique including cap, mask, sterile gown, sterile gloves, a large sterile sheet, hand hygiene, and 2% Chlorhexidine fo r cutaneous antisepsis. When ultrasound is used, sterile ultrasound techniques are followed requiring sterile gel and sterile probes. TECHNICAL DOCUMENTATION: JOB ID: [id number] 2010 [facility]- All Rights Reserved rev Reading location - IP/workstation name: [email or web address]
[2020-04-16] MEDS: ATORVASTATIN CALCIUM 20 MG TABLET PO SCH (21:21)
[2020-04-16] MEDS: NORMAL SALINE 10 ML SDV (SCHEDULED) IV SCH (21:23)
[2020-04-17 05:33] LABS: ANION GAP 5 (5-19); BLOOD UREA NITROGEN 13 mg/dL (7-20); CALCIUM 8.9 mg/dL (8.4-10.2); CARBON DIOXIDE 33 mmol/L (22-30); CHLORIDE 102 mmol/L (98-107); GLUCOSE 92 mg/dL (75-110); POTASSIUM 3.8 mmol/L (3.6-5.0)
[2020-04-17] MEDS: ACETAMINOPHEN 325 MG TABLET PO SCH ×2 (05:54→15:23)
[2020-04-17] MEDS: PANTOPRAZOLE SODIUM 20 MG TABLET.DR PO SCH (05:54)
[2020-04-17] MEDS: CEFEPIME HCL 2 GM in DEXTROSE 5%-WATER 50 ML IV SCH ×2 (05:54→17:12)
[2020-04-17] MEDS: OXYCODONE HCL IR 5 MG TABLET PO PRN (08:10)
[2020-04-17] MEDS: METRONIDAZOLE 500 MG TABLET PO SCH (10:28)
[2020-04-17] MEDS: LEVETIRACETAM 500 MG TABLET PO SCH (10:28)
[2020-04-17] MEDS: OXYBUTYNIN CHLORIDE 5 MG TABLET PO SCH (10:29)
[2020-04-17] MEDS: LACTOBACILLUS ACIDOPHILUS 250 MG TAB PO SCH ×2 (10:29→17:13)
[2020-04-17] MEDS: HYDROCHLOROTHIAZIDE 12.5 MG TABLET PO SCH (10:29)
[2020-04-17] MEDS: ASPIRIN 325 MG TABLET, ENT COATED PO SCH (10:29)
[2020-04-17] MEDS: DOCUSATE SODIUM 100 MG CAPSULE PO SCH (10:29)
[2020-04-17] MEDS: ENOXAPARIN SODIUM INJ 30 MG/0.3 ML DISP.SYRIN SUBCUT SCH (10:31)
[2020-04-17] MEDS: NORMAL SALINE 10 ML SDV (SCHEDULED) IV SCH (10:32)
--- NOTE | 2020-04-17 13:42 | PDOC PROGRESS REPORT ---
Subjective Progress Note for:: 04/17/20 Subjective:: Patient is currently doing well No fever no chills Is waiting for the outpatients IV antibiotic therapy Reason For Visit: RIGHT FINGER INFECTION Physical Exam Vital Signs: Temp Pulse Resp BP Pulse Ox 97.9 F 70 18 122/87 H 99 04/17/20 12:15 04/17/20 12:15 04/17/20 12:15 04/17/20 12:15 04/17/20 12:15 Intake & Output 04/16/20 04/17/20 04/18/20 06:59 06:59 06:59 Intake Total 2114 1225 50 Balance 2114 1225 50 Weight 116.8 kg 117.4 kg 118.4 kg General appearance: PRESENT: no acute distress, well-developed, well-nourished Head exam: PRESENT: atraumatic, normocephalic Eye exam: PRESENT: conjunctiva pink, EOMI, PERRLA. ABSENT: scleral icterus Ear exam: PRESENT: normal external ear exam Mouth exam: PRESENT: moist, tongue midline Neck exam: PRESENT: full ROM. ABSENT: carotid bruit, JVD, lymphadenopathy, thyromegaly Respiratory exam: PRESENT: clear to auscultation doe Cardiovascular exam: PRESENT: RRR. ABSENT: diastolic murmur, rubs, systolic murmur Pulses: PRESENT: normal dorsalis pedis pul, +2 pedal pulses bilateral Vascular exam: PRESENT: normal capillary refill GI/Abdominal exam: PRESENT: normal bowel sounds, soft. ABSENT: distended, guarding, mass, organolmegaly, rebound, tenderness Rectal exam: PRESENT: deferred Neurological exam: PRESENT: alert, awake, oriented to person, oriented to place, oriented to time, oriented to situation, CN II-XII grossly intact. ABSENT: motor sensory deficit Psychiatric exam: PRESENT: appropriate affect, normal mood. ABSENT: homicidal ideation, suicidal ideation Skin exam: PRESENT: dry, intact, warm. ABSENT: cyanosis, rash Results Laboratory Results: 04/16/20 04:46 04/17/20 04:13 04/17/20 04:13 Sodium 139.9 Potassium 3.8 Chloride 102 Carbon Dioxide 33 H Anion Gap 5 BUN 13 Creatinine 0.74 Est GFR ( Amer) > 60 Glucose 92 Calcium 8.9 04/11/20 11:48 Blood Blood Culture - Final NO GROWTH IN 5 DAYS Impressions: Finger X-Ray 04/10/20 21:01 IMPRESSION: No acute osseous findings. Diffuse soft tissue swelling. PICC Line Insertion 04/16/20 00:00 IMPRESSION: SUCCESSFUL PLACEMENT OF A 5 FR DUAL LUMEN 48 CM PICC IN THE LEFT BASILIC VEIN. 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 Is this a current diagnosis for this admission?: Yes (4) Hypertension Qualifiers: Hypertension type: unspecified Qualified Code(s): I10 - Essential (primary) hypertension Is this a current diagnosis for this admission?: Yes (5) Left sided cerebral hemisphere cerebrovascular accident (CVA) Is this a current diagnosis for this admission?: Yes (6) Prediabetes Is this a current diagnosis for this admission?: Yes (7) Seizure disorder Is this a current diagnosis for this admission?: Yes - Time Time Spent with patient: 15-24 minutes Level of Care: IMCU Medications reviewed and adjusted accordingly: Yes Anticipated discharge: Other Anticipated DC Timeframe: Other - Plan Summary Plan Summary: cont curr med
--- NOTE | 2020-04-17 15:44 | PDOC PROGRESS REPORT ---
Subjective Progress Note for:: 04/17/20 Subjective:: Patient continues to improve. No acute events overnight. Reports pain is improved in her finger. Reason For Visit: RIGHT FINGER INFECTION Physical Exam Vital Signs: Temp Pulse Resp BP Pulse Ox 97.9 F 70 18 122/87 H 99 04/17/20 12:15 04/17/20 12:15 04/17/20 12:15 04/17/20 12:15 04/17/20 12:15 Intake & Output 04/16/20 04/17/20 04/18/20 06:59 06:59 06:59 Intake Total 2114 1225 50 Balance 2114 1225 50 Weight 116.8 kg 117.4 kg 118.4 kg Physical Exam: NAD, AOX3 PRESENT: other - Right middle finger: Swelling throughout the middle finger incision is volarly well approximated no erythema. No palpable fluctuance. No tenderness in the flexor sheath. 15 degree PIP joint contracture mild pain with terminal extension. Patient lacks tip to palm flexion. Hypoesthesias on distal tip. Cap refill less than 2 seconds. Normal skin turgor. Swelling along the proximal nail fold with evidence of granulation no palpable fluctuance or expressible drainage. Results Laboratory Results: 04/16/20 04:46 04/17/20 04:13 04/17/20 04:13 Sodium 139.9 Potassium 3.8 Chloride 102 Carbon Dioxide 33 H Anion Gap 5 BUN 13 Creatinine 0.74 Est GFR ( Amer) > 60 Glucose 92 Calcium 8.9 04/11/20 11:48 Blood Blood Culture - Final NO GROWTH IN 5 DAYS Impressions: Finger X-Ray 04/10/20 21:01 IMPRESSION: No acute osseous findings. Diffuse soft tissue swelling. PICC Line Insertion 04/16/20 00:00 IMPRESSION: SUCCESSFUL PLACEMENT OF A 5 FR DUAL LUMEN 48 CM PICC IN THE LEFT BASILIC VEIN. Assessment & Plan - Diagnosis (1) Acute bacterial paronychia Is this a current diagnosis for this admission?: Yes (2) Felon of finger Is this a current diagnosis for this admission?: Yes (3) Finger infection Is this a current diagnosis for this admission?: Yes Plan: - Plan for DC home today - PICC in place - Send home with IV abx - Follow in 1 week with myself or Dr. Hawkins - patient will continue chlorhexidine soaks twice daily for the next 5 days. I have encouraged her to continue range of motion of the DIP/PIP and MP joints with flexion and extension. - Time Time Spent with patient: Less than 15 minutes
--- NOTE | 2020-04-17 16:11 | PDOC DISCHARGE SUMMARY ---
Impression - Admit/DC Date/PCP Admission Date/Primary Care Provider: 04/12/20 11:06 Discharge Date: 04/17/20 - Discharge Diagnosis (1) Acute bacterial paronychia Is this a current diagnosis for this admission?: Yes (2) Felon of finger Is this a current diagnosis for this admission?: Yes (3) Finger infection Is this a current diagnosis for this admission?: Yes - Assessment Summary: Patient was seen on 828 in the emergency department found to have a felon the potentially communicated with her flexor tendon sheath. This was of the right third digit. In the emergency department I provided a I&D at the bedside with thorough irrigation and sent for culture. Following her procedure, the patient was placed on broad-spectrum IV antibiotics including vancomycin and Zosyn. Infectious disease was consulted for their recommendations which were followed. The patient performed twice daily soaks in the interval. On Sunday 04/15 the patient continued to have pain proximally as well as no overt resolution of swelling and continued concerning appearance for infection with wound drainage. At that point there were taken back to the operating room for a formal I&D with address of the flexor tendon sheath at the same time. This was performed by Dr. Rafi Hawkins. On this day also the final antibiotic recommendations were delivered including a switch to cefepime and metronidazole. The patient was then placed on this and a PICC line was ordered. After placement of the PICC line and stabilization of the wound the patient was then deemed stable for discharge home with IV antibiotics they will continue to follow-up with Dr. fan and with Dr. Calix for further lab evaluation on a weekly basis. There were no other acute events or complications of the course of her stay. - Additional Information Resuscitation Status: Full Code Discharge Diet: As Tolerated Discharge Activity: No Lifting Over 10 Pounds, No Lifting/Push/Pulling Referrals: LUIS CALIX MD [Primary Care Provider] - 04/24/20 9:30 am RAFI HAWKINS DO [ACTIVE STAFF] - 04/19/20 10:20 am Prescriptions: Metronidazole [Flagyl] 500 mg PO BID #60 tablet Metronidazole [Flagyl 500 mg Tablet] 500 mg PO Q12 25 Days tablet Heparin Sodium,Porcine [Heparin Flush 10 Unit/ml 5 ml Disp.syrg] 30 unit IV Q12 #30 disp.syrin Cefepime HCl [Maxipime] 2 gm IV Q12 25 Days vial.port Oxycodone HCl/Acetaminophen [Percocet 5-325 mg Tablet] 1 tab PO Q6 PRN #25 tab PRN Reason: Home Medications: Aspirin [Ecotrin 325 mg EC Tablet] 325 mg PO DAILY 04/11/20 Cetirizine HCl [Zyrtec 10 mg Tablet] 10 mg PO DAILY 04/11/20 Hydrochlorothiazide 12.5 mg PO DAILY 04/11/20 Levetiracetam [Keppra 500 mg Tablet] 1,000 mg PO Q12 04/11/20 Oxybutynin Chloride [Ditropan Xl] 10 mg PO DAILY 04/11/20 Pravastatin Sodium 40 mg PO DAILY 04/11/20 Metronidazole [Flagyl] 500 mg PO BID #60 tablet 04/16/20 Oxycodone HCl/Acetaminophen [Percocet 5-325 mg Tablet] 1 tab PO Q6 PRN #25 tab 04/16/20 Acetaminophen [Tylenol 325 mg Tablet] 975 mg PO Q8 tablet 04/17/20 Cefepime HCl [Maxipime] 2 gm IV Q12 25 Days vial.port 04/17/20 Docusate Sodium [Colace 100 mg Capsule] 100 mg PO DAILY capsule 04/17/20 Heparin Sodium,Porcine [Heparin Flush 10 Unit/ml 5 ml Disp.syrg] 30 unit IV Q12 #30 disp.syrin 04/17/20 Hydrochlorothiazide [Hydrodiuril 12.5 mg Tablet] 12.5 mg PO DAILY tablet 04/17/20 Lactobacillus Acidophilus [Bacid 250 mg Tablet] 250 mg PO BID tab 04/17/20 Metronidazole [Flagyl 500 mg Tablet] 500 mg PO Q12 25 Days tablet 04/17/20 History of Present Illiness History of Present Illness: TANISHA MOTT is a 55 year old female who presents with 1 week swelling of the right middle finger. Physical exam versus temperature distal fingernails. Initially she had a potential paronychia that she reported increased and erythema and swelling up to the MCP joint. She now cannot sleep due to the pain or range her finger because of swelling and pain. She has been evaluated for tetanus and given appropriate treatment in the emergency department. Pain is 5 out of 10, burning, worse with any attempted motion, improved with rest and pain medication. She does report some intermittent drainage from the paronychia. Hospital Course Hospital Course: Patient was seen on 8 in the emergency department found to have a felon the potentially communicated with her flexor tendon sheath. This was of the right third digit. In the emergency department I provided a I&D at the bedside with thorough irrigation and sent for culture. Following her procedure, the patient was placed on broad-spectrum IV antibiotics including vancomycin and Zosyn. Infectious disease was consulted for their recommendations which were followed. The patient performed twice daily soaks in the interval. On Sunday 04/15 the patient continued to have pain proximally as well as no overt resolution of swelling and continued concerning appearance for infection with wound drainage. At that point there were taken back to the operating room for a formal I&D with address of the flexor tendon sheath at the same time. This was performed by Dr. Rafi Hawkins. On this day also the final antibiotic recommendations were delivered including a switch to cefepime and metronidazole. The patient was then placed on this and a PICC line was ordered. After placement of the PICC line and stabilization of the wound the patient was then deemed stable for discharge home with IV antibiotics they will continue to follow-up with Dr. christine solomon and with Dr. Calix for further lab evaluation on a weekly basis. There were no other acute events or complications of the course of her stay. Physical Exam Vital Signs: Temp Pulse Resp BP Pulse Ox 97.9 F 70 18 122/87 H 99 04/17/20 12:15 04/17/20 12:15 04/17/20 12:15 04/17/20 12:15 04/17/20 12:15 Intake & Output 04/16/20 04/17/20 04/18/20 06:59 06:59 06:59 Intake Total 2114 1225 50 Balance 2114 1225 50 Weight 116.8 kg 117.4 kg 118.4 kg Results Laboratory Results: WBC 4.6 10^3/uL (4.0-10.5) 04/16/20 04:46 RBC 4.64 10^6/uL (3.72-5.28) 04/16/20 04:46 Hgb 12.4 g/dL (12.0-15.5) 04/16/20 04:46 Hct 37.2 % (36.0-47.0) 04/16/20 04:46 MCV 80 fl (80-97) 04/16/20 04:46 MCH 26.7 pg (27.0-33.4) L 04/16/20 04:46 MCHC 33.3 g/dL (32.0-36.0) 04/16/20 04:46 RDW 14.5 % (11.5-14.0) H 04/16/20 04:46 Plt Count 146 10^3/uL (150-450) L 04/16/20 04:46 Lymph % (Auto) Not Reportable 04/16/20 04:46 [place] % (Auto) Not Reportable 04/16/20 04:46 Eos % (Auto) Not Reportable 04/16/20 04:46 Baso % (Auto) Not Reportable 04/16/20 04:46 Absolute Neuts (auto) Not Reportable 04/16/20 04:46 Absolute Lymphs (auto) Not Reportable 04/16/20 04:46 Absolute Monos (auto) Not Reportable 04/16/20 04:46 Absolute Eos (auto) Not Reportable 04/16/20 04:46 Absolute Basos (auto) Not Reportable 04/16/20 04:46 Total Counted 100 04/16/20 04:46 Seg Neutrophils % Not Reportable 04/16/20 04:46 Seg Neuts % (Manual) 45 % (42-78) 04/16/20 04:46 Lymphocytes % (Manual) 43 % (13-45) 04/16/20 04:46 Monocytes % (Manual) 7 % (3-13) 04/16/20 04:46 Eosinophils % (Manual) 4 % (0-6) 04/16/20 04:46 Basophils % (Manual) 1 % (0-2) 04/16/20 04:46 Abs Neuts (Manual) 2.1 10^3/uL (1.7-8.2) 04/16/20 04:46 Abs Lymphs (Manual) 2.0 10^3/uL (0.5-4.7) 04/16/20 04:46 Abs Monocytes (Manual) 0.3 10^3/uL (0.1-1.4) 04/16/20 04:46 Absolute Eos (Manual) 0.2 10^3/uL (0.0-0.6) 04/16/20 04:46 Abs Basophils (Manual) 0.0 10^3/uL (0.0-0.2) 04/16/20 04:46 Toxic Granulation 1+ 04/16/20 04:46 Platelet Comment ADEQUATE 04/16/20 04:46 Hypochromasia SLIGHT 04/13/20 04:58 Poikilocytosis SLIGHT 04/16/20 04:46 Anisocytosis SLIGHT 04/16/20 04:46 Ovalocytes SLIGHT 04/16/20 04:46 [place] Cells SLIGHT 04/13/20 04:58 Schistocytes SLIGHT 04/13/20 04:58 Sodium 139.9 mmol/L (137-145) 04/17/20 04:13 Potassium 3.8 mmol/L (3.6-5.0) 04/17/20 04:13 Chloride 102 mmol/L (98-107) 04/17/20 04:13 Carbon Dioxide 33 mmol/L (22-30) H 04/17/20 04:13 Anion Gap 5 (5-19) 04/17/20 04:13 BUN 13 mg/dL (7-20) 04/17/20 04:13 Creatinine 0.74 mg/dL (0.52-1.25) 04/17/20 04:13 Est GFR ( Amer) > 60 (>60) 04/17/20 04:13 Est GFR (MDRD) Non-Af > 60 (>60) 04/17/20 04:13 Glucose 92 mg/dL (75-110) 04/17/20 04:13 Calcium 8.9 mg/dL (8.4-10.2) 04/17/20 04:13 Total Bilirubin 0.4 mg/dL (0.2-1.3) 04/10/20 21:15 Direct Bilirubin 0.3 mg/dL (0.0-0.4) 04/10/20 21:15 Neonat Total Bilirubin Not Reportable 04/10/20 21:15 Neonat Direct Bilirubin Not Reportable 04/10/20 21:15 Neonat Indirect Bili Not Reportable 04/10/20 21:15 AST 23 U/L (14-36) 04/10/20 21:15 ALT 12 U/L (<35) 04/10/20 21:15 Alkaline Phosphatase 60 U/L (38-126) 04/10/20 21:15 Total Protein 8.0 g/dL (6.3-8.2) 04/10/20 21:15 Albumin 4.0 g/dL (3.5-5.0) 04/10/20 21:15 Time Trough Drawn 0925 04/13/20 09:25 Vancomycin Trough 10.9 ug/mL (5.0-20.0) 04/13/20 09:25 SARS-CoV-2 (PCR) NEGATIVE (NEGATIVE) 04/13/20 12:04 Impressions: Finger X-Ray 04/10/20 21:01 IMPRESSION: No acute osseous findings. Diffuse soft tissue swelling. PICC Line Insertion 04/16/20 00:00 IMPRESSION: SUCCESSFUL PLACEMENT OF A 5 FR DUAL LUMEN 48 CM PICC IN THE LEFT BASILIC VEIN. Stroke Is this a Stroke Patient?: No Acute Heart Failure - Is this a Heart Failure Patient?: No
[2020-04-17 17:59] VITALS: BP 115/88
== END 2020-04-17 18:30 | disposition home health service (06) | DRG 983 ==
LOC: ER 19:47 → EH 04-11 08:42 → 4N 04-11 09:47 → OBSVTOIN 04-12 11:06
PROVIDERS: ADMIT Family Medicine; ATTEND Family Medicine
PROC: 0HBQXZZ Excision of Finger Nail, External Approach (ICD-10-PCS; 2020-04-11)
PROC: 0H9FX0Z Drainage of Right Hand Skin with Drainage Device, External Approach (ICD-10-PCS; 2020-04-11)
PROC: 0LB70ZZ Excision of Right Hand Tendon, Open Approach (ICD-10-PCS; 2020-04-14)
PROC: 0L9700Z Drainage of Right Hand Tendon with Drainage Device, Open Approach (ICD-10-PCS; principal; 2020-04-14 11:00)
PROC: 02HV33Z Insertion of Infusion Device into Superior Vena Cava, Percutaneous Approach (ICD-10-PCS; 2020-04-16)
PROC: B518ZZA Fluoroscopy of Superior Vena Cava, Guidance (ICD-10-PCS; 2020-04-16)
DX: L03.011 Cellulitis of right finger (principal); M65.841 Other synovitis and tenosynovitis, right hand; B95.4 Other streptococcus as the cause of diseases classified elsewhere; B96.89 Other specified bacterial agents as the cause of diseases classified elsewhere; M79.89 Other specified soft tissue disorders; E78.2 Mixed hyperlipidemia; I10 Essential (primary) hypertension; L68.0 Hirsutism; G40.909 Epilepsy, unspecified, not intractable, without status epilepticus; F17.210 Nicotine dependence, cigarettes, uncomplicated; Z11.59 Encounter for screening for other viral diseases
CPT/HCPCS: 01810; 36415; 36573; 80048; 80053; 80202; 85025; 87040; 87070; 87075; 87077; 87186; 87205; 87635; 93005; 93010; 96365; 96375; 99285; C9803; G0378; J0690; J0692; J1642; J1650; J1885; J2250; J2270; J2405; J2543; J2704; J3010; J3370; J3490; J7030; J7050; J7060

== ENCOUNTER 2020-04-22 19:36 | Emergency (ER) | payer BC, MEDICAID ==
--- NOTE | 2020-04-22 20:03 | ER Document Report ---
ED Medical Screen (RME) - General Chief Complaint: Other Stated Complaint: BLEEDING AT PIC LINE/PORT Time Seen by Provider: 04/22/20 19:51 Primary Care Provider: LUIS FERNÁNDEZ MD [Primary Care Provider] - Follow up as needed Mode of Arrival: Wheelchair Information source: Patient Notes: 55-year-old female presents to ED for complaint of bleeding from her PICC line. She states she was going to give herself her IV antibiotics at home when the PICC line was bleeding. She states she just put the cap back on it and left it. She states she just had surgery to the right third finger by Dr. Hawkins either Wednesday or Wednesday she does not remember which and she was supposed to take some IV antibiotics through the PICC line but came to the emergency room because she did not know what was wrong with the PICC line. Patient is alert and oriented respirations regular nonlabored speaking in full sentences. Her temp is 99.5 pulse was 109 and O2 sat was 97%. She did have different vital signs in the computer than that but I rechecked him while I was assessing her. I have greeted and performed a rapid initial assessment of this patient. A comprehensive ED assessment and evaluation of the patient, analysis of test results and completion of medical decision making process will be conducted by an additional ED providers. TRAVEL OUTSIDE OF THE [place] IN LAST 30 DAYS: No - Related Data Allergies/Adverse Reactions: shellfish derived Allergy (Verified 04/10/20 20:50) bee sting Allergy (Uncoded 04/10/20 20:50) Past Medical History - Past Medical History Cardiac Medical History: Reports: Hx Hypercholesterolemia, Hx Hypertension Pulmonary Medical History: Reports: Hx Sleep Apnea Neurological Medical History: Reports: Hx Seizures Renal/ Medical History: Denies: Hx Peritoneal Dialysis Psychiatric Medical History: Denies: Hx Depression Past Surgical History: Reports: Hx Hysterectomy, Hx Orthopedic Surgery - lt knee, Other - unknown Physical Exam - Vital signs Vitals: Temp Pulse Resp BP Pulse Ox 101.2 F H 110 H 20 125/92 H 98 04/22/20 19:41 04/22/20 19:41 04/22/20 19:41 04/22/20 19:41 04/22/20 19:41 Course - Vital Signs Vital signs: Temp Pulse Resp BP Pulse Ox 99.5 F 109 H 16 125/92 H 96 04/22/20 19:57 04/22/20 19:57 04/22/20 19:57 04/22/20 19:41 04/22/20 19:57 Doctor's Discharge - Discharge Referrals: LUIS FERNÁNDEZ MD [Primary Care Provider] - Follow up as needed
[2020-04-22 20:39] LABS: ABSOLUTE MONOCYTES (AUTO) 1.1 10^3/uL (0.1-1.4); ABSOLUTE NEUT (AUTO) 4.3 10^3/uL (1.7-8.2); BASOPHILS % (AUTO) 0.4 % (0-2); EOSINOPHILS % (AUTO) 0.4 % (0-6); HEMATOCRIT 38.8 % (36.0-47.0); HEMOGLOBIN 13.3 g/dL (12.0-15.5); LYMPHOCYTES % (AUTO) 15.3 % (13-45); MEAN CORPUSCULAR HGB CONC 34.2 g/dL (32.0-36.0); MEAN CORPUSCULAR VOLUME 79 fl (80-97); MONOCYTES % (AUTO) 16.8 % (3-13); PLATELET COUNT 182 10^3/uL (150-450); RED BLOOD COUNT 4.92 10^6/uL (3.72-5.28); RED CELL DISTRIBUTION WIDTH 14.4 % (11.5-14.0); SEGMENTED NEUTROPHILS % (AUTO) 67.1 % (42-78); TOTAL CELLS COUNTED % (AUTO) 100 %; WHITE BLOOD COUNT 6.5 10^3/uL (4.0-10.5)
[2020-04-22 20:47] LABS: INTERNATIONAL RATION (INR) 1.43; PROTHROMBIN TIME 17.6 SEC (11.4-15.4)
[2020-04-22 20:48] LABS: PARTIAL THROMBOPLASTIN TIME 31.5 SEC (23.5-35.8)
[2020-04-22 20:52] LABS: ALBUMIN 3.8 g/dL (3.5-5.0); ALKALINE PHOSPHATASE 51 U/L (38-126); ANION GAP 9 (5-19); ASPARTATE AMINO TRANSFERASE 36 U/L (14-36); BILIRUBIN,DIRECT 0.3 mg/dL (0.0-0.4); BILIRUBIN,TOTAL 0.5 mg/dL (0.2-1.3); BLOOD UREA NITROGEN 9 mg/dL (7-20); CALCIUM 9.1 mg/dL (8.4-10.2); CARBON DIOXIDE 29 mmol/L (22-30); CHLORIDE 100 mmol/L (98-107); GLUCOSE 117 mg/dL (75-110); POTASSIUM 3.5 mmol/L (3.6-5.0); TOTAL PROTEIN 7.6 g/dL (6.3-8.2)
--- NOTE | 2020-04-22 23:15 | ER Document Report ---
ED General - General Chief Complaint: Other Stated Complaint: BLEEDING AT PIC LINE/PORT Time Seen by Provider: 04/22/20 19:51 Primary Care Provider: LUIS FERNÁNDEZ MD [Primary Care Provider] - Follow up as needed STACY REEDER JR, DO [ACTIVE PROVISIONAL STAFF] - Follow up as needed Mode of Arrival: Wheelchair Information source: Patient TRAVEL OUTSIDE OF THE [place] IN LAST 30 DAYS: No - HPI Notes: Patient is a 55-year-old female presents for bleeding from her PICC line. Patient had an I&D and washout of her right middle finger 1 week ago and had a PICC line placed for antibiotic administration. She is taking cefepime 2g over 30 minutes every 12 hours. Patient states she has been compliant with her medication. She presents today because she noticed blood in her PICC line and became concerned. Patient denies fever, chills, nausea, and vomiting. She denies pain, swelling and redness to the area surrounding her PICC line as well as her right hand. Patient states she has had the PICC line in place for 1 week and is scheduled to have it for another 3 weeks. - Related Data Allergies/Adverse Reactions: shellfish derived Allergy (Verified 04/10/20 20:50) bee sting Allergy (Uncoded 04/10/20 20:50) Past Medical History - General Information source: Patient - Social History Smoking Status: Current Every Day Smoker Family History: Reviewed & Not Pertinent Patient has homicidal ideation: No - Past Medical History Cardiac Medical History: Reports: Hx Hypercholesterolemia, Hx Hypertension Pulmonary Medical History: Reports: Hx Sleep Apnea Neurological Medical History: Reports: Hx Seizures Renal/ Medical History: Denies: Hx Peritoneal Dialysis Psychiatric Medical History: Denies: Hx Depression Past Surgical History: Reports: Hx Hysterectomy, Hx Orthopedic Surgery - lt knee, Other - unknown Review of Systems - Review of Systems Constitutional: No symptoms reported EENT: No symptoms reported Cardiovascular: No symptoms reported Respiratory: No symptoms reported Gastrointestinal: No symptoms reported Genitourinary: No symptoms reported Female Genitourinary: No symptoms reported Skin: See HPI Hematologic/Lymphatic: No symptoms reported Neurological/Psychological: No symptoms reported Physical Exam - Vital signs Vitals: Temp Pulse Resp BP Pulse Ox 101.2 F H 110 H 20 125/92 H 98 04/22/20 19:41 04/22/20 19:41 04/22/20 19:41 04/22/20 19:41 04/22/20 19:41 - Notes Notes: PHYSICAL EXAMINATION: GENERAL: Well-appearing, well-nourished and in no acute distress. HEAD: Atraumatic, normocephalic. EYES: Pupils equal round and reactive to light, extraocular movements intact, sclera anicteric, conjunctiva are normal. ENT: nares patent, oropharynx clear without exudates. Moist mucous membranes. NECK: Normal range of motion, supple without lymphadenopathy LUNGS: Breath sounds clear to auscultation bilaterally and equal. No wheezes rales or rhonchi. HEART: Regular rate and rhythm without murmurs ABDOMEN: Soft, nontender, normoactive bowel sounds. No guarding, no rebound. No masses appreciated. EXTREMITIES: No erythema or edema surrounding her PICC line. Right middle finger is wrapped with stitches in place over middle A1 zulema. No erythema or edema noted to the right hand. Normal range of motion, no pitting or edema. No cyanosis. NEUROLOGICAL: No focal neurological deficits. Moves all extremities spontaneously and on command. PSYCH: Normal mood, normal affect. SKIN: Warm, Dry, normal turgor, no rashes or lesions noted. Course - Re-evaluation Re-evalutation: Patient is a 55-year-old female who presents for bleeding from her PICC line. Patient had PICC line placed a week ago after a washout of the right hand. She noticed blood in the line earlier today which prompted her to come to the ED. Upon arrival patient had a temperature of 101.2 F but temperature was retaken 16 minutes later and her temp was 99.5 F. No erythema or swelling is noted to the area around the PICC line as well as to the right hand. Blood cultures were ordered. I talked with Dr. Reeder concerning this patient. He reports no concern as long as she follows up in office at her scheduled appointment this week. Patient will be discharged home with return precautions. I discussed with her the importance of following up this week with her orthopedic surgeon. - Vital Signs Vital signs: Temp Pulse Resp BP Pulse Ox 97.6 F 88 16 111/71 99 04/23/20 00:06 04/23/20 00:06 04/23/20 00:06 04/23/20 00:06 04/23/20 00:06 - Laboratory Result Diagrams: 04/22/20 20:15 04/22/20 20:15 Laboratory results interpreted by me: 04/22/20 04/22/20 04/22/20 20:15 20:15 20:15 MCV 79 L RDW 14.4 H [place] % (Auto) 16.8 H PT 17.6 H Potassium 3.5 L Glucose 117 H ALT 49 H Discharge - Discharge Clinical Impression: PICC (peripherally inserted central catheter) in place Fever Qualifiers: Fever type: unspecified Qualified Code(s): R50.9 - Fever, unspecified Condition: Stable Disposition: HOME, SELF-CARE Additional Instructions: Your PICC line and right hand do not appear to be infected today. Follow up with your orthopedic surgeon this week to have them recheck your PICC lines. You should return if you develop fevers with temperature greater than 101, worsening redness to you right hand or surrounding your PICC line, persistent vomiting, worsening pain, or have any other symptoms that are concerning to you. Referrals: LUIS FERNÁNDEZ MD [Primary Care Provider] - Follow up as needed STACY REEDER JR, DO [ACTIVE PROVISIONAL STAFF] - Follow up as needed
[2020-04-23 00:10] VITALS: BP 111/71
== END 2020-04-23 00:11 | disposition home or self-care (01) ==
LOC: ER 19:36
DX: T82.898A Other specified complication of vascular prosthetic devices, implants and grafts, initial encounter (principal); R50.9 Fever, unspecified; X58.XXXA Exposure to other specified factors, initial encounter; F17.200 Nicotine dependence, unspecified, uncomplicated; E78.00 Pure hypercholesterolemia, unspecified; I10 Essential (primary) hypertension; Z90.710 Acquired absence of both cervix and uterus
CPT/HCPCS: 36415; 80053; 85025; 85610; 85730; 87040; 99283

== ENCOUNTER 2020-04-24 09:58 | Inpatient (IN) | payer BC, MEDICAID ==
--- NOTE | 2020-04-24 10:43 | ER Document Report ---
ED Medical Screen (RME) - General Stated Complaint: IV ISSUE Time Seen by Provider: 04/24/20 10:35 Primary Care Provider: LUIS FERNÁNDEZ MD [Primary Care Provider] - Follow up as needed Notes: 55-year-old female presents to ED for complaint of bleeding from her PICC line. Patient states that she was bleeding from her PICC line so she went to Dr. Fernández today and he sent her to the emergency room for complications for the PICC line. She states she is supposed to give herself antibiotics x4 weeks through her PICC line due to surgery on her right middle finger for an abscess that was repaired by Dr. Arthur. Patient is alert and oriented. PICC line seems to be intact at this time. Patient was seen on 04/22/2020 for the same problem. I have greeted and performed a rapid initial assessment of this patient. A comprehensive ED assessment and evaluation of the patient, analysis of test results and completion of medical decision making process will be conducted by an additional ED providers. TRAVEL OUTSIDE OF THE [place] IN LAST 30 DAYS: No - Related Data Allergies/Adverse Reactions: No Known Drug Allergies Allergy (Verified 04/24/20 10:37) shellfish derived Allergy (Verified 04/24/20 10:35) bee sting Allergy (Uncoded 04/24/20 10:35) Past Medical History - Past Medical History Cardiac Medical History: Reports: Hx Hypercholesterolemia, Hx Hypertension Pulmonary Medical History: Reports: Hx Sleep Apnea Neurological Medical History: Reports: Hx Seizures Renal/ Medical History: Denies: Hx Peritoneal Dialysis Psychiatric Medical History: Denies: Hx Depression Past Surgical History: Reports: Hx Hysterectomy, Hx Orthopedic Surgery - lt knee, Other - unknown Physical Exam - Vital signs Vitals: Temp Pulse Resp BP Pulse Ox 100.0 F 127 H 18 111/82 96 04/24/20 10:12 04/24/20 10:12 04/24/20 10:12 04/24/20 10:12 04/24/20 10:12 Course - Vital Signs Vital signs: Temp Pulse Resp BP Pulse Ox 100.0 F 127 H 18 111/82 96 04/24/20 10:12 04/24/20 10:12 04/24/20 10:12 04/24/20 10:12 04/24/20 10:12 Doctor's Discharge - Discharge Referrals: LUIS FERNÁNDEZ MD [Primary Care Provider] - Follow up as needed
[2020-04-24] MEDS ORDERED: ACETAMINOPHEN 325 MG TABLET PO ONE (12:45)
[2020-04-24] MEDS ORDERED: VANCOMYCIN HCL INJ 1000 MG VIAL IV ONE (12:48)
[2020-04-24] MEDS ORDERED: NORMAL SALINE 1000 ML 1,000 ML IV ONE ×2 (12:48→16:15)
--- NOTE | 2020-04-24 13:40 | RADIOLOGY REPORT (SQ) ---
EXAM DESCRIPTION: CHEST SINGLE VIEW IMAGES COMPLETED DATE/TIME: 04/24/2020 1:17 pm REASON FOR STUDY: tachycardia COMPARISON: 06/17/2019 EXAM PARAMETERS: NUMBER OF VIEWS: One view. TECHNIQUE: Single frontal radiographic view of the chest acquired. RADIATION DOSE: NA LIMITATIONS: None. FINDINGS: LUNGS AND PLEURA: There is slight haziness in the left base. The left hemidiaphragm is bl urred. This is a new finding. MEDIASTINUM AND HILAR STRUCTURES: No masses. Contour normal. HEART AND VASCULAR STRUCTURES: Heart normal in size. Normal vasculature. BONES: No acute findings. HARDWARE: None in the chest. OTHER: No other significant finding. IMPRESSION: Cannot exclude limited airspace disease in the left base, pneumonia versus atelectasis. TECHNICAL DOCUMENTATION: JOB ID: [id number] [employer]- All Rights Reserved Reading location - IP/workstation name: [email or web address]
--- NOTE | 2020-04-24 13:58 | ER Document Report ---
ED General - General Information source: Patient TRAVEL OUTSIDE OF THE [place] IN LAST 30 DAYS: No - HPI Onset: Other - 2 days Onset/Duration: Persistent Quality of pain: Achy Pain Level: 3 Associated symptoms: Chest pain, Nonproductive cough, Other - Left arm pain and swelling. denies: Productive cough, Nausea, Vomiting, Shortness of breath Exacerbated by: Movement Relieved by: Denies Similar symptoms previously: No Recently seen / treated by doctor: Yes <RODERICK GOMES - Last Filed: 04/24/20 20:30> <FERMIN VARGAS - Last Filed: 04/24/20 22:29> - General Chief Complaint: Other Stated Complaint: IV ISSUE Time Seen by Provider: 04/24/20 10:35 Primary Care Provider: LUIS CALIX MD [Primary Care Provider] - Follow up as needed Notes: Patient presents for left arm tenderness and redness around her PICC line. Patient states that her PICC line has been leaking blood and so she saw her primary doctor who advised her to come here for further evaluation. Patient states that she is to receive antibiotics twice a day for an infection to her right hand. Patient states she is not had any dressing changes since having her line started. (RODERICK GOMES) - Related Data Allergies/Adverse Reactions: No Known Drug Allergies Allergy (Verified 04/24/20 10:37) shellfish derived Allergy (Verified 04/24/20 10:35) bee sting Allergy (Uncoded 04/24/20 10:35) Past Medical History - General Information source: Patient - Social History Smoking Status: Current Every Day Smoker Frequency of alcohol use: None Drug Abuse: None Occupation: None Lives with: Family Family History: Reviewed & Not Pertinent Patient has homicidal ideation: No - Past Medical History Cardiac Medical History: Reports: Hx Hypercholesterolemia, Hx Hypertension Pulmonary Medical History: Reports: Hx Sleep Apnea Neurological Medical History: Reports: Hx Seizures Renal/ Medical History: Denies: Hx Peritoneal Dialysis Psychiatric Medical History: Denies: Hx Depression Past Surgical History: Reports: Hx Hysterectomy, Hx Orthopedic Surgery - lt knee, Other - unknown <RODERICK GOMES - Last Filed: 04/24/20 20:30> Review of Systems - Review of Systems Constitutional: Fever EENT: No symptoms reported Cardiovascular: denies: Chest pain Respiratory: Cough, Short of breath - Occasional Gastrointestinal: No symptoms reported. denies: Nausea, Vomiting Genitourinary: No symptoms reported Female Genitourinary: No symptoms reported Musculoskeletal: Muscle pain - Left upper extremity pain Skin: Change in color - Erythema surrounding PICC line Hematologic/Lymphatic: No symptoms reported Neurological/Psychological: No symptoms reported <RODERICK GOMES - Last Filed: 04/24/20 20:30> Physical Exam - General General appearance: Appears well, Alert In distress: None - HEENT Head: Normocephalic, Atraumatic Eyes: Normal Conjunctiva: Normal Nasal: Normal Mouth/Lips: Normal Mucous membranes: Normal - Respiratory Respiratory status: No respiratory distress Chest status: Nontender Breath sounds: Normal. No: Rales, Rhonchi, Stridor, Wheezing Chest palpation: Normal - Cardiovascular Rhythm: Tachycardia Heart sounds: S1 appreciated, S2 appreciated Murmur: No Pulses: Normal: Radial - Back Back: Normal, Nontender - Extremities General lower extremity: Normal inspection, Normal strength Arm: Other - PICC line to left upper extremity with surrounding erythema and induration at insertion site Hand: Tender - Right third finger with dressing in place, sutured laceration to palmar surface of right hand - Neurological Neuro grossly intact: Yes Cognition: Normal Orientation: AAOx4 Jose Coma Scale Eye Opening: Spontaneous Jose Coma Scale Verbal: Oriented Wilsey Coma Scale Motor: Obeys Commands Wilsey Coma Scale Total: 15 - Psychological Associated symptoms: Normal affect, Normal mood - Skin Skin Temperature: Warm Skin Moisture: Dry Skin Color: Erythema - Left upper extremity surrounding insertion of PICC line <RODERICK GOMES - Last Filed: 04/24/20 20:30> - Vital signs Vitals: Temp Pulse Resp BP Pulse Ox 100.0 F 127 H 18 111/82 96 04/24/20 10:12 04/24/20 10:12 04/24/20 10:12 04/24/20 10:12 04/24/20 10:12 Course - Laboratory Result Diagrams: 04/24/20 13:50 04/24/20 14:15 - Diagnostic Test Radiology reviewed: Image reviewed, Reports reviewed - EKG Interpretation by Me EKG shows normal: Sinus rhythm Rate: Tachycardia [place]/QRS: Left axis deviation When compared to previous EKG there are: Changes noted <RODERICK GOMES - Last Filed: 04/24/20 20:30> - Laboratory Result Diagrams: 04/24/20 13:50 04/24/20 14:15 <FERMIN VARGAS - Last Filed: 04/24/20 22:29> - Re-evaluation Re-evalutation: 04/24/20 16:20 Patient continues mildly tachycardic, additional IV fluids ordered. Call placed for consultation with patient's primary doctor given concerns about left arm infection, fever with tachycardia and possible left lower lobe pneumonia. 04/24/20 16:23 Spoke with radiologist about possibility of replacing her PICC line here today, radiologist advises that it would have to be done tomorrow she is not admitted. 04/24/20 16:29 Consulted with patient's primary doctor who advises adding on a Doppler of the left upper extremity, he also recommends possible imaging of the chest to evaluate for any possible PE given patient's persistent tachycardia. He advises returning call once results are back to discuss potential need for admission. 04/24/20 18:21 Preliminary Doppler study is positive for DVT to the left upper extremity that extends to the neck area, Dr. Calix advised of this finding. He is requesting that a CTA be performed. Patient reports an allergy to shellfish although review of previous history demonstrates she has had IV contrast in the past without adverse reaction. Patient with limited vascular access, nursing staff report difficulty obtaining 22-gauge to the right antecubital area. Nuclear med tar processing technician here and is able to take patient for the VQ study at this time, will proceed with the study as we will need to attempt to get appropriate vascular access for CTA. 04/24/20 19:08 Nursing staff was able to get access for CTA, CT advised of premedication orders so that they can coordinate with nursing staff prior to patient's imaging. 04/24/20 19:[address] meyer who advises holding on any anticoagulation until CTA results are back to better guide care. 04/24/20 20:09 Report and handoff given to SHELLI Will 04/24/20 20:20 Will start heparin drip at this time, as VQ scan shows findings worrisome for likely pulmonary embolism (RODERICK GOMES) 04/24/20 21:05 CTA showing mediastinal mass without good flow in the subclavian vein. No overt DVT or pneumonia is seen. Patient has been started on heparin. I called and spoke with Dr. Crowder. Patient will likely require additional imaging and possibly even biopsy, however only recommendation at this time is anticoagulation with heparin or Lovenox and oncology consult. I did discuss details with patient, pending callback from Dr. Calix. 04/24/20 21:[address] Cailx. He states that based on looking at the images he is not completely convinced that this is a mass, he states he is worried this is a clot and patient may need intervention by vascular specialty. He states he recommends I speak with vascular surgery first because they may recommend transfer and intervention. I called and spoke with transfer center, pending call back. 04/24/20 22:[address] Curiel, vascular surgery at [facility]. I discussed patient's physical exam (very swollen arm especially in the left upper extremity with pain), her venous Doppler, and a CTA which he was able to review. He states based on the evaluation he does not see any reason for vascular intervention, he recommends Amish wrap to the upper extremity, elevation above the heart on pillows, and a heparin drip. He does not recommend transfer, he recommends hospital admission for this to be performed. In addition to this transfer center tells me that there are hospital is at full capacity and is on diversion. 04/24/20 22:[address] Calix again, patient accepted to [facility] full admission, he requests a consult be placed for Dr. Crowder and for patient to be given a dose of Keppra now. (FERMIN VARGAS) - Vital Signs Vital signs: Temp Pulse Resp BP Pulse Ox 99.6 F 127 H 9 L 129/90 H 85 L 04/24/20 15:30 04/24/20 10:12 04/24/20 20:05 04/24/20 19:28 04/24/20 21:00 - Laboratory Laboratory results interpreted by me: 04/24/20 04/24/20 04/24/20 13:50 13:50 14:15 MCH 26.8 L RDW 14.6 H Lymphocytes % (Manual) 9 L Monocytes % (Manual) 21 H Abs Monocytes (Manual) 1.8 H PT 18.5 H VBG HCO3 Sodium 136.6 L 04/24/20 14:15 MCH RDW Lymphocytes % (Manual) Monocytes % (Manual) Abs Monocytes (Manual) PT VBG HCO3 32.5 H Sodium - EKG Interpretation by Me Additional EKG results interpreted by me: 04/24/20 16:06 Sinus tachycardia rate of 105, QTc 476 (RODERICK GOMES) Discharge <RODERICK GOMES - Last Filed: 04/24/20 20:30> - Discharge Admitting Provider: [facility] Admitted: [facility] <FERMIN VARGAS - Last Filed: 04/24/20 22:29> - Discharge Clinical Impression: Left arm swelling, Mediastinal mass DVT (deep venous thrombosis) Qualifiers: DVT location: upper extremity Affected thrombotic vein of extremity: unspecified vein of extremity Chronicity: acute Laterality: left Qualified Code(s): I82.622 - Acute embolism and thrombosis of deep veins of left upper extremity Condition: Stable Disposition: ADMITTED INPATIENT Referrals: LUIS CALIX MD [Primary Care Provider] - Follow up as needed
[2020-04-24 14:37] LABS: VENOUS BLOOD BASE EXCESS 6.6 mmol/L; VENOUS BLOOD HCO3 32.5 mmol/L (20-32); VENOUS BLOOD PCO2 51.8 mmHg (35-63); VENOUS BLOOD PH 7.42 (7.30-7.42)
[2020-04-24 14:42] LABS: HEMOGLOBIN 13.2 g/dL (12.0-15.5); INTERNATIONAL RATION (INR) 1.52; PROTHROMBIN TIME 18.5 SEC (11.4-15.4)
[2020-04-24 14:52] LABS: HEMATOCRIT 39.1 % (36.0-47.0); MEAN CORPUSCULAR HEMOGLOBIN 26.8 pg (27.0-33.4); MEAN CORPUSCULAR HGB CONC 33.7 g/dL (32.0-36.0); MEAN CORPUSCULAR VOLUME 80 fl (80-97); PLATELET COUNT 190 10^3/uL (150-450); RED BLOOD COUNT 4.91 10^6/uL (3.72-5.28); RED CELL DISTRIBUTION WIDTH 14.6 % (11.5-14.0); WHITE BLOOD COUNT 8.8 10^3/uL (4.0-10.5)
[2020-04-24 14:58] LABS: ALBUMIN 3.7 g/dL (3.5-5.0); ALKALINE PHOSPHATASE 52 U/L (38-126); ANION GAP 9 (5-19); ASPARTATE AMINO TRANSFERASE 21 U/L (14-36); BILIRUBIN,DIRECT 0.3 mg/dL (0.0-0.4); BILIRUBIN,TOTAL 0.6 mg/dL (0.2-1.3); BLOOD UREA NITROGEN 8 mg/dL (7-20); CALCIUM 8.9 mg/dL (8.4-10.2); CARBON DIOXIDE 30 mmol/L (22-30); CHLORIDE 98 mmol/L (98-107); GLUCOSE 100 mg/dL (75-110); POTASSIUM 3.6 mmol/L (3.6-5.0); TOTAL PROTEIN 7.7 g/dL (6.3-8.2)
[2020-04-24 15:00] LABS: ABSOLUTE LYMPHOCYTES# (MANUAL) 0.8 10^3/uL (0.5-4.7); ABSOLUTE MONOCYTES # (MANUAL) 1.8 10^3/uL (0.1-1.4); BASOPHILS % (MANUAL) 0 % (0-2); EOSINOPHILS % (MANUAL) 0 % (0-6); LYMPHOCYTES % (MANUAL) 9 % (13-45); MONOCYTES % (MANUAL) 21 % (3-13); SEGMENTED NEUTROPHILS % (MAN) 70 % (42-78); TOTAL CELLS COUNTED 100
[2020-04-24 15:03] LABS: ANISOCYTOSIS SLIGHT; HYPOCHROMASIA SLIGHT; PLATELET COMMENT ADEQUATE; PLATELET LARGE PRESENT
[2020-04-24] MEDS ORDERED: CEFEPIME 2 GM/D5W RTU 2 GM/50 ML RTUPB IV ONE (17:46)
[2020-04-24] MEDS ORDERED: METHYLPREDNISOLONE INJ 125 MG/2 ML SDV IV ONE (19:05)
[2020-04-24] MEDS ORDERED: DIPHENHYDRAMINE HCL 50 MG/ML VIAL IV ONE (19:06)
[2020-04-24] MEDS ORDERED: FAMOTIDINE INJ/PF 20 MG/2 ML SDV IV ONE (19:06)
--- NOTE | 2020-04-24 19:11 | RADIOLOGY REPORT (SQ) ---
EXAM DESCRIPTION: NM LUNG PERFUSION SCAN IMAGES COMPLETED DATE/TIME: 04/24/2020 6:49 pm REASON FOR STUDY: tachycardia COMPARISON: 04/24/2020 RADIONUCLIDE AND DOSE: 5.35 millicuries TC-99m MAA The route of agent administration: Intravenous TECHNIQUE: Eight views of the lungs acquired following injection of MAA. LIMITATIONS: None. FINDINGS: PERFUSION: There is a subtle wedge-shaped defect within the anterior left upper lobe which persists on SRUTHI, left lateral, and LPO projections. OTHER: No other significant finding. IMPRESSION: Limited to perfusion imaging. A subtle wedge-shaped defect seen within the anterior lef t upper lobe may represent embolic disease. TECHNICAL DOCUMENTATION: JOB ID: [id number] 2010 [employer]- All Rights Reserved Reading location - IP/workstation name: [email or web address]
--- NOTE | 2020-04-24 19:18 | RADIOLOGY REPORT (SQ) ---
EXAM DESCRIPTION: VENOUS UNILATERAL UPPER IMAGES COMPLETED DATE/TIME: 04/24/2020 7:05 pm REASON FOR STUDY: LUE swelling, recent site of PICC line COMPARISON: None. TECHNIQUE: Dynamic and static vargas scale and color images acquired of the left arm venous system. Se lected spectral images acquired with additional compression and augmentation maneuvers. The contralat eral subclavian vein and internal jugular vein were also imaged. Images stored on PACS. LIMITATIONS: None. FINDINGS: Imaging of the various of the left arm shows acute thrombus in the internal jugular vein, subclavian, axillary, and basilic veins. There is a small amount of flow. CONTRALATERAL SUBCLAVIAN VEIN AND INTERNAL JUGULAR VEIN: Normal phasicity, compression and augmentation. No visualized echogenic material on vargas scale. No de fects on color images. IMPRESSION: Acute DVT and SVT in the left upper extremity. TECHNICAL DOCUMENTATION: JOB ID: [id number] 2010 [employer]- All Rights Reserved Reading location - IP/workstation name: [email or web address]
[2020-04-24] MEDS ORDERED: HEPARIN SOD (PORCINE) 1,000 UNIT/ML 10 ML VIAL IV ONE (20:18)
--- NOTE | 2020-04-24 20:36 | RADIOLOGY REPORT (SQ) ---
EXAM DESCRIPTION: CT CHEST ANGIOGRAPHY WITH IV CONTRAST COMPLETED DATE/TME: 04/24/2020 19:06 CLINICAL HISTORY: 55 years, Female, Tachycardia, left arm DVT COMPARISON: Chest x-ray from today. CT angiogram 11/17/2016. TECHNIQUE: Axial images with IV contrast. Contrast dose not available. MIP reconstruction. Images stored on PACS. All CT scanners at this facility use dose modulation, iterative reconstruction, and/or weight based dosing when appropriate to reduce radiation dose to as low as reasonably achievable (ALARA). FINDINGS: 28 mm nonenlarged main pulmonary artery. No evidence for central pulmonary embolism. Peripheral vessels not well evaluated secondary to motion artifact. Aorta mildly dilated 32 mm. No dissection. Mild left cardiomegaly including thickening of the left the wall. Moderate-sized diffuse anterior mediastinal mass greater on the left side. In the midline, mass measures up to 2.5 cm in AP diameter. Much larger in the longitudinal and transverse diameters. There appears to be direct extension left laterally along the expected tract of the left subclavian vein which appears significantly thickened and presumably clotted. The left subclavian artery is patent narrowed and displaced posteriorly by the mass. There is no flow detected in the left brachiocephalic vein. The right hand was injected. It is possible that delayed images with demonstrated some flow in the left subclavian and brachiocephalic vein. There is no additional mediastinal adenopathy. There is mild hiatal hernia. There is a dilated azygos vein presumably collateral. Not yet opacified on images provided. Nonspecific bibasilar atelectasis is worse on the left. No suspicious lung mass. Tiny left pleural effusion. Limited images of the upper abdomen are unremarkable. IMPRESSION: 1. No evidence for central PE. Peripheral pulmonary arteries not well evaluated due to motion artifact. 2. Diffuse mass in the anterior mediastinum greater on the left and extending towards the left infraclavicular region. Suspected large clotted left subclavian vein. There is also no obvious flow in the left brachiocephalic vein. The mass was not present on CT angiogram of the neck from 11/17/2016. Consider biopsy of the mass. Consider evaluation with MRI of the left upper chest as well as possible PET scan which may help direct the optimal location for biopsy.. 3. Small hiatal hernia. Bibasilar atelectasis. Mildly ectatic ascending aorta. Mild thickening of the left ventricle wall.
--- NOTE | 2020-04-24 20:45 | EKG REPORT ---
SEVERITY:- ABNORMAL ECG - SINUS TACHYCARDIA LEFT AXIS DEVIATION CONSIDER ANTERIOR INFARCT BORDERLINE T ABNORMALITIES, DIFFUSE LEADS : Confirmed by: Josr Rey MD 24-Apr-2020 20:44:41
[2020-04-24] MEDS: HEPARIN SODIUM,PORCINE/D5W 25,000 UNIT/250 ML RTUINJ IV PRN (21:07)
[2020-04-24] MEDS ORDERED: LEVETIRACETAM 500 MG TABLET PO ONE (22:27)
[2020-04-24] MEDS ORDERED: METRONIDAZOLE 500 MG TABLET PO ONE (22:45)
[2020-04-24] MEDS ORDERED: HEPARIN SOD (PORCINE) 1,000 UNIT/ML 10 ML VIAL IV PRN (23:19)
[2020-04-24] MEDS: NORMAL SALINE 1000 ML 1,000 ML IV PRN (23:27)
[2020-04-24 23:54] LABS: ANION GAP 7 (5-19); BLOOD UREA NITROGEN 7 mg/dL (7-20); CARBON DIOXIDE 28 mmol/L (22-30); CHLORIDE 103 mmol/L (98-107); GLUCOSE 144 mg/dL (75-110); POTASSIUM 3.7 mmol/L (3.6-5.0)
[2020-04-25] MEDS ORDERED: CEFEPIME 2 GM/D5W RTU 2 GM/50 ML RTUPB IV ONE (05:38)
[2020-04-25] MEDS ORDERED: CEFEPIME 2 GM/D5W RTU 2 GM/50 ML RTUPB IV SCH (06:00)
--- NOTE | 2020-04-25 07:48 | PDOC CONSULTATION ---
Consultation Consult Date: 04/25/20 Provider Consulted: VESTA SHER Consult reason:: Hematology/Oncology consultation was requested for patient with new DVT/PE and mediastinal mass. History of Present Illness Admission Date/PCP: 04/24/20 22:51 LUIS FERNÁNDEZ MD History of Present Illness: TANISHA MOTT is a 55 year old female who presented a few weeks ago with an infection in her hand. She is a poor historian and does not remember exactly when it started, but she was seen in the ED and surgery was performed on her hand. PICC line was placed in her left arm and she has been receiving anti biotics at home. A few days ago, her left arm began to swell and she returned to the ED last night. DVT was found as well as a Possible PE and mediastinal mass. She was admitted and started on heparin drip. This morning, she states that the arm is still painful and swollen. She has had a "little cough" and was told that she had pneumonia, but she denies any dyspnea, chest pains, fever, hemoptysis, or any evidence of a pulmonary process. Past Medical History Cardiac Medical History: Reports: Hyperlipidema, Hypertension Pulmonary Medical History: Reports: Sleep Apnea Neurological Medical History: Reports: Seizures Psychiatric Medical History: Denies: Depression Past Surgical History Past Surgical History: Reports: Hysterectomy, Orthopedic Surgery - lt knee, Other - unknown Social History Information Source: Patient Lives with: Family Smoking Status: Current Every Day Smoker Electronic Cigarette use?: No Frequency of Alcohol Use: None Hx Recreational Drug Use: No Drugs: None Hx Prescription Drug Abuse: No Family History Parental Family History Reviewed: Yes - Patient states "we don't talk about that" Children Family History Reviewed: Yes Sibling(s) Family History Reviewed.: Unknown Medication/Allergy Home Medications: Aspirin [Ecotrin 325 mg EC Tablet] 325 mg PO DAILY 04/11/20 Cetirizine HCl [Zyrtec 10 mg Tablet] 10 mg PO DAILY 04/11/20 Hydrochlorothiazide 12.5 mg PO DAILY 04/11/20 Levetiracetam [Keppra 500 mg Tablet] 1,000 mg PO Q12 04/11/20 Oxybutynin Chloride [Ditropan Xl] 10 mg PO DAILY 04/11/20 Pravastatin Sodium 40 mg PO DAILY 04/11/20 Metronidazole [Flagyl] 500 mg PO BID #60 tablet 04/16/20 Oxycodone HCl/Acetaminophen [Percocet 5-325 mg Tablet] 1 tab PO Q6 PRN #25 tab 04/16/20 Acetaminophen [Tylenol 325 mg Tablet] 975 mg PO Q8 tablet 04/17/20 Cefepime HCl [Maxipime] 2 gm IV Q12 25 Days vial.port 04/17/20 Docusate Sodium [Colace 100 mg Capsule] 100 mg PO DAILY capsule 04/17/20 Heparin Sodium,Porcine [Heparin Flush 10 Unit/ml 5 ml Disp.syrg] 30 unit IV Q12 #30 disp.syrin 04/17/20 Hydrochlorothiazide [Hydrodiuril 12.5 mg Tablet] 12.5 mg PO DAILY tablet 04/17/20 Lactobacillus Acidophilus [Bacid 250 mg Tablet] 250 mg PO BID tab 04/17/20 Metronidazole [Flagyl 500 mg Tablet] 500 mg PO Q12 25 Days tablet 04/17/20 Allergies/Adverse Reactions: No Known Drug Allergies Allergy (Verified 04/24/20 10:37) shellfish derived Allergy (Verified 04/24/20 10:35) bee sting Allergy (Uncoded 04/24/20 10:35) Review of Systems Constitutional: ABSENT: fever(s), headache(s) Eyes: ABSENT: visual disturbances Ears: ABSENT: hearing changes Nose, Mouth, and Throat: ABSENT: sore throat Cardiovascular: ABSENT: chest pain Respiratory: PRESENT: cough. ABSENT: dyspnea Gastrointestinal: ABSENT: constipation, nausea Genitourinary: ABSENT: dysuria Musculoskeletal: ABSENT: back pain Integumentary: PRESENT: as per HPI, rash Neurological: ABSENT: dizziness, weakness Psychiatric: ABSENT: depression Hematologic/Lymphatic: ABSENT: easy bleeding Physical Exam Vital Signs: Temp Pulse Resp BP Pulse Ox 97.9 F 83 20 117/88 H 98 04/25/20 03:04 04/25/20 03:04 04/25/20 03:04 04/25/20 03:04 04/25/20 03:04 Intake & Output 04/24/20 04/25/20 04/26/20 06:59 06:59 06:59 Intake Total 2721 Output Total 400 Balance 2321 Weight 111.9 kg General appearance: PRESENT: no acute distress, well-developed Exam: Overweight, 55 year old female. Head exam: PRESENT: atraumatic, normocephalic Eye exam: PRESENT: EOMI Mouth exam: PRESENT: tongue midline Neck exam: ABSENT: lymphadenopathy, tenderness Respiratory exam: PRESENT: clear to auscultation doe, unlabored Cardiovascular exam: PRESENT: RRR GI/Abdominal exam: PRESENT: soft. ABSENT: tenderness Extremities exam: PRESENT: other - Left upper extremity with edema. Right hand with healing lesions and white plaque. Musculoskeletal exam: PRESENT: normal inspection Neurological exam: PRESENT: alert, awake, oriented to person, oriented to place Psychiatric exam: PRESENT: appropriate affect Skin exam: PRESENT: normal color, rash Results Laboratory Results: 04/24/20 13:50 04/24/20 23:27 04/24/20 04/24/20 04/24/20 13:50 14:15 14:15 WBC 8.8 RBC 4.91 Hgb 13.2 Hct 39.1 MCV 80 MCH 26.8 L MCHC 33.7 RDW 14.6 H Plt Count 190 Seg Neutrophils % Not Reportable VBG pH 7.42 VBG pCO2 51.8 VBG HCO3 32.5 H VBG Base Excess 6.6 Sodium 136.6 L Potassium 3.6 Chloride 98 Carbon Dioxide 30 Anion Gap 9 BUN 8 Creatinine 0.68 Est GFR ( Amer) > 60 Glucose 100 Lactic Acid Calcium 8.9 Total Bilirubin 0.6 AST 21 Alkaline Phosphatase 52 Total Protein 7.7 Albumin 3.7 04/24/20 04/24/20 04/24/20 14:15 15:15 23:27 WBC RBC Hgb Hct MCV MCH MCHC RDW Plt Count Seg Neutrophils % VBG pH VBG pCO2 VBG HCO3 VBG Base Excess Sodium 137.8 Potassium 3.7 Chloride 103 Carbon Dioxide 28 Anion Gap 7 BUN 7 Creatinine 0.61 Est GFR ( Amer) > 60 Glucose 144 H Lactic Acid 1.6 1.9 Calcium 9.0 Total Bilirubin AST Alkaline Phosphatase Total Protein Albumin Impressions: Chest X-Ray 04/24/20 12:55 IMPRESSION: Cannot exclude limited airspace disease in the left base, pneumonia versus atelectasis. Lung Scan-VQ NM 04/24/20 16:27 IMPRESSION: Limited to perfusion imaging. A subtle wedge-shaped defect seen within the anterior left upper lobe may represent embolic disease. Venous Doppler Study 04/24/20 16:28 IMPRESSION: Acute DVT and SVT in the left upper extremity. Chest/Abdomen CTA 04/24/20 19:06 IMPRESSION: 1. No evidence for central PE. Peripheral pulmonary arteries not well evaluated due to motion artifact. 2. Diffuse mass in the anterior mediastinum greater on the left and extending towards the left infraclavicular region. Suspected large clotted left subclavian vein. There is also no obvious flow in the left brachiocephalic vein. The mass was not present on CT angiogram of the neck from 11/17/2016. Consider biopsy of the mass. Consider evaluation with MRI of the left upper chest as well as possible PET scan which may help direct the optimal location for biopsy.. 3. Small hiatal hernia. Bibasilar atelectasis. Mildly ectatic ascending aorta. Mild thickening of the left ventricle wall. Status: Image reviewed by me Assessment & Plan - Diagnosis (1) DVT (deep venous thrombosis) Qualifiers: DVT location: upper extremity Affected thrombotic vein of extremity: unspecified vein of extremity Chronicity: acute Laterality: left Qualified Code(s): I82.622 - Acute embolism and thrombosis of deep veins of left upper extremity Is this a current diagnosis for this admission?: Yes Plan: She is currently on a heparin drip. If no further interventions are planned, then OK to change to Xarelto 15 mg po BID x 21 days then 20 mg po daily for 3-6 months. I will be happy to follow her as outpatient and arrange for this. I may recommend further testing as outpatient before she finishes anticoagulation. (2) Mediastinal mass Is this a current diagnosis for this admission?: Yes Plan: I am not sure if this is related to her blood clot, or a "mass." I have discussed this with Dr. Fernández. He will discuss further with radiology, I believe repeat CT with contrast of the chest in about 4-6 weeks may be better than a biopsy now, as this may be an inflammatory process. I will defer this decision to Dr. Fernández.
[2020-04-25] MEDS: ACETAMINOPHEN 325 MG TABLET PO PRN ×2 (08:18→19:08)
--- NOTE | 2020-04-25 08:36 | RADIOLOGY REPORT (SQ) ---
EXAM DESCRIPTION: CT HEAD WITHOUT IMAGES COMPLETED DATE/TIME: 04/25/2020 7:35 am REASON FOR STUDY: hx stroke COMPARISON: None. TECHNIQUE: Axial images acquired through the brain without intravenous contrast. Images reviewed wi th bone, brain and subdural windows. Additional sagittal and coronal reconstructions were generated. Images stored on PACS. All CT scanners at this facility use dose modulation, iterative reconstruction, and/or weight based d osing when appropriate to reduce radiation dose to as low as reasonably achievable (ALARA). [facility]: Dose Right [facility]: CareDose [facility]: Dose Right [facility]: Teradose 4D [facility]: Zazzy RADIATION DOSE: CT Rad equipment meets quality standard of care and radiation dose reduction techniq ues were employed. CTDIvol: 48.6 mGy. DLP: 881 mGy-cm.mGy. LIMITATIONS: None. FINDINGS: VENTRICLES: Prominent. CEREBRUM: No masses. No hemorrhage. No midline shift. 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 Areas of l ow density in the white matter most likely due to chronic micro-vascular ischemic change. No evidenc e for acute infarction. CEREBELLUM: No masses. No hemorrhage. No alteration of density. No evidence for acute infarction. EXTRAAXIAL SPACES: Age-related involutional change. No fluid collections. No masses. ORBITS AND GLOBE: No intra- or extraconal masses. Normal contour of globe without masses. CALVARIUM: No fracture. PARANASAL SINUSES: No fluid or mucosal thickening. SOFT TISSUES: No mass or hematoma. OTHER: No other significant finding. IMPRESSION: CHRONIC CHANGES OF ATROPHY AND MICROVASCULAR ISCHEMIA. NO ACUTE PROCESS. EVIDENCE OF ACUTE STROKE: NO. TECHNICAL DOCUMENTATION: JOB ID: [id number] Quality ID # [id number]: Final reports with documentation of one or more dose reduction techniques (e.g., Au tomated exposure control, adjustment of the mA and/or kV according to patient size, use of iterative reconstruction technique) 2010 [employer]- All Rights Reserved Reading location - IP/workstation name: [email or web address]
[2020-04-25] MEDS: LEVETIRACETAM 500 MG TABLET PO SCH ×2 (09:42→17:24)
[2020-04-25] MEDS: METRONIDAZOLE 500 MG TABLET PO SCH ×2 (09:42→22:37)
--- NOTE | 2020-04-25 09:55 | PDOC H&P ---
History of Present Illness Admission Date/PCP: 04/24/20 22:51 LUIS FERNÁNDEZ MD Patient complains of: lt arm pain History of Present Illness: TANISHA MOTT is a 55 year old female This is a 55-year-old female with a history of the stroke and a history of the seizures disorders and hypertensions recently admitting in the hospital for the right middle finger infections status post surgery status post PICC line placement and IV infusion antibiotic at home Patient's went to the emergency department 2 days back because of the PICC line area was hurting and at that point patient have a blood culture was done and sent home patient is came today in the office with a complaining of for left arm pain and a PICC line area very tender to touch and patient heart rate was 127 range and discussed with the radiology and decided to send to the emergency department to rule out any DVT In the emergency department extensive work-up done including the ultrasound shows a very extensive blood clot all the way to the neck area patient was CT angiogram did not show any central pulmonary embolism but have extensive DVT in the subclavian And brachiocephalic vein area and ER physician discussed with the vascular surgeon at [facility] and suggest just the heparin and anticoagulations no need for any interventions Patient also have a mass on the subclavian area which he discussed with the oncology and discussed with the radiology order the ultrasound today to rule out other etiologies Patient also seen by the Ortho as per patient and the nurses no need for any antibiotic while the finger doing much better Patient's denied any chest pain no short of breath Past Medical History Cardiac Medical History: Reports: Hyperlipidema, Hypertension Pulmonary Medical History: Reports: Sleep Apnea Neurological Medical History: Reports: Seizures Psychiatric Medical History: Denies: Depression Past Surgical History Past Surgical History: Reports: Hysterectomy, Orthopedic Surgery - lt knee, Other - unknown Social History Information Source: Patient Lives with: Family Smoking Status: Current Every Day Smoker Electronic Cigarette use?: No Frequency of Alcohol Use: None Hx Recreational Drug Use: No Drugs: None Hx Prescription Drug Abuse: No Family History Family History: Reviewed & Not Pertinent Parental Family History Reviewed: Yes Children Family History Reviewed: Yes Sibling(s) Family History Reviewed.: Yes Medication/Allergy Home Medications: Aspirin [Ecotrin 325 mg EC Tablet] 325 mg PO DAILY 04/11/20 Cetirizine HCl [Zyrtec 10 mg Tablet] 10 mg PO DAILY 04/11/20 Hydrochlorothiazide 12.5 mg PO DAILY 04/11/20 Levetiracetam [Keppra 500 mg Tablet] 1,000 mg PO Q12 04/11/20 Oxybutynin Chloride [Ditropan Xl] 10 mg PO DAILY 04/11/20 Pravastatin Sodium 40 mg PO DAILY 04/11/20 Cefepime HCl [Maxipime] 2 gm IV Q12 25 Days vial.port 04/17/20 Docusate Sodium [Colace 100 mg Capsule] 100 mg PO DAILY capsule 04/17/20 Heparin Sodium,Porcine [Heparin Flush 10 Unit/ml 5 ml Disp.syrg] 30 unit IV Q12 #30 disp.syrin 04/17/20 Lactobacillus Acidophilus [Bacid 250 mg Tablet] 250 mg PO BID tab 04/17/20 Metronidazole [Flagyl 500 mg Tablet] 500 mg PO Q12 25 Days tablet 04/17/20 Allergies/Adverse Reactions: No Known Drug Allergies Allergy (Verified 04/24/20 10:37) shellfish derived Allergy (Verified 04/24/20 10:35) bee sting Allergy (Uncoded 04/24/20 10:35) Review of Systems Constitutional: ABSENT: chills, fever(s), headache(s), weight gain, weight loss Eyes: ABSENT: visual disturbances Ears: ABSENT: hearing changes Cardiovascular: ABSENT: chest pain, dyspnea on exertion, edema, orthropnea, palpitations Respiratory: ABSENT: cough, hemoptysis Gastrointestinal: ABSENT: abdominal pain, constipation, diarrhea, hematemesis, hematochezia, nausea, vomiting Genitourinary: ABSENT: dysuria, hematuria Musculoskeletal: ABSENT: joint swelling Integumentary: ABSENT: rash, wounds Neurological: ABSENT: abnormal gait, abnormal speech, confusion, dizziness, focal weakness, syncope Psychiatric: ABSENT: anxiety, depression, homidical ideation, suicidal ideation Endocrine: ABSENT: cold intolerance, heat intolerance, menstrual abnormalities, polydipsia, polyuria Hematologic/Lymphatic: ABSENT: easy bleeding, easy bruising, lymphadenopathy Physical Exam Vital Signs: Temp Pulse Resp BP Pulse Ox 97.5 F 62 16 125/87 H 97 04/25/20 07:41 04/25/20 07:41 04/25/20 07:41 04/25/20 07:41 04/25/20 07:41 Intake & Output 04/24/20 04/25/20 04/26/20 06:59 06:59 06:59 Intake Total 2721 Output Total 400 Balance 2321 Weight 111.9 kg General appearance: PRESENT: no acute distress, well-developed, well-nourished Head exam: PRESENT: atraumatic, normocephalic Eye exam: PRESENT: conjunctiva pink, EOMI, PERRLA. ABSENT: scleral icterus Ear exam: PRESENT: normal external ear exam Mouth exam: PRESENT: moist, tongue midline Neck exam: PRESENT: full ROM. ABSENT: carotid bruit, JVD, lymphadenopathy, thyromegaly Respiratory exam: PRESENT: clear to auscultation doe Cardiovascular exam: PRESENT: RRR, tachycardia. ABSENT: diastolic murmur, rubs, systolic murmur Pulses: PRESENT: normal dorsalis pedis pul, +2 pedal pulses bilateral Vascular exam: PRESENT: normal capillary refill GI/Abdominal exam: PRESENT: normal bowel sounds, soft. ABSENT: distended, guarding, mass, organolmegaly, rebound, tenderness Rectal exam: PRESENT: deferred Additional comments: Left upper extremity significant tenderness in the PICC line area is present Musculoskeletal exam: PRESENT: ambulatory Neurological exam: PRESENT: alert, awake, oriented to person, oriented to place, oriented to time, oriented to situation, CN II-XII grossly intact. ABSENT: motor sensory deficit Psychiatric exam: PRESENT: appropriate affect, normal mood. ABSENT: homicidal ideation, suicidal ideation Skin exam: PRESENT: dry, intact, warm. ABSENT: cyanosis, rash Results Laboratory Results: 04/24/20 13:50 04/24/20 23:27 04/24/20 04/24/20 04/24/20 13:50 14:15 14:15 WBC 8.8 RBC 4.91 Hgb 13.2 Hct 39.1 MCV 80 MCH 26.8 L MCHC 33.7 RDW 14.6 H Plt Count 190 Seg Neutrophils % Not Reportable VBG pH 7.42 VBG pCO2 51.8 VBG HCO3 32.5 H VBG Base Excess 6.6 Sodium 136.6 L Potassium 3.6 Chloride 98 Carbon Dioxide 30 Anion Gap 9 BUN 8 Creatinine 0.68 Est GFR ( Amer) > 60 Glucose 100 Lactic Acid Calcium 8.9 Total Bilirubin 0.6 AST 21 Alkaline Phosphatase 52 Total Protein 7.7 Albumin 3.7 04/24/20 04/24/20 04/24/20 14:15 15:15 23:27 WBC RBC Hgb Hct MCV MCH MCHC RDW Plt Count Seg Neutrophils % VBG pH VBG pCO2 VBG HCO3 VBG Base Excess Sodium 137.8 Potassium 3.7 Chloride 103 Carbon Dioxide 28 Anion Gap 7 BUN 7 Creatinine 0.61 Est GFR ( Amer) > 60 Glucose 144 H Lactic Acid 1.6 1.9 Calcium 9.0 Total Bilirubin AST Alkaline Phosphatase Total Protein Albumin Impressions: Chest X-Ray 04/24/20 12:55 IMPRESSION: Cannot exclude limited airspace disease in the left base, pneumonia versus atelectasis. Lung Scan-VQ NM 04/24/20 16:27 IMPRESSION: Limited to perfusion imaging. A subtle wedge-shaped defect seen within the anterior left upper lobe may represent embolic disease. Venous Doppler Study 04/24/20 16:28 IMPRESSION: Acute DVT and SVT in the left upper extremity. Chest/Abdomen CTA 04/24/20 19:06 IMPRESSION: 1. No evidence for central PE. Peripheral pulmonary arteries not well evaluated due to motion artifact. 2. Diffuse mass in the anterior mediastinum greater on the left and extending towards the left infraclavicular region. Suspected large clotted left subclavian vein. There is also no obvious flow in the left brachiocephalic vein. The mass was not present on CT angiogram of the neck from 11/17/2016. Consider biopsy of the mass. Consider evaluation with MRI of the left upper chest as well as possible PET scan which may help direct the optimal location for biopsy.. 3. Small hiatal hernia. Bibasilar atelectasis. Mildly ectatic ascending aorta. Mild thickening of the left ventricle wall. Head CT 04/25/20 07:45 IMPRESSION: CHRONIC CHANGES OF ATROPHY AND MICROVASCULAR ISCHEMIA. NO ACUTE PROCESS. EVIDENCE OF ACUTE STROKE: NO. Assessment & Plan - Diagnosis (1) DVT (deep venous thrombosis) Qualifiers: DVT location: upper extremity Affected thrombotic vein of extremity: unspecified vein of extremity Chronicity: acute Laterality: left Qualified Code(s): I82.622 - Acute embolism and thrombosis of deep veins of left upper extremity Is this a current diagnosis for this admission?: Yes Plan: Consult to hematology as per discussed with the senior counsel continues to Heparin drip and was switched to the Xarelto patients can discharge home (2) Left arm swelling Is this a current diagnosis for this admission?: Yes Plan: Due to the above conditions (3) Mediastinal mass Is this a current diagnosis for this admission?: Yes Plan: Discussed with the oncology about mediastinal mass and discussed with radiology getting the ultrasound (4) Acute bacterial paronychia Is this a current diagnosis for this admission?: Yes Plan: Status post surgery currently doing better we will follow-up with the orthopedic surgeon (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 Is this a current diagnosis for this admission?: Yes (6) Hypertension Qualifiers: Hypertension type: unspecified Qualified Code(s): I10 - Essential (primary) hypertension Is this a current diagnosis for this admission?: Yes (7) Left sided cerebral hemisphere cerebrovascular accident (CVA) Is this a current diagnosis for this admission?: Yes (8) Prediabetes Is this a current diagnosis for this admission?: Yes (9) Seizure disorder Is this a current diagnosis for this admission?: Yes Plan: Continues to current seizures medications - Time Time Spent: 50 to 70 Minutes Medications reviewed and adjusted accordingly: Yes Anticipated Discharge Disposition: Home with Home Health Anticipated Discharge Timeframe: within 48 hours - Inpatient Certification Based on my medical assessment, after consideration of the patient's comorbidities, presenting symptoms, or acuity I expect that the services needed warrant INPATIENT care.: Yes I certify that my determination is in accordance with my understanding of Medicare's requirements for reasonable and necessary INPATIENT services [42 CFR 412.3e].: Yes Medical Necessity: Failure to Improve With Outpatient Therapy, Significant Comorbidiites Make Outpatient Treatment Too Risky, Need For IV Fluids, Need for Pain Control, Need for IV Antibiotics 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
[2020-04-25] MEDS: HEPARIN SODIUM,PORCINE/D5W 25,000 UNIT/250 ML RTUINJ IV PRN ×2 (10:13→16:31)
--- NOTE | 2020-04-25 10:18 | PDOC CONSULTATION ---
Consultation Consult Date: 04/25/20 Provider Consulted: STACY REEDER JR History of Present Illness Admission Date/PCP: 04/24/20 22:51 LUIS FERNÁNDEZ MD History of Present Illness: TANISHA MOTT is a 55 year old female who presents for concern of infection on her PICC line on the left arm. She had a history of right middle finger infection and tenosynovitis that was treated with 2 different debridements on approximately 04/12 and 04/14. Since that time she is reported considerable improvement in her right finger. She has ongoing stiffness and has not yet proceeded with occupational therapy. She is supposed to follow-up with Dr. Hawkins this week. Due to ongoing concern for pain in the PIC line site she presented to the emergency department where they have admitted her for further work-up. The right finger continues to improve without signs of further drainage. She has been doing appropriate wound management at home on her own in the interval. She has had no recent fevers or recurrent swelling in the finger. Past Medical History Cardiac Medical History: Reports: Hyperlipidema, Hypertension Pulmonary Medical History: Reports: Sleep Apnea Neurological Medical History: Reports: Seizures Psychiatric Medical History: Denies: Depression Past Surgical History Past Surgical History: Reports: Hysterectomy, Orthopedic Surgery - lt knee, Other - unknown Social History Lives with: Family Smoking Status: Current Every Day Smoker Electronic Cigarette use?: No Frequency of Alcohol Use: None Hx Recreational Drug Use: No Drugs: None Hx Prescription Drug Abuse: No Family History Family History: Reviewed & Not Pertinent Parental Family History Reviewed: No Children Family History Reviewed: NA Sibling(s) Family History Reviewed.: NA Medication/Allergy Home Medications: Aspirin [Ecotrin 325 mg EC Tablet] 325 mg PO DAILY 04/11/20 Cetirizine HCl [Zyrtec 10 mg Tablet] 10 mg PO DAILY 04/11/20 Hydrochlorothiazide 12.5 mg PO DAILY 04/11/20 Levetiracetam [Keppra 500 mg Tablet] 1,000 mg PO Q12 04/11/20 Oxybutynin Chloride [Ditropan Xl] 10 mg PO DAILY 04/11/20 Pravastatin Sodium 40 mg PO DAILY 04/11/20 Cefepime HCl [Maxipime] 2 gm IV Q12 25 Days vial.port 04/17/20 Docusate Sodium [Colace 100 mg Capsule] 100 mg PO DAILY capsule 04/17/20 Heparin Sodium,Porcine [Heparin Flush 10 Unit/ml 5 ml Disp.syrg] 30 unit IV Q12 #30 disp.syrin 04/17/20 Lactobacillus Acidophilus [Bacid 250 mg Tablet] 250 mg PO BID tab 04/17/20 Metronidazole [Flagyl 500 mg Tablet] 500 mg PO Q12 25 Days tablet 04/17/20 Allergies/Adverse Reactions: No Known Drug Allergies Allergy (Verified 04/24/20 10:37) shellfish derived Allergy (Verified 04/24/20 10:35) bee sting Allergy (Uncoded 04/24/20 10:35) Review of Systems Review of Systems: Constitutional: ABSENT: anorexia, chills, night sweats Cardiovascular: ABSENT: chest pain Respiratory: ABSENT: dyspnea Gastrointestinal: ABSENT: vomiting Genitourinary: ABSENT: dysuria Integumentary: ABSENT: rash Neurological: ABSENT: confusion, memory loss, numbness Psychiatric: ABSENT: hallucinations Hematologic/Lymphatic: ABSENT: easy bleeding All negative as above aside from that reported in the HPI and the following: Left brachial pain swelling erythema and feelings of malaise associated potential infection. Physical Exam Vital Signs: Temp Pulse Resp BP Pulse Ox 97.5 F 62 16 125/87 H 97 04/25/20 07:41 04/25/20 07:41 04/25/20 07:41 04/25/20 07:41 04/25/20 07:41 Intake & Output 04/24/20 04/25/20 04/26/20 06:59 06:59 06:59 Intake Total 2721 Output Total 400 Balance 2321 Weight 111.9 kg Physical Exam: General appearance: PRESENT: no acute distress, cooperative, morbidly obese Head exam: PRESENT: atraumatic, normocephalic Eye exam: PRESENT: EOMI Ear exam: PRESENT: normal external ear exam Mouth exam: PRESENT: neck supple Neck exam: ABSENT: tracheal deviation Respiratory exam: PRESENT: symmetrical, unlabored. ABSENT: accessory muscle use, wheezes Pulses: PRESENT: normal radial pulses, normal dorsalis pedis pulse Vascular exam: PRESENT: normal capillary refill GI/Abdominal exam: ABSENT: distended, firm Extremities exam: PRESENT: full ROM of bilateral shoulders, elbows wrists, knees, hips and ankles without pain Musculoskeletal exam: PRESENT: full ROM, normal inspection of all 4 extremities aside from that noted below. Neurological exam: PRESENT: alert, awake, oriented to person, oriented to place, oriented to time Psychiatric exam: PRESENT: appropriate affect. ABSENT: agitated Focused psych exam: ABSENT: catatonic Skin exam: PRESENT: intact. ABSENT: dry All as above aside from that noted in the HPI and the following: The right finger has considerably decreased in swelling. She is unable to perform a full mass spectrometry specialist at this time due to stiffness in the MCP PIP and DIP joint. The distal finger appears healthy with improved healing no signs of infection no drainage no erythema. The tenderness is much less than when I had previously examined her approximately 2 weeks ago. The fingers neurovascular intact The left brachial area is tender to the touch, warm, swollen, the left upper extremity is neurovascular intact. No fluctuance or palpable mass palpated in the brachial area. Results Laboratory Results: 04/24/20 13:50 04/24/20 23:27 04/24/20 04/24/20 04/24/20 13:50 14:15 14:15 WBC 8.8 RBC 4.91 Hgb 13.2 Hct 39.1 MCV 80 MCH 26.8 L MCHC 33.7 RDW 14.6 H Plt Count 190 Seg Neutrophils % Not Reportable VBG pH 7.42 VBG pCO2 51.8 VBG HCO3 32.5 H VBG Base Excess 6.6 Sodium 136.6 L Potassium 3.6 Chloride 98 Carbon Dioxide 30 Anion Gap 9 BUN 8 Creatinine 0.68 Est GFR ( Amer) > 60 Glucose 100 Lactic Acid Calcium 8.9 Total Bilirubin 0.6 AST 21 Alkaline Phosphatase 52 Total Protein 7.7 Albumin 3.7 04/24/20 04/24/20 04/24/20 14:15 15:15 23:27 WBC RBC Hgb Hct MCV MCH MCHC RDW Plt Count Seg Neutrophils % VBG pH VBG pCO2 VBG HCO3 VBG Base Excess Sodium 137.8 Potassium 3.7 Chloride 103 Carbon Dioxide 28 Anion Gap 7 BUN 7 Creatinine 0.61 Est GFR ( Amer) > 60 Glucose 144 H Lactic Acid 1.6 1.9 Calcium 9.0 Total Bilirubin AST Alkaline Phosphatase Total Protein Albumin Impressions: Chest X-Ray 04/24/20 12:55 IMPRESSION: Cannot exclude limited airspace disease in the left base, pneumonia versus atelectasis. Lung Scan-VQ NM 04/24/20 16:27 IMPRESSION: Limited to perfusion imaging. A subtle wedge-shaped defect seen within the anterior left upper lobe may represent embolic disease. Venous Doppler Study 04/24/20 16:28 IMPRESSION: Acute DVT and SVT in the left upper extremity. Chest/Abdomen CTA 04/24/20 19:06 IMPRESSION: 1. No evidence for central PE. Peripheral pulmonary arteries not well evaluated due to motion artifact. 2. Diffuse mass in the anterior mediastinum greater on the left and extending towards the left infraclavicular region. Suspected large clotted left subclavian vein. There is also no obvious flow in the left brachiocephalic vein. The mass was not present on CT angiogram of the neck from 11/17/2016. Consider biopsy of the mass. Consider evaluation with MRI of the left upper chest as well as possible PET scan which may help direct the optimal location for biopsy.. 3. Small hiatal hernia. Bibasilar atelectasis. Mildly ectatic ascending aorta. Mild thickening of the left ventricle wall. Head CT 04/25/20 07:45 IMPRESSION: CHRONIC CHANGES OF ATROPHY AND MICROVASCULAR ISCHEMIA. NO ACUTE PROCESS. EVIDENCE OF ACUTE STROKE: NO. Assessment & Plan - Diagnosis (1) Flexor tenosynovitis of finger Is this a current diagnosis for this admission?: Yes Plan: This appears to have resolved. She likely no longer needs PICC line antibiotics but would benefit from continued broad-spectrum p.o. antibiotics including potential Bactrim. I would encourage her to still have appropriate follow-up in the office depending on her length of stay in the hospital. She needs physical and Occupational Therapy to increase range of motion of the finger at this time. She has no restrictions in regards to range of motion activity. She may also proceed to weight-bear in the right upper extremity 10 pounds. -I will follow with studies in regards to the left upper extremity, if there is a large abscess or other infectious process that needs to be addressed orthopedically, please contact me.
[2020-04-25] MEDS: NORMAL SALINE 1000 ML 1,000 ML IV PRN (12:05)
--- NOTE | 2020-04-25 16:42 | RADIOLOGY REPORT (SQ) ---
EXAM DESCRIPTION: U/S CHEST IMAGES COMPLETED DATE/TIME: 04/25/2020 4:29 pm REASON FOR STUDY: chest mass COMPARISON: None. TECHNIQUE: Ultrasound of the left supraclavicular region. LIMITATIONS: None. FINDINGS: Several enlarged lymph nodes. However no safe window could be obtained for safe FNA. IMPRESSION: Unable to obtain safe window for FNA. TECHNICAL DOCUMENTATION: JOB ID: [id number] 2010 [employer]- All Rights Reserved Reading location - IP/workstation name: [email or web address]
[2020-04-25] MEDS: CEFEPIME HCL 2 GM in DEXTROSE 5%-WATER 50 ML IV SCH (17:25)
[2020-04-25] MEDS ORDERED: OXYCODONE-ACETAMINOPHEN 5-325 MG TABLET PO PRN (22:42)
--- NOTE | 2020-04-26 01:50 | XCELERA REPORT ---
[address] [address] Transthoracic Echocardiogram Report Name: TANISHA MOTT Age: 55 yrs Gender: Female : 1965 Patient Status: Inpatient Patient Location: [address] [place], [place] [address] Study Date: 04/25/2020 07:57 AM Height: 66 in Weight: 245 lb BSA: 2.2 m2 Procedure: A two-dimensional transthoracic echocardiogram with color flow and Doppler was performed. Study Quality: Poor. Reason For Study: Tachycardia / cardiac arrhythmia unspecified(Discussed with ) History: Tachycardia / cardiac arrhythmia unspecified(Discussed with ). Ordering Physician: LUIS FERNÁNDEZ Performed By: Neda Narvaez Interpretation Summary Tachycardia / cardiac arrhythmia unspecified(Discussed with ) The left ventricle is normal in size. There is normal left ventricular wall thickness. Left ventricular systolic function is normal. LV EF is > than 65% Doppler measurements suggest impaired left ventricular relaxation, which is associated with grade I/IV or mild diastolic dysfunction The left ventricular wall motion is normal. There is no thrombus. Probably no ASD,VSD,or PFO seen. The right ventricle is not well visualized secondary to technical limitations The right atrium is normal. The left atrial size is normal. There is no evidence of mitral valve prolapse. There is no vegetation seen on the mitral valve. There is no mitral valve stenosis. There is a trace amount of mitral regurgitation There is no aortic valvular vegetation. There is no aortic valve stenosis There is no LVOT obstruction. No aortic regurgitation is present. There is no tricuspid stenosis. There is a trace amount of tricuspid regurgitation Tricuspid regurgitation jet envelope not well defined to measure RV systolic pressure accurately. There is no pulmonic valvular stenosis. There is no pulmonic valvular regurgitation. The aortic root is normal size. The inferior vena cava appeared normal and decreased > 50% with respiration (RAP 5-10 mmHg) There is no pericardial effusion. MMode/2D Measurements & Calculations RVDd: 2.7 cm LVIDd: 4.7 cm FS: 32.1 % Ao root diam: 3.3 cm IVSd: 1.0 cm LVIDs: 3.2 cm EDV(Teich): 104.5 ml Ao root area: 8.8 cm2 LVPWd: 1.2 cm ESV(Teich): 41.5 ml EF(Teich): 60.3 % Doppler Measurements & Calculations MV E max belle: MV dec slope: Ao V2 max: LV V1 max P.2 cm/sec 311.9 cm/sec2 118.4 cm/sec 4.6 mmHg MV A max belle: MV dec time: 0.20 sec Ao max PG: LV V1 max: 71.2 cm/sec 5.6 mmHg 107.6 cm/sec MV E/A: 0.86 PA V2 max: 76.1 cm/sec PA max P.3 mmHg Left Ventricle The left ventricle is normal in size. There is normal left ventricular wall thickness. Left ventricular systolic function is normal. LV EF is > than 65%. Doppler measurements suggest impaired left ventricular relaxation, which is associated with grade I/IV or mild diastolic dysfunction. The left ventricular wall motion is normal. There is no thrombus. Probably no ASD,VSD,or PFO seen. Right Ventricle The right ventricle is not well visualized secondary to technical limitations. Atria The right atrium is normal. The left atrial size is normal. Mitral Valve There is no evidence of mitral valve prolapse. There is no vegetation seen on the mitral valve. There is no mitral valve stenosis. There is a trace amount of mitral regurgitation. Aortic Valve There is no aortic valvular vegetation. There is no aortic valve stenosis. There is no LVOT obstruction. No aortic regurgitation is present. Tricuspid Valve There is no tricuspid stenosis. There is a trace amount of tricuspid regurgitation. Tricuspid regurgitation jet envelope not well defined to measure RV systolic pressure accurately. Pulmonic Valve There is no pulmonic valvular stenosis. There is no pulmonic valvular regurgitation. Great Vessels The aortic root is normal size. The inferior vena cava appeared normal and decreased > 50% with respiration (RAP 5-10 mmHg). Effusions There is no pericardial effusion. : LUIS FERNÁNDEZ Lakshmi
[2020-04-26] MEDS: NORMAL SALINE 1000 ML 1,000 ML IV PRN ×2 (03:53→17:25)
[2020-04-26] MEDS: ACETAMINOPHEN 325 MG TABLET PO PRN ×3 (04:20→19:49)
[2020-04-26] MEDS: CEFEPIME HCL 2 GM in DEXTROSE 5%-WATER 50 ML IV SCH ×2 (05:10→17:37)
[2020-04-26 06:05] LABS: BLOOD UREA NITROGEN 11 mg/dL (7-20); CALCIUM 8.1 mg/dL (8.4-10.2); CHLORIDE 108 mmol/L (98-107); GLUCOSE 93 mg/dL (75-110); POTASSIUM 3.5 mmol/L (3.6-5.0)
[2020-04-26 06:11] LABS: ANION GAP 6 (5-19); CARBON DIOXIDE 28 mmol/L (22-30)
[2020-04-26 06:12] LABS: ABSOLUTE LYMPHOCYTES (AUTO) 2.3 10^3/uL (0.5-4.7); ABSOLUTE MONOCYTES (AUTO) 0.7 10^3/uL (0.1-1.4); ABSOLUTE NEUT (AUTO) 4.8 10^3/uL (1.7-8.2); BASOPHILS % (AUTO) 0.5 % (0-2); EOSINOPHILS % (AUTO) 0.1 % (0-6); HEMATOCRIT 33.3 % (36.0-47.0); LYMPHOCYTES % (AUTO) 29.2 % (13-45); MEAN CORPUSCULAR HEMOGLOBIN 26.2 pg (27.0-33.4); MEAN CORPUSCULAR HGB CONC 33.1 g/dL (32.0-36.0); MEAN CORPUSCULAR VOLUME 79 fl (80-97); MONOCYTES % (AUTO) 9.2 % (3-13); PLATELET COUNT 190 10^3/uL (150-450); RED BLOOD COUNT 4.19 10^6/uL (3.72-5.28); RED CELL DISTRIBUTION WIDTH 14.4 % (11.5-14.0); TOTAL CELLS COUNTED % (AUTO) 100 %; WHITE BLOOD COUNT 7.9 10^3/uL (4.0-10.5)
--- NOTE | 2020-04-26 08:13 | PDOC PROGRESS REPORT ---
Subjective Progress Note for:: 04/26/20 Subjective:: Patient states that her arm is still very painful. No significant change from yesterday. ROS: No chest pains or dyspnea. Bowel and bladder working well. Reason For Visit: DEEP VENOUS THROMBOSIS, MASS Physical Exam Vital Signs: Temp Pulse Resp BP Pulse Ox 97.6 F 65 14 107/70 99 04/26/20 00:04 04/26/20 03:47 04/26/20 03:47 04/26/20 03:47 04/26/20 03:47 Intake & Output 04/25/20 04/26/20 04/27/20 06:59 06:59 06:59 Intake Total 2721 2857 Output Total 400 500 Balance 2321 2357 Weight 111.9 kg 115.1 kg General appearance: PRESENT: no acute distress, obese Head exam: PRESENT: normocephalic Eye exam: PRESENT: EOMI Respiratory exam: PRESENT: unlabored Extremities exam: PRESENT: other - Left upper extremity still larger than right. Some echymoses in wrist. Neurological exam: PRESENT: alert, awake Psychiatric exam: PRESENT: appropriate affect Skin exam: PRESENT: normal color Results Laboratory Results: 04/26/20 04:39 04/26/20 04:29 04/26/20 04/26/20 04:29 04:39 WBC 7.9 RBC 4.19 Hgb 11.0 L D Hct 33.3 L MCV 79 L MCH 26.2 L MCHC 33.1 RDW 14.4 H Plt Count 190 Seg Neutrophils % 61.0 Sodium 141.6 Potassium 3.5 L Chloride 108 H Carbon Dioxide 28 Anion Gap 6 BUN 11 Creatinine 0.55 Est GFR ( Amer) > 60 Glucose 93 Calcium 8.1 L 04/24/20 13:50 Blood Blood Culture (PCR) - Final Impressions: Chest X-Ray 04/24/20 12:55 IMPRESSION: Cannot exclude limited airspace disease in the left base, pneumonia versus atelectasis. Lung Scan-VQ NM 04/24/20 16:27 IMPRESSION: Limited to perfusion imaging. A subtle wedge-shaped defect seen within the anterior left upper lobe may represent embolic disease. Venous Doppler Study 04/24/20 16:28 IMPRESSION: Acute DVT and SVT in the left upper extremity. Chest/Abdomen CTA 04/24/20 19:06 IMPRESSION: 1. No evidence for central PE. Peripheral pulmonary arteries not well evaluated due to motion artifact. 2. Diffuse mass in the anterior mediastinum greater on the left and extending towards the left infraclavicular region. Suspected large clotted left subclavian vein. There is also no obvious flow in the left brachiocephalic vein. The mass was not present on CT angiogram of the neck from 11/17/2016. Consider biopsy of the mass. Consider evaluation with MRI of the left upper chest as well as possible PET scan which may help direct the optimal location for biopsy.. 3. Small hiatal hernia. Bibasilar atelectasis. Mildly ectatic ascending aorta. Mild thickening of the left ventricle wall. Chest Ultrasound 04/25/20 00:00 IMPRESSION: Unable to obtain safe window for FNA. Head CT 04/25/20 07:45 IMPRESSION: CHRONIC CHANGES OF ATROPHY AND MICROVASCULAR ISCHEMIA. NO ACUTE PROCESS. EVIDENCE OF ACUTE STROKE: NO. Assessment & Plan - Diagnosis (1) DVT (deep venous thrombosis) Qualifiers: DVT location: upper extremity Affected thrombotic vein of extremity: unspecified vein of extremity Chronicity: acute Laterality: left Qualified Code(s): I82.622 - Acute embolism and thrombosis of deep veins of left upper extremity Is this a current diagnosis for this admission?: Yes Plan: Continue anticoagulation. May transition to Xarelto at any time. I will follow as outpatient to determine length of therapy. (2) Mediastinal mass Is this a current diagnosis for this admission?: Yes Plan: I discussed with Dr. Calix. radiologists do not believe they are able to obtain needle biopsy of anything at present. There are several enlarged LNs. I still believe it would be better to wait a few weeks and repeat CT scan to see if all of this is inflammatory. Excisional biopsy would need to be performed if area still suspicious. - Time Time Spent with patient: 15-24 minutes
--- NOTE | 2020-04-26 08:29 | PDOC PROGRESS REPORT ---
Subjective Progress Note for:: 04/26/20 Subjective:: Patient is currently doing fair except still complaining of pain in the left upper extremity and the DVT side Chest pain no short of breath An echocardiogram is all stable Discussed with the director graphics and suggest to change to Xarelto and follow outpatients about the repeat the CT scan about the mediastinal mass Yesterday the ultrasound of the chest was done and try to do the biopsy but unable to do it Reason For Visit: DEEP VENOUS THROMBOSIS, MASS Physical Exam Vital Signs: Temp Pulse Resp BP Pulse Ox 97.6 F 60 22 H 137/98 H 97 04/26/20 07:54 04/26/20 07:54 04/26/20 07:54 04/26/20 07:54 04/26/20 07:54 Intake & Output 04/25/20 04/26/20 04/27/20 06:59 06:59 06:59 Intake Total 2721 2857 Output Total 400 500 Balance 2321 2357 Weight 111.9 kg 115.1 kg General appearance: PRESENT: no acute distress, well-developed, well-nourished Head exam: PRESENT: atraumatic, normocephalic Eye exam: PRESENT: conjunctiva pink, EOMI, PERRLA. ABSENT: scleral icterus Ear exam: PRESENT: normal external ear exam Mouth exam: PRESENT: moist, tongue midline Neck exam: PRESENT: full ROM. ABSENT: carotid bruit, JVD, lymphadenopathy, thyromegaly Respiratory exam: PRESENT: clear to auscultation doe Cardiovascular exam: PRESENT: RRR. ABSENT: diastolic murmur, rubs, systolic murmur Pulses: PRESENT: normal dorsalis pedis pul, +2 pedal pulses bilateral Vascular exam: PRESENT: normal capillary refill GI/Abdominal exam: PRESENT: normal bowel sounds, soft. ABSENT: distended, guarding, mass, organolmegaly, rebound, tenderness Rectal exam: PRESENT: deferred Additional comments: Left upper extremity some swelling is present Neurological exam: PRESENT: alert, awake, oriented to person, oriented to place, oriented to time, oriented to situation, CN II-XII grossly intact. ABSENT: shanti r sensory deficit Psychiatric exam: PRESENT: appropriate affect, normal mood. ABSENT: homicidal ideation, suicidal ideation Skin exam: PRESENT: dry, intact, warm. ABSENT: cyanosis, rash Results Laboratory Results: 04/26/20 04:39 04/26/20 04:29 04/26/20 04/26/20 04:29 04:39 WBC 7.9 RBC 4.19 Hgb 11.0 L D Hct 33.3 L MCV 79 L MCH 26.2 L MCHC 33.1 RDW 14.4 H Plt Count 190 Seg Neutrophils % 61.0 Sodium 141.6 Potassium 3.5 L Chloride 108 H Carbon Dioxide 28 Anion Gap 6 BUN 11 Creatinine 0.55 Est GFR ( Amer) > 60 Glucose 93 Calcium 8.1 L 04/24/20 13:50 Blood Blood Culture (PCR) - Final Impressions: Chest X-Ray 04/24/20 12:55 IMPRESSION: Cannot exclude limited airspace disease in the left base, pneumonia versus atelectasis. Lung Scan-VQ NM 04/24/20 16:27 IMPRESSION: Limited to perfusion imaging. A subtle wedge-shaped defect seen within the anterior left upper lobe may represent embolic disease. Venous Doppler Study 04/24/20 16:28 IMPRESSION: Acute DVT and SVT in the left upper extremity. Chest/Abdomen CTA 04/24/20 19:06 IMPRESSION: 1. No evidence for central PE. Peripheral pulmonary arteries not well evaluated due to motion artifact. 2. Diffuse mass in the anterior mediastinum greater on the left and extending towards the left infraclavicular region. Suspected large clotted left subclavian vein. There is also no obvious flow in the left brachiocephalic vein. The mass was not present on CT angiogram of the neck from 11/17/2016. Consider biopsy of the mass. Consider evaluation with MRI of the left upper chest as well as possible PET scan which may help direct the optimal location for biopsy.. 3. Small hiatal hernia. Bibasilar atelectasis. Mildly ectatic ascending aorta. Mild thickening of the left ventricle wall. Chest Ultrasound 04/25/20 00:00 IMPRESSION: Unable to obtain safe window for FNA. Head CT 04/25/20 07:45 IMPRESSION: CHRONIC CHANGES OF ATROPHY AND MICROVASCULAR ISCHEMIA. NO ACUTE PROCESS. EVIDENCE OF ACUTE STROKE: NO. Assessment & Plan - Diagnosis (1) DVT (deep venous thrombosis) Qualifiers: DVT location: upper extremity Affected thrombotic vein of extremity: unspecified vein of extremity Chronicity: acute Laterality: left Qualified Code(s): I82.622 - Acute embolism and thrombosis of deep veins of left upper extremity Is this a current diagnosis for this admission?: Yes Plan: We will switch to Xarelto 15 mg p.o. twice a day (2) Left arm swelling Is this a current diagnosis for this admission?: Yes Plan: As per vascular surgeon will put the patient on a Amish wrap and elevate the upper extremities (3) Mediastinal mass Is this a current diagnosis for this admission?: Yes Plan: As per discussed with the oncology will repeat the CT as outpatient (4) Acute bacterial paronychia Is this a current diagnosis for this admission?: Yes Plan: As per orthopedic surgeries discontinues the p.o. 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) Is this a current diagnosis for this admission?: Yes (8) Prediabetes Is this a current diagnosis for this admission?: Yes (9) Seizure disorder Is this a current diagnosis for this admission?: Yes - Time Time Spent with patient: 25-34 minutes Level of Care: IMCU Medications reviewed and adjusted accordingly: Yes Anticipated discharge: Home with Homehealth Anticipated DC Timeframe: within 24 hours - Plan Summary Plan Summary: We will switch the medicines to Xarelto I will send a prescription to the patient's pharmacy see patient able to fill the prescription or not before go home will continues the antibiotic consider switch to the p.o. antibiotic once the cultures back
[2020-04-26] MEDS ORDERED: RIVAROXABAN 15 MG TABLET PO SCH (08:30)
[2020-04-26] MEDS: RIVAROXABAN 15 MG TABLET PO SCH ×2 (09:15→16:16)
[2020-04-26] MEDS: OXYBUTYNIN CHLORIDE 5 MG TABLET PO SCH (09:16)
[2020-04-26] MEDS: LACTOBACILLUS ACIDOPHILUS 250 MG TAB PO SCH ×2 (09:16→17:17)
[2020-04-26] MEDS: DOCUSATE SODIUM 100 MG CAPSULE PO SCH (09:16)
[2020-04-26] MEDS: CETIRIZINE 10 MG TABLET PO SCH (09:17)
[2020-04-26] MEDS: METRONIDAZOLE 500 MG TABLET PO SCH ×2 (09:17→21:50)
[2020-04-26] MEDS: LEVETIRACETAM 500 MG TABLET PO SCH ×2 (09:18→17:17)
[2020-04-26] MEDS ORDERED: (PENDING PHARMACY ID) (Pravastatin Sodium [Pravastatin Sodium] 40 MG) PO SCH (10:00)
[2020-04-26] MEDS: OXYCODONE-ACETAMINOPHEN 5-325 MG TABLET PO SCH ×2 (12:20→17:17)
[2020-04-26 16:37] LABS: APPEARANCE,URINE CLEAR; BILIRUBIN,URINE NEGATIVE (NEGATIVE); COLOR,URINE YELLOW; GLUCOSE, URINE NEGATIVE (NEGATIVE); KETONES,URINE NEGATIVE (NEGATIVE); LEUKOCYTE ESTERASE,URINE TRACE (NEGATIVE); NITRITE,URINE NEGATIVE (NEGATIVE); PROTEIN,URINE 30 mg/dL (NEGATIVE); URINE SPECIFIC GRAVITY 1.023
[2020-04-26] MEDS: SIMVASTATIN 10 MG TABLET PO SCH (21:51)
[2020-04-27] MEDS: OXYCODONE-ACETAMINOPHEN 5-325 MG TABLET PO SCH ×4 (00:16→17:43)
[2020-04-27] MEDS: CEFEPIME HCL 2 GM in DEXTROSE 5%-WATER 50 ML IV SCH ×2 (06:04→17:43)
[2020-04-27 07:12] LABS: ANION GAP 6 (5-19); BLOOD UREA NITROGEN 8 mg/dL (7-20); CALCIUM 8.4 mg/dL (8.4-10.2); CARBON DIOXIDE 27 mmol/L (22-30); CHLORIDE 106 mmol/L (98-107); GLUCOSE 94 mg/dL (75-110); POTASSIUM 4.1 mmol/L (3.6-5.0)
[2020-04-27] MEDS: RIVAROXABAN 15 MG TABLET PO SCH ×3 (08:35→21:19)
[2020-04-27] MEDS: METRONIDAZOLE 500 MG TABLET PO SCH ×2 (10:06→21:18)
[2020-04-27] MEDS: CETIRIZINE 10 MG TABLET PO SCH (10:06)
[2020-04-27] MEDS: OXYBUTYNIN CHLORIDE 5 MG TABLET PO SCH (10:06)
[2020-04-27] MEDS: LEVETIRACETAM 500 MG TABLET PO SCH ×2 (10:07→17:43)
[2020-04-27] MEDS: LACTOBACILLUS ACIDOPHILUS 250 MG TAB PO SCH ×2 (10:07→17:43)
[2020-04-27] MEDS: DOCUSATE SODIUM 100 MG CAPSULE PO SCH (10:07)
[2020-04-27] MEDS: ACETAMINOPHEN 325 MG TABLET PO PRN (10:10)
--- NOTE | 2020-04-27 13:54 | PDOC PROGRESS REPORT ---
Subjective Progress Note for:: 04/27/20 Subjective:: Patient seen by the bedside, she has deep vein thrombosis of the left upper arm, mediastinal mass, she has no new complaints today, chart was reviewed, presently on oral anticoagulant Reason For Visit: DEEP VENOUS THROMBOSIS, MASS Physical Exam Vital Signs: Temp Pulse Resp BP Pulse Ox 97.4 F 66 18 126/84 H 97 04/27/20 11:17 04/27/20 11:17 04/27/20 11:17 04/27/20 11:17 04/27/20 11:17 Intake & Output 04/26/20 04/27/20 04/28/20 06:59 06:59 06:59 Intake Total 2857 1648 Output Total 500 Balance 2357 1648 Weight 115.1 kg 114.5 kg General appearance: PRESENT: no acute distress Eye exam: PRESENT: PERRLA Respiratory exam: PRESENT: clear to auscultation doe Cardiovascular exam: PRESENT: +S1, +S2 GI/Abdominal exam: PRESENT: soft Extremities exam: PRESENT: other - Left upper extremity swelling Results Laboratory Results: 04/26/20 04:39 04/27/20 05:57 04/26/20 04/27/20 16:15 05:57 Sodium 138.8 Potassium 4.1 Chloride 106 Carbon Dioxide 27 Anion Gap 6 BUN 8 Creatinine 0.52 Est GFR ( Amer) > 60 Glucose 94 Calcium 8.4 Urine Color YELLOW Urine Appearance CLEAR Urine pH 6.0 Ur Specific [place] 1.023 Urine Protein 30 H Urine Glucose (UA) NEGATIVE Urine Ketones NEGATIVE Urine Blood NEGATIVE Urine Nitrite NEGATIVE Ur Leukocyte Esterase TRACE H Urine WBC (Auto) 2 Urine RBC (Auto) 2 04/24/20 13:59 Catheter Tip - Peripheral Line (Cath Tip) Catheter Tip Culture - Final Enterococcus Faecalis(Group D) 04/24/20 13:50 Blood Blood Culture (PCR) - Final 04/24/20 13:50 Blood Blood Culture - Final Micrococcus Species 04/25/20 02:30 Clean Catch Midstream Urine Culture - Final Yeast, Not Kaylin Albicans Impressions: Chest X-Ray 04/24/20 12:55 IMPRESSION: Cannot exclude limited airspace disease in the left base, pneumonia versus atelectasis. Lung Scan-VQ NM 04/24/20 16:27 IMPRESSION: Limited to perfusion imaging. A subtle wedge-shaped defect seen wi thin the anterior left upper lobe may represent embolic disease. Venous Doppler Study 04/24/20 16:28 IMPRESSION: Acute DVT and SVT in the left upper extremity. Chest/Abdomen CTA 04/24/20 19:06 IMPRESSION: 1. No evidence for central PE. Peripheral pulmonary arteries not well evaluated due to motion artifact. 2. Diffuse mass in the anterior mediastinum greater on the left and extending towards the left infraclavicular region. Suspected large clotted left subclavian vein. There is also no obvious flow in the left brachiocephalic vein. The mass was not present on CT angiogram of the neck from 11/17/2016. Consider biopsy of the mass. Consider evaluation with MRI of the left upper chest as well as possible PET scan which may help direct the optimal location for biopsy.. 3. Small hiatal hernia. Bibasilar atelectasis. Mildly ectatic ascending aorta. Mild thickening of the left ventricle wall. Chest Ultrasound 04/25/20 00:00 IMPRESSION: Unable to obtain safe window for FNA. Head CT 04/25/20 07:45 IMPRESSION: CHRONIC CHANGES OF ATROPHY AND MICROVASCULAR ISCHEMIA. NO ACUTE PROCESS. EVIDENCE OF ACUTE STROKE: NO. Assessment & Plan - Diagnosis (1) Acute deep vein thrombosis (DVT) Qualifiers: DVT location: upper extremity Affected thrombotic vein of extremity: unspecified vein of extremity Laterality: left Qualified Code(s): I82.622 - Acute embolism and thrombosis of deep veins of left upper extremity Is this a current diagnosis for this admission?: Yes Plan: Continue present oral anticoagulant therapy (2) Morbid obesity due to excess calories Is this a current diagnosis for this admission?: Yes (3) Mediastinal mass Is this a current diagnosis for this admission?: Yes - Time Time Spent with patient: 25-34 minutes Level of Care: IMCU Medications reviewed and adjusted accordingly: Yes Anticipated discharge: Home Anticipated DC Timeframe: within 72 hours
[2020-04-27] MEDS: NORMAL SALINE 1000 ML 1,000 ML IV PRN (14:15)
[2020-04-27] MEDS: SIMVASTATIN 10 MG TABLET PO SCH (21:18)
[2020-04-28] MEDS: OXYCODONE-ACETAMINOPHEN 5-325 MG TABLET PO SCH ×5 (00:39→23:56)
[2020-04-28] MEDS: CEFEPIME HCL 2 GM in DEXTROSE 5%-WATER 50 ML IV SCH ×2 (05:15→17:55)
[2020-04-28 06:55] LABS: ANION GAP 5 (5-19); BLOOD UREA NITROGEN 6 mg/dL (7-20); CALCIUM 8.5 mg/dL (8.4-10.2); CARBON DIOXIDE 27 mmol/L (22-30); CHLORIDE 106 mmol/L (98-107); GLUCOSE 97 mg/dL (75-110); POTASSIUM 3.9 mmol/L (3.6-5.0)
[2020-04-28] MEDS: DOCUSATE SODIUM 100 MG CAPSULE PO SCH (09:43)
[2020-04-28] MEDS: LEVETIRACETAM 500 MG TABLET PO SCH ×2 (09:50→17:51)
[2020-04-28] MEDS: METRONIDAZOLE 500 MG TABLET PO SCH ×2 (09:50→21:14)
[2020-04-28] MEDS: OXYBUTYNIN CHLORIDE 5 MG TABLET PO SCH (09:51)
[2020-04-28] MEDS: RIVAROXABAN 15 MG TABLET PO SCH ×2 (09:51→21:14)
[2020-04-28] MEDS: LACTOBACILLUS ACIDOPHILUS 250 MG TAB PO SCH ×2 (09:51→17:51)
[2020-04-28] MEDS: CETIRIZINE 10 MG TABLET PO SCH (09:51)
[2020-04-28] MEDS: ACETAMINOPHEN 325 MG TABLET PO PRN (09:57)
--- NOTE | 2020-04-28 12:33 | PDOC PROGRESS REPORT ---
Subjective Progress Note for:: 04/28/20 Subjective:: Patient seen by the bedside, she has deep vein thrombosis of the left upper arm, mediastinal mass, she has no new complaints today, chart was reviewed, presently on oral anticoagulant Reason For Visit: DEEP VENOUS THROMBOSIS, MASS Physical Exam Vital Signs: Temp Pulse Resp BP Pulse Ox 98.4 F 89 18 127/86 H 100 04/28/20 07:50 04/28/20 08:15 04/28/20 07:50 04/28/20 08:15 04/28/20 07:50 Intake & Output 04/27/20 04/28/20 04/29/20 06:59 06:59 06:59 Intake Total 1648 2840 Output Total 1750 Balance 1648 1090 Weight 114.5 kg 115.1 kg General appearance: PRESENT: no acute distress Eye exam: PRESENT: PERRLA Respiratory exam: PRESENT: clear to auscultation doe Cardiovascular exam: PRESENT: +S1, +S2 GI/Abdominal exam: PRESENT: soft Neurological exam: PRESENT: alert Results Laboratory Results: 04/26/20 04:39 04/28/20 05:40 04/28/20 05:40 Sodium 137.6 Potassium 3.9 Chloride 106 Carbon Dioxide 27 Anion Gap 5 BUN 6 L Creatinine 0.52 Est GFR ( Amer) > 60 Glucose 97 Calcium 8.5 Impressions: Chest X-Ray 04/24/20 12:55 IMPRESSION: Cannot exclude limited airspace disease in the left base, pneumonia versus atelectasis. Lung Scan-VQ NM 04/24/20 16:27 IMPRESSION: Limited to perfusion imaging. A subtle wedge-shaped defect seen within the anterior left upper lobe may represent embolic disease. Venous Doppler Study 04/24/20 16:28 IMPRESSION: Acute DVT and SVT in the left upper extremity. Chest/Abdomen CTA 04/24/20 19:06 IMPRESSION: 1. No evidence for central PE. Peripheral pulmonary arteries not well evaluated due to motion artifact. 2. Diffuse mass in the anterior mediastinum greater on the left and extending towards the left infraclavicular region. Suspected large clotted left subclavian vein. There is also no obvious flow in the left brachiocephalic vein. The mass was not present on CT angiogram of the neck from 11/17/2016. Consider biopsy of the mass. Consider evaluation with MRI of the left upper chest as well as possible PET scan which may help direct the optimal location for biopsy.. 3. Small hiatal hernia. Bibasilar atelectasis. Mildly ectatic ascending aorta. Mild thickening of the left ventricle wall. Chest Ultrasound 04/25/20 00:00 IMPRESSION: Unable to obtain safe window for FNA. Head CT 04/25/20 07:45 IMPRESSION: CHRONIC CHANGES OF ATROPHY AND MICROVASCULAR ISCHEMIA. NO ACUTE PROCESS. EVIDENCE OF ACUTE STROKE: NO. Assessment & Plan - Diagnosis (1) Acute deep vein thrombosis (DVT) Qualifiers: DVT location: upper extremity Affected thrombotic vein of extremity: unspecified vein of extremity Laterality: left Qualified Code(s): I82.622 - Acute embolism and thrombosis of deep veins of left upper extremity Is this a current diagnosis for this admission?: Yes Plan: Continue present oral anticoagulant therapy (2) Morbid obesity due to excess calories Is this a current diagnosis for this admission?: Yes (3) Mediastinal mass Is this a current diagnosis for this admission?: Yes - Time Time Spent with patient: 35 or more minutes Level of Care: IMCU Medications reviewed and adjusted accordingly: Yes Anticipated discharge: Home Anticipated DC Timeframe: within 72 hours
[2020-04-28] MEDS: NORMAL SALINE 1000 ML 1,000 ML IV PRN (17:55)
[2020-04-28] MEDS: SIMVASTATIN 10 MG TABLET PO SCH (21:14)
[2020-04-29 05:46] LABS: HEMOGLOBIN 11.3 g/dL (12.0-15.5); MEAN CORPUSCULAR HEMOGLOBIN 26.8 pg (27.0-33.4); MEAN CORPUSCULAR HGB CONC 33.2 g/dL (32.0-36.0); MEAN CORPUSCULAR VOLUME 81 fl (80-97); PLATELET COUNT 301 10^3/uL (150-450); RED BLOOD COUNT 4.21 10^6/uL (3.72-5.28); RED CELL DISTRIBUTION WIDTH 14.5 % (11.5-14.0); WHITE BLOOD COUNT 4.5 10^3/uL (4.0-10.5)
[2020-04-29] MEDS: CEFEPIME HCL 2 GM in DEXTROSE 5%-WATER 50 ML IV SCH (05:54)
[2020-04-29] MEDS: OXYCODONE-ACETAMINOPHEN 5-325 MG TABLET PO SCH (05:55)
[2020-04-29 07:09] LABS: APPEARANCE,URINE CLEAR; BILIRUBIN,URINE NEGATIVE (NEGATIVE); COLOR,URINE YELLOW; GLUCOSE, URINE NEGATIVE (NEGATIVE); KETONES,URINE NEGATIVE (NEGATIVE); LEUKOCYTE ESTERASE,URINE NEGATIVE (NEGATIVE); NITRITE,URINE NEGATIVE (NEGATIVE); PROTEIN,URINE NEGATIVE (NEGATIVE); URINE SPECIFIC GRAVITY 1.017; UROBILINOGEN,URINE NEGATIVE mg/dL (<2.0)
--- NOTE | 2020-04-29 08:46 | PDOC PROGRESS REPORT ---
Subjective Progress Note for:: 04/29/20 Subjective:: Patient is still complaining of left arm pain. The pain medications help but movement makes the pain worse. No dyspnea, but occasional "heavy sigh" when she moves. She is tolerating the Xarelto well without evidence of bleeding. Reason For Visit: DEEP VENOUS THROMBOSIS, MASS Physical Exam Vital Signs: Temp Pulse Resp BP Pulse Ox 97.9 F 65 18 139/90 H 99 04/29/20 07:24 04/29/20 07:24 04/29/20 07:24 04/29/20 07:24 04/29/20 07:24 Intake & Output 04/28/20 04/29/20 04/30/20 06:59 06:59 06:59 Intake Total 2840 2130 Output Total 1750 3400 Balance 1090 -1270 Weight 115.1 kg 115.4 kg General appearance: PRESENT: no acute distress Head exam: PRESENT: normocephalic Eye exam: PRESENT: EOMI Respiratory exam: PRESENT: unlabored Extremities exam: PRESENT: other - No change in left upper extremity. Neurological exam: PRESENT: alert, awake, oriented to person, oriented to place, oriented to time, oriented to situation Psychiatric exam: PRESENT: appropriate affect Skin exam: PRESENT: normal color Results Laboratory Results: 04/29/20 05:06 04/28/20 05:40 04/29/20 04/29/20 03:17 05:06 WBC 4.5 RBC 4.21 Hgb 11.3 L Hct 34.0 L MCV 81 MCH 26.8 L MCHC 33.2 RDW 14.5 H Plt Count 301 Urine Color YELLOW Urine Appearance CLEAR Urine pH 7.0 Ur Specific [place] 1.017 Urine Protein NEGATIVE Urine Glucose (UA) NEGATIVE Urine Ketones NEGATIVE Urine Blood NEGATIVE Urine Nitrite NEGATIVE Ur Leukocyte Esterase NEGATIVE Urine WBC (Auto) 1 Urine RBC (Auto) 1 Impressions: Chest X-Ray 04/24/20 12:55 IMPRESSION: Cannot exclude limited airspace disease in the left base, pneumonia versus atelectasis. Lung Scan-VQ NM 04/24/20 16:27 IMPRESSION: Limited to perfusion imaging. A subtle wedge-shaped defect seen within the anterior left upper lobe may represent embolic disease. Venous Doppler Study 04/24/20 16:28 IMPRESSION: Acute DVT and SVT in the left upper extremity. Chest/Abdomen CTA 04/24/20 19:06 IMPRESSION: 1. No evidence for central PE. Peripheral pulmonary arteries not well evaluated due to motion artifact. 2. Diffuse mass in the anterior mediastinum greater on the left and extending towards the left infraclavicular region. Suspected large clotted left subclavian vein. There is also no obvious flow in the left brachiocephalic vein. The mass was not present on CT angiogram of the neck from 11/17/2016. Consider biopsy of the mass. Consider evaluation with MRI of the left upper chest as well as possible PET scan which may help direct the optimal location for biopsy.. 3. Small hiatal hernia. Bibasilar atelectasis. Mildly ectatic ascending aorta. Mild thickening of the left ventricle wall. Chest Ultrasound 04/25/20 00:00 IMPRESSION: Unable to obtain safe window for FNA. Head CT 04/25/20 07:45 IMPRESSION: CHRONIC CHANGES OF ATROPHY AND MICROVASCULAR ISCHEMIA. NO ACUTE PROCESS. EVIDENCE OF ACUTE STROKE: NO. Assessment & Plan - Diagnosis (1) DVT (deep venous thrombosis) Qualifiers: DVT location: upper extremity Affected thrombotic vein of extremity: unspecified vein of extremity Chronicity: acute Laterality: left Qualified Code(s): I82.622 - Acute embolism and thrombosis of deep veins of left upper extremity Is this a current diagnosis for this admission?: Yes Plan: Doing well on Xarelto. Has follow-up scheduled. (2) Mediastinal mass Is this a current diagnosis for this admission?: Yes Plan: I will arrange CT as outpatient. - Time Time Spent with patient: Less than 15 minutes Disposition: Patient was discussed with Dr. Calix.
[2020-04-29] MEDS: OXYBUTYNIN CHLORIDE 5 MG TABLET PO SCH (09:11)
[2020-04-29] MEDS: LACTOBACILLUS ACIDOPHILUS 250 MG TAB PO SCH (09:11)
[2020-04-29] MEDS: LEVETIRACETAM 500 MG TABLET PO SCH (09:11)
[2020-04-29] MEDS: CETIRIZINE 10 MG TABLET PO SCH (09:12)
[2020-04-29] MEDS: METRONIDAZOLE 500 MG TABLET PO SCH (09:12)
[2020-04-29] MEDS: DOCUSATE SODIUM 100 MG CAPSULE PO SCH (09:12)
[2020-04-29] MEDS: RIVAROXABAN 15 MG TABLET PO SCH (09:12)
[2020-04-29 10:11] VITALS: BP 132/88
--- NOTE | 2020-04-29 12:05 | PDOC DISCHARGE SUMMARY ---
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 Please call the office to arrange prior to discharge. Thanks. ) LUIS FERNÁNDEZ MD [Primary Care Provider] - 05/01/20 11:30 am Prescriptions: Amoxicillin 1 tab PO TID #30 tab Rivaroxaban [Xarelto 15 mg Tablet] 15 mg PO Q12 #40 tablet Home Medications: Cetirizine HCl [Zyrtec 10 mg Tablet] 10 mg PO DAILY 04/11/20 Hydrochlorothiazide 12.5 mg PO DAILY 04/11/20 Levetiracetam [Keppra 500 mg Tablet] 1,000 mg PO Q12 04/11/20 Oxybutynin Chloride [Ditropan Xl] 10 mg PO DAILY 04/11/20 Pravastatin Sodium 40 mg PO DAILY 04/11/20 Docusate Sodium [Colace 100 mg Capsule] 100 mg PO DAILY capsule 04/17/20 Lactobacillus Acidophilus [Bacid 250 mg Tablet] 250 mg PO BID tab 04/17/20 Metronidazole [Flagyl 500 mg Tablet] 500 mg PO Q12 25 Days tablet 04/17/20 Amoxicillin 1 tab PO TID #30 tab 09/14/20 Rivaroxaban [Xarelto 15 mg Tablet] 15 mg PO Q12 #40 tablet 04/29/20 History of Present Illiness History of Present Illness: TANISHA MOTT is a 55 year old female This is a 55-year-old female with a history of the stroke and a history of the seizures disorders and hypertensions recently admitting in the hospital for the right middle finger infections status post surgery status post PICC line malia cement and IV infusion antibiotic at home Patient's went to the emergency department 2 days back because of the PICC line area was hurting and at that point patient have a blood culture was done and s ent home patient is came today in the office with a complaining of for left arm pain and a PICC line area very tender to touch and patient heart rate was 127 range and discussed with the radiology and decided to send to the emergency department to rule out any DVT In the emergency department extensive work-up done including the ultrasound shows a very extensive blood clot all the way to the neck area patient was CT angiogram did not show any central pulmonary embolism but have extensive DVT in the subclavian And brachiocephalic vein area and ER physician discussed with the vascular surgeon at [place] and suggest just the heparin and anticoagulations no need for any interventions Patient also have a mass on the subclavian area which he discussed with the oncology and discussed with the radiology order the ultrasound today to rule out other etiologies Patient also seen by the Ortho as per patient and the nurses no need for any antibiotic while the finger doing much better Patient's denied any chest pain no short of breath Hospital Course Hospital Course: This is a 55-year-old female is presenting the emergency departments from my office with a complaint for left upper extremity pain which patient of a PICC line was placed patient found with extensive DVT on the left upper extremities and also mediastinal mass Patient admitting in the hospital for IV heparin and speech language pathologist prn Dr. Salgado was consulted for further evaluations and switch to the Xarelto ER physician discussed with the vascular surgery just on anticoagulations and elevate the upper extremity but no other interventions needed Patient also seen by the orthopedic surgery for the right middle index finger infection suggest that continues the p.o. antibiotic and no need for further IV antibiotic Since received the IV cefepime At this point patients remain afebrile patient also have a mediastinal mass and hematology suggested he will repeat the CT scan as outpatients to further evaluate Patient still having some mild pain in the left upper extremity but other than that white count is all stable patients discharged with the Xarelto follow hematology and currently on a 15 mg twice a day we will switch to 20 mg after 21 days Discussed extensively regarding the patient about the anticoagulations with the bleeding monitor and fall precautions patient understand very well so risk and benefit with the discussed with the patient myself and hematology We will arrange the home health Follow in a 1 week in office with repeat the CBC and Chem-7 Patient's culture and the tips sensitive to the amoxicillin will continues the amoxicillin for 7 to 10 days Physical Exam Vital Signs: Temp Pulse Resp BP Pulse Ox 97.9 F 65 18 132/88 H 99 04/29/20 10:08 04/29/20 10:08 04/29/20 10:08 04/29/20 10:08 04/29/20 10:08 Intake & Output 04/28/20 04/29/20 04/30/20 06:59 06:59 06:59 Intake Total 2840 2130 Output Total 1750 3400 Balance 1090 -1270 Weight 115.1 kg 115.4 kg General appearance: PRESENT: no acute distress, well-developed, well-nourished Head exam: PRESENT: atraumatic, normocephalic Eye exam: PRESENT: conjunctiva pink, EOMI, PERRLA. ABSENT: scleral icterus Ear exam: PRESENT: normal external ear exam Mouth exam: PRESENT: moist, tongue midline Neck exam: ABSENT: carotid bruit, JVD, lymphadenopathy, thyromegaly Respiratory exam: PRESENT: clear to auscultation doe. ABSENT: rales, rhonchi, wheezes Cardiovascular exam: PRESENT: RRR. ABSENT: diastolic murmur, rubs, systolic murmur Pulses: PRESENT: normal dorsalis pedis pul Vascular exam: PRESENT: normal capillary refill GI/Abdominal exam: PRESENT: normal bowel sounds, soft. ABSENT: distended, guarding, mass, organolmegaly, rebound, tenderness Rectal exam: PRESENT: deferred Extremities exam: PRESENT: full ROM. ABSENT: calf tenderness, clubbing, pedal edema Musculoskeletal exam: PRESENT: ambulatory Neurological exam: PRESENT: alert, awake, oriented to person, oriented to place, oriented to time, oriented to situation, CN II-XII grossly intact. ABSENT: motor sensory deficit Psychiatric exam: PRESENT: appropriate affect, normal mood. ABSENT: homicidal ideation, suicidal ideation Skin exam: PRESENT: dry, intact, warm. ABSENT: cyanosis, rash Additional comments: Left upper extremities vascular exam is all normal swelling is much improved neuro exam is all normal Results Laboratory Results: WBC 4.5 10^3/uL (4.0-10.5) 04/29/20 05:06 RBC 4.21 10^6/uL (3.72-5.28) 04/29/20 05:06 Hgb 11.3 g/dL (12.0-15.5) L 04/29/20 05:06 Hct 34.0 % (36.0-47.0) L 04/29/20 05:06 MCV 81 fl (80-97) 04/29/20 05:06 MCH 26.8 pg (27.0-33.4) L 04/29/20 05:06 MCHC 33.2 g/dL (32.0-36.0) 04/29/20 05:06 RDW 14.5 % (11.5-14.0) H 04/29/20 05:06 Plt Count 301 10^3/uL (150-450) 04/29/20 05:06 Lymph % (Auto) 29.2 % (13-45) 04/26/20 04:39 Dunn % (Auto) 9.2 % (3-13) 04/26/20 04:39 Eos % (Auto) 0.1 % (0-6) 04/26/20 04:39 Baso % (Auto) 0.5 % (0-2) 04/26/20 04:39 Absolute Neuts (auto) 4.8 10^3/uL (1.7-8.2) 04/26/20 04:39 Absolute Lymphs (auto) 2.3 10^3/uL (0.5-4.7) 04/26/20 04:39 Absolute Monos (auto) 0.7 10^3/uL (0.1-1.4) 04/26/20 04:39 Absolute Eos (auto) 0.0 10^3/uL (0.0-0.6) 04/26/20 04:39 Absolute Basos (auto) 0.0 10^3/uL (0.0-0.2) 04/26/20 04:39 Total Counted 100 04/24/20 13:50 Seg Neutrophils % 61.0 % (42-78) 04/26/20 04:39 Seg Neuts % (Manual) 70 % (42-78) 04/24/20 13:50 Lymphocytes % (Manual) 9 % (13-45) L 04/24/20 13:50 Monocytes % (Manual) 21 % (3-13) H 04/24/20 13:50 Eosinophils % (Manual) 0 % (0-6) 04/24/20 13:50 Basophils % (Manual) 0 % (0-2) 04/24/20 13:50 Abs Neuts (Manual) 6.2 10^3/uL (1.7-8.2) 04/24/20 13:50 Abs Lymphs (Manual) 0.8 10^3/uL (0.5-4.7) 04/24/20 13:50 Abs Monocytes (Manual) 1.8 10^3/uL (0.1-1.4) H 04/24/20 13:50 Absolute Eos (Manual) 0.0 10^3/uL (0.0-0.6) 04/24/20 13:50 Abs Basophils (Manual) 0.0 10^3/uL (0.0-0.2) 04/24/20 13:50 Large Platelets PRESENT 04/24/20 13:50 Platelet Comment ADEQUATE 04/24/20 13:50 Hypochromasia SLIGHT 04/24/20 13:50 Anisocytosis SLIGHT 04/24/20 13:50 Microcytosis SLIGHT 04/24/20 13:50 PT 18.5 SEC (11.4-15.4) H 04/24/20 13:50 INR 1.52 04/24/20 13:50 APTT 36.6 SEC (23.5-35.8) H 04/27/20 05:57 VBG pH 7.42 (7.30-7.42) 04/24/20 14:15 VBG pCO2 51.8 mmHg (35-63) 04/24/20 14:15 VBG HCO3 32.5 mmol/L (20-32) H 04/24/20 14:15 VBG Base Excess 6.6 mmol/L 04/24/20 14:15 Sodium 137.6 mmol/L (137-145) 04/28/20 05:40 Potassium 3.9 mmol/L (3.6-5.0) 04/28/20 05:40 Chloride 106 mmol/L (98-107) 04/28/20 05:40 Carbon Dioxide 27 mmol/L (22-30) 04/28/20 05:40 Anion Gap 5 (5-19) 04/28/20 05:40 BUN 6 mg/dL (7-20) L 04/28/20 05:40 Creatinine 0.52 mg/dL (0.52-1.25) 04/28/20 05:40 Est GFR ( Amer) > 60 (>60) 04/28/20 05:40 Est GFR (MDRD) Non-Af > 60 (>60) 04/28/20 05:40 Glucose 97 mg/dL (75-110) 04/28/20 05:40 Lactic Acid 1.9 mmol/L (0.7-2.1) 04/24/20 15:15 Calcium 8.5 mg/dL (8.4-10.2) 04/28/20 05:40 Total Bilirubin 0.6 mg/dL (0.2-1.3) 04/24/20 14:15 Direct Bilirubin 0.3 mg/dL (0.0-0.4) 04/24/20 14:15 Neonat Total Bilirubin Not Reportable 04/24/20 14:15 Neonat Direct Bilirubin Not Reportable 04/24/20 14:15 Neonat Indirect Bili Not Reportable 04/24/20 14:15 AST 21 U/L (14-36) 04/24/20 14:15 ALT 26 U/L (<35) 04/24/20 14:15 Alkaline Phosphatase 52 U/L (38-126) 04/24/20 14:15 Total Protein 7.7 g/dL (6.3-8.2) 04/24/20 14:15 Albumin 3.7 g/dL (3.5-5.0) 04/24/20 14:15 Urine Color YELLOW 04/29/20 03:17 Urine Appearance CLEAR 04/29/20 03:17 Urine pH 7.0 (5.0-9.0) 04/29/20 03:17 Ur Specific [place] 1.017 04/29/20 03:17 Urine Protein NEGATIVE mg/dL (NEGATIVE) 04/29/20 03:17 Urine Glucose (UA) NEGATIVE mg/dL (NEGATIVE) 04/29/20 03:17 Urine Ketones NEGATIVE mg/dL (NEGATIVE) 04/29/20 03:17 Urine Blood NEGATIVE (NEGATIVE) 04/29/20 03:17 Urine Nitrite NEGATIVE (NEGATIVE) 04/29/20 03:17 Urine Bilirubin NEGATIVE (NEGATIVE) 04/29/20 03:17 Urine Urobilinogen NEGATIVE mg/dL (<2.0) 04/29/20 03:17 Ur Leukocyte Esterase NEGATIVE (NEGATIVE) 04/29/20 03:17 Urine WBC (Auto) 1 /HPF 04/29/20 03:17 Urine RBC (Auto) 1 /HPF 04/29/20 03:17 Urine Bacteria (Auto) TRACE /HPF 04/26/20 16:15 Squamous Epi Cells Auto 1 /HPF 04/29/20 03:17 Urine Mucus (Auto) RARE /LPF 04/29/20 03:17 Urine Ascorbic Acid NEGATIVE (NEGATIVE) 04/29/20 03:17 Monotest NEGATIVE (NEGATIVE) 04/24/20 23:27 Impressions: Chest X-Ray 04/24/20 12:55 IMPRESSION: Cannot exclude limited airspace disease in the left base, pneumonia versus atelectasis. Lung Scan-VQ NM 04/24/20 16:27 IMPRESSION: Limited to perfusion imaging. A subtle wedge-shaped defect seen within the anterior left upper lobe may represent embolic disease. Venous Doppler Study 04/24/20 16:28 IMPRESSION: Acute DVT and SVT in the left upper extremity. Chest/Abdomen CTA 04/24/20 19:06 IMPRESSION: 1. No evidence for central PE. Peripheral pulmonary arteries not well evaluated due to motion artifact. 2. Diffuse mass in the anterior mediastinum greater on the left and extending towards the left infraclavicular region. Suspected large clotted left subclavian vein. There is also no obvious flow in the left brachiocephalic vein. The mass was not present on CT angiogram of the neck from 11/17/2016. Consider biopsy of the mass. Consider evaluation with MRI of the left upper chest as well as possible PET scan which may help direct the optimal location for biopsy.. 3. Small hiatal hernia. Bibasilar atelectasis. Mildly ectatic ascending aorta. Mild thickening of the left ventricle wall. Chest Ultrasound 04/25/20 00:00 IMPRESSION: Unable to obtain safe window for FNA. Head CT 04/25/20 07:45 IMPRESSION: CHRONIC CHANGES OF ATROPHY AND MICROVASCULAR ISCHEMIA. NO ACUTE PROCESS. EVIDENCE OF ACUTE STROKE: NO. Plan Time Spent: Greater than 30 Minutes - Follow in office 1 week repeat the CBC Chem-[address] of the chest per hematology and oncology Stroke Is this a Stroke Patient?: No Acute Heart Failure Is this a Heart Failure Patient?: No
== END 2020-04-29 11:55 | disposition home health service (06) | DRG 301 ==
LOC: ER 09:58 → EH 22:51 → 3W 04-25 00:16
PROVIDERS: ADMIT Family Medicine; ATTEND Family Medicine
DX: I82.622 Acute embolism and thrombosis of deep veins of left upper extremity (principal); G40.909 Epilepsy, unspecified, not intractable, without status epilepticus; I10 Essential (primary) hypertension; E78.5 Hyperlipidemia, unspecified; G47.30 Sleep apnea, unspecified; L03.011 Cellulitis of right finger; L68.0 Hirsutism; R22.2 Localized swelling, mass and lump, trunk; E66.01 Morbid (severe) obesity due to excess calories; E78.00 Pure hypercholesterolemia, unspecified; F17.210 Nicotine dependence, cigarettes, uncomplicated; Z86.73 Personal history of transient ischemic attack (TIA), and cerebral infarction without residual deficits; Z95.9 Presence of cardiac and vascular implant and graft, unspecified; Z79.82 Long term (current) use of aspirin; Z79.899 Other long term (current) drug therapy; Z91.030 Bee allergy status; Z91.013 Allergy to seafood
CPT/HCPCS: 36415; 70450; 71045; 71275; 76604; 78580; 80048; 80053; 81001; 82803; 83605; 85025; 85027; 85610; 85730; 86308; 87040; 87070; 87077; 87086; 87150; 87186; 93005; 93010; 93306; 93971; 96361; 96365; 96375; 99285; A9540; J0692; J1200; J1644; J2930; J3370; J7030; J7060; Q9969; S0028

== ENCOUNTER 2020-05-15 15:30 | Emergency (ER) | payer BC, MEDICAID ==
--- NOTE | 2020-05-15 15:58 | ER Document Report ---
ED Medical Screen (RME) - General Chief Complaint: Hand Pain Stated Complaint: RIGHT HAND PAIN Time Seen by Provider: 05/15/20 15:49 Primary Care Provider: LUIS FERNÁNDEZ MD [Primary Care Provider] - Follow up as needed Information source: Patient Notes: Patient presents complaining of right third finger and hand pain and swelling. Patient poor historian. Review of patient's previous records demonstrates she had a felon and flexor tenosynovitis that was surgically cleaned out last month. Patient states she has had pain and swelling for the past 2 weeks. Patient denies any fever. I have greeted and performed a rapid initial assessment of this patient. A comprehensive ED assessment and evaluation of the patient, analysis of test results and completion of the medical decision making process will be conducted by additional ED providers. TRAVEL OUTSIDE OF THE [place] IN LAST 30 DAYS: No - Related Data Allergies/Adverse Reactions: No Known Drug Allergies Allergy (Verified 05/15/20 15:49) shellfish derived Allergy (Verified 05/15/20 15:49) bee sting Allergy (Uncoded 05/15/20 15:49) Past Medical History - Past Medical History Cardiac Medical History: Reports: Hx Hypercholesterolemia, Hx Hypertension Pulmonary Medical History: Reports: Hx Sleep Apnea Neurological Medical History: Reports: Hx Seizures Renal/ Medical History: Denies: Hx Peritoneal Dialysis Psychiatric Medical History: Denies: Hx Depression Past Surgical History: Reports: Hx Hysterectomy, Hx Orthopedic Surgery - lt knee, Other - unknown Physical Exam - Vital signs Vitals: Temp Pulse Resp BP Pulse Ox 98.6 F 97 16 141/113 H 100 05/15/20 15:33 05/15/20 15:05/15/20 15:33 05/15/20 15:33 05/15/20 15:33 - General General appearance: Appears well, Alert Notes: Tenderness and swelling to the right third finger, tenderness to palpation of the flexor tendon of the third finger Course - Vital Signs Vital signs: Temp Pulse Resp BP Pulse Ox 98.6 F 97 16 141/113 H 100 05/15/20 15:33 05/15/20 15:33 05/15/20 15:33 05/15/20 15:33 05/15/20 15:33 Doctor's Discharge - Discharge Referrals: LUIS FERNÁNDEZ MD [Primary Care Provider] - Follow up as needed
[2020-05-15 16:20] LABS: ABSOLUTE EOSINOPHILS # (AUTO) 0.1 10^3/uL (0.0-0.6); ABSOLUTE LYMPHOCYTES (AUTO) 1.4 10^3/uL (0.5-4.7); ABSOLUTE MONOCYTES (AUTO) 0.6 10^3/uL (0.1-1.4); ABSOLUTE NEUT (AUTO) 2.2 10^3/uL (1.7-8.2); BASOPHILS % (AUTO) 0.6 % (0-2); EOSINOPHILS % (AUTO) 1.2 % (0-6); HEMOGLOBIN 13.3 g/dL (12.0-15.5); LYMPHOCYTES % (AUTO) 33.3 % (13-45); MEAN CORPUSCULAR HEMOGLOBIN 26.7 pg (27.0-33.4); MEAN CORPUSCULAR HGB CONC 33.2 g/dL (32.0-36.0); MEAN CORPUSCULAR VOLUME 80 fl (80-97); MONOCYTES % (AUTO) 13.5 % (3-13); PLATELET COUNT 187 10^3/uL (150-450); RED BLOOD COUNT 4.98 10^6/uL (3.72-5.28); RED CELL DISTRIBUTION WIDTH 15.7 % (11.5-14.0); SEGMENTED NEUTROPHILS % (AUTO) 51.4 % (42-78); TOTAL CELLS COUNTED % (AUTO) 100 %; WHITE BLOOD COUNT 4.3 10^3/uL (4.0-10.5)
--- NOTE | 2020-05-15 16:24 | RADIOLOGY REPORT (SQ) ---
EXAM DESCRIPTION: HAND RIGHT 3 VIEWS IMAGES COMPLETED DATE/TIME: 05/15/2020 4:15 pm REASON FOR STUDY: r hand, r 3rd finger pain, swelling COMPARISON: None. EXAM PARAMETERS: NUMBER OF VIEWS: Three views. TECHNIQUE: AP, lateral and oblique radiographic images acquired of the right hand. LIMITATIONS: None. FINDINGS: MINERALIZATION: Normal. BONES: No acute fracture or dislocation. No worrisome bone lesions. JOINTS: No effusions. SOFT TISSUES: No soft tissue swelling. No foreign body. OTHER: No other significant finding. IMPRESSION: NEGATIVE STUDY OF THE RIGHT HAND. NO RADIOGRAPHIC EVIDENCE OF ACUTE INJURY. TECHNICAL DOCUMENTATION: JOB ID: [id number] [employer]- All Rights Reserved Reading location - IP/workstation name: [email or web address]
[2020-05-15 16:46] LABS: ALBUMIN 3.8 g/dL (3.5-5.0); ALKALINE PHOSPHATASE 50 U/L (38-126); ANION GAP 7 (5-19); ASPARTATE AMINO TRANSFERASE 23 U/L (14-36); BILIRUBIN,DIRECT 0.3 mg/dL (0.0-0.4); BILIRUBIN,TOTAL 0.4 mg/dL (0.2-1.3); BLOOD UREA NITROGEN 12 mg/dL (7-20); CALCIUM 9.6 mg/dL (8.4-10.2); CARBON DIOXIDE 30 mmol/L (22-30); CHLORIDE 105 mmol/L (98-107); GLUCOSE 109 mg/dL (75-110); POTASSIUM 3.5 mmol/L (3.6-5.0); TOTAL PROTEIN 7.2 g/dL (6.3-8.2)
[2020-05-15] MEDS ORDERED: CEFTRIAXONE 1 GM/D5W RTU 1 GM/50 ML RTUPB IV ONE (17:11)
[2020-05-15] MEDS ORDERED: HYDROMORPHONE HCL INJ/PF 2 MG/ML AMPULE IV ONE (17:15)
[2020-05-15] MEDS ORDERED: ONDANSETRON 4 MG TAB.RAPDIS PO ONE (17:15)
--- NOTE | 2020-05-15 17:16 | ER Document Report ---
ED General <JASONGERHARD JORGE Manuel - Last Filed: 05/15/20 17:47> - General Mode of Arrival: Ambulatory Information source: Patient TRAVEL OUTSIDE OF THE [place] IN LAST 30 DAYS: No - Related Data Home Medications: pmh : cva. xarelto. oxybutynin chloride. pravastatin. hctz. cetirizine. keppra. colace. bacid. flagyl. oxycodone / acetaminophen. acetaminophen <PATRICIA CHEUNG - Last Filed: 05/15/20 18:36> - General Chief Complaint: Hand Pain Stated Complaint: RIGHT HAND PAIN Time Seen by Provider: 05/15/20 15:49 Primary Care Provider: LUIS FERNÁNDEZ MD [Primary Care Provider] - Follow up as needed Notes: Patient is a 55-year-old -[place] female who comes in today with chief complaint finger and hand pain on the right side. Patient evidently was in the hospital in the beginning of this month with a felon to her right middle finger that caused infection into the flexor sheath of the same digit. She went to the operating room a couple of different times. She was eventually discharged home on outpatient IV therapy. She reports he was started on oral antibiotics just finished them. Patient complaining of some pain in the right middle finger and also in the operative site of the right palm. No fevers or chills. (PATRICIA CHEUNG) - Related Data Allergies/Adverse Reactions: No Known Drug Allergies Allergy (Verified 05/15/20 15:49) shellfish derived Allergy (Verified 05/15/20 15:49) bee sting Allergy (Uncoded 05/15/20 15:49) Past Medical History - General Information source: Patient - Social History Smoking Status: Current Every Day Smoker Chew tobacco use (# tins/day): No Frequency of alcohol use: None Drug Abuse: None Family History: Reviewed & Not Pertinent Patient has homicidal ideation: No - Past Medical History Cardiac Medical History: Reports: Hx Hypercholesterolemia, Hx Hypertension Pulmonary Medical History: Reports: Hx Sleep Apnea Neurological Medical History: Reports: Hx Seizures Renal/ Medical History: Denies: Hx Peritoneal Dialysis Psychiatric Medical History: Denies: Hx Depression Past Surgical History: Reports: Hx Hysterectomy, Hx Orthopedic Surgery - lt knee, Other - unknown <PATRICIA CHEUNG - Last Filed: 09/30/20 18:36> Review of Systems <PATRICIA CHEUNG - Last Filed: 05/15/20 18:36> - Review of Systems Notes: Constitutional: No fevers. No chills. EENT: No eye redness. No eye pain. No ear pain. No sore throat. Cardiovascular: No chest pain. No palpitations. Respiratory: No cough. No shortness of breath. No respiratory distress. Gastrointestinal: No abdominal pain. No nausea, vomiting, or diarrhea. Genitourinary: Atraumatic. No lesions. No pain. No discharge. Musculoskeletal: Right hand and right middle finger pain Skin: No rash or lesions. Positive redness right middle finger Lymphatic: No swollen lymph nodes. Neurologic: No headache. No syncope. Psychiatric: No suicidal or homicidal ideation. (PATRICIA CHEUNG) Physical Exam <PATRICIA CHEUNG - Last Filed: 05/15/20 18:36> - Vital signs Vitals: Temp Pulse Resp BP Pulse Ox 98.6 F 97 16 141/113 H 100 05/15/20 15:33 05/15/20 15:33 05/15/20 15:33 05/15/20 15:33 05/15/20 15:33 - Notes Notes: General: Well-developed, well-nourished. In no acute distress. Non-toxic appearing. Cardiac: Well-perfused. Regular rate and rhythm. No murmurs, rubs, or gallops. Pulmonary: No respiratory distress. No cyanosis. Bilateral lung fiels are clear to auscultation. Abdominal: Non-distended. Non-rigid. Bowels sounds are present in all four quadrants. No guarding or rebound. HEENT: Head is atraumatic. Conjunctivae not reddened. No tearing. PERRL. EOMI. Orbits atraumatic. No periorbital swelling or erythema. Oropharynx is without erythema, swelling, or exudates. Neck: Supple. No adenopathy. No meningismus. Dermatologic: Warm with good turgor. No rash. Atraumatic. Chest: Atraumatic. No chest wall tenderness to palpation. Musculoskeletal: There is some redness to the right middle finger particularly over the distribution of the distal phalanx. Also minimal redness over the d istribution of the middle phalanx. There is no induration. No significant soft tissue swelling. No open or draining lesions. There is also a healing scabbed wound to the palm at the base of the third finger that is tender to palpate but is not red or swollen. She has limited flexion of the right middle finger. Genitourinary: Examination deferred Neurologic: No gross neurologic deficits. Psychiatric: Normal mood. (PATRICIA CHEUNG) Course - Laboratory Result Diagrams: 05/15/20 16:07 05/15/20 16:07 <GERHARD GOMEZ - Last Filed: 05/15/20 17:47> - Laboratory Result Diagrams: 05/15/20 16:07 05/15/20 16:07 <PATRICIA CHEUNG - Last Filed: 05/15/20 18:36> - Re-evaluation Re-evalutation: 05/15/20 17:21 Patient may be developing a mild cellulitis over the distal aspect of the right middle finger. She does not have any fevers or chills. She has no white blood cell count elevation. Discussed the case with Dr. Arthur who is somewhat familiar with the patient's history with this. He recommends that we give her some amoxicillin as he thinks this is what she has been on and something for pain and follow-up in the office, preferably on Wednesday with Dr. Hawkins. 05/15/20 17:23 05/15/20 18:34 Patient's pain is significantly improved. Her blood pressure is also significantly improved. We have electronically transmitted her prescription for amoxicillin and Lynco to her pharmacy of choice. Patient is told to call Dr. fan's office tomorrow morning to set up an appointment for Wednesday. She acknowledges understanding of the plan and agrees. (PATRICIA CHEUNG) - Vital Signs Vital signs: Temp Pulse Resp BP Pulse Ox 98.6 F 80 16 138/90 H 100 05/15/20 15:50 05/15/20 18:19 05/15/20 18:19 05/15/20 18:19 05/15/20 15:33 - Laboratory Laboratory results interpreted by me: 05/15/20 05/15/20 16:07 16:07 MCH 26.7 L RDW 15.7 H [place] % (Auto) 13.5 H Potassium 3.5 L Discharge <GERHARD GOMEZ - Last Filed: 05/15/20 17:47> <PATRICIA CHEUNG - Last Filed: 05/15/20 18:36> - Discharge Clinical Impression: Elevated blood pressure reading Cellulitis, finger Qualifiers: Laterality: right Qualified Code(s): L03.011 - Cellulitis of right finger Condition: Good Disposition: HOME, SELF-CARE Instructions: Cellulitis ([facility]) Additional Instructions: Please start the amoxicillin prescription tomorrow. You are instructed to call the office in the morning, let the staff know that you were seen in the emergency department, and that the on-call doctor wanted you to follow-up with Dr. Hawkins on Wednesday. Do not let the weekend come without having this rec hecked by an orthopedic doctor. Pain medication as directed for moderate to severe pain only Prescriptions: Hydrocodone/Acetaminophen [Lynco 5-325 mg Tablet] 1 tab PO Q6HP PRN #10 tablet PRN Reason: Hydrocodone/Acetaminophen [Lynco 5-325 mg Tablet] 1 tab PO Q6HP PRN #10 tablet PRN Reason: Amoxicillin 1 tab PO TID #30 tab Referrals: CLEMENT HAWKINS DO [ACTIVE STAFF] - 05/17/20
--- NOTE | 2020-05-15 19:18 | ER Document Report ---
Doctor's Note Notes: The patient's primary provider is electronic prescribing is malfunctioning. For this reason I did send in the prescription for Orick electronically. This was my only involvement or interaction with this patient.\
[2020-05-15 19:25] VITALS: BP 102/69
== END 2020-05-15 19:24 | disposition home or self-care (01) ==
LOC: ER 15:30
DX: L03.011 Cellulitis of right finger (principal); E78.00 Pure hypercholesterolemia, unspecified; I10 Essential (primary) hypertension; R56.9 Unspecified convulsions; F17.200 Nicotine dependence, unspecified, uncomplicated; Z86.73 Personal history of transient ischemic attack (TIA), and cerebral infarction without residual deficits; Z79.01 Long term (current) use of anticoagulants; Z79.2 Long term (current) use of antibiotics; Z79.891 Long term (current) use of opiate analgesic; Z79.899 Other long term (current) drug therapy; Z98.890 Other specified postprocedural states; Z91.013 Allergy to seafood; Z91.030 Bee allergy status
CPT/HCPCS: 99284; 96375; 96365; 36415; 85025; 80053; 73130; S0119; J1170; J0696

== ENCOUNTER → 2020-05-23 | Outpatient (CLI) | payer BC, MEDICAID ==
[2020-05-23 09:23] LABS: ABSOLUTE EOSINOPHILS # (AUTO) 0.1 10^3/uL (0.0-0.6); ABSOLUTE LYMPHOCYTES (AUTO) 1.1 10^3/uL (0.5-4.7); ABSOLUTE MONOCYTES (AUTO) 0.4 10^3/uL (0.1-1.4); ABSOLUTE NEUT (AUTO) 1.1 10^3/uL (1.7-8.2); BASOPHILS % (AUTO) 0.2 % (0-2); EOSINOPHILS % (AUTO) 1.9 % (0-6); HEMATOCRIT 40.3 % (36.0-47.0); HEMOGLOBIN 13.4 g/dL (12.0-15.5); LYMPHOCYTES % (AUTO) 41.5 % (13-45); MEAN CORPUSCULAR HEMOGLOBIN 26.8 pg (27.0-33.4); MEAN CORPUSCULAR HGB CONC 33.2 g/dL (32.0-36.0); MEAN CORPUSCULAR VOLUME 81 fl (80-97); PLATELET COUNT 164 10^3/uL (150-450); RED CELL DISTRIBUTION WIDTH 16.2 % (11.5-14.0); SEGMENTED NEUTROPHILS % (AUTO) 40.4 % (42-78); TOTAL CELLS COUNTED % (AUTO) 100 %; WHITE BLOOD COUNT 2.7 10^3/uL (4.0-10.5)
[2020-05-23 10:09] LABS: ERYTHROCYTE SEDIMENTATION RATE 54 mm/hr (0-30)
== END ==
LOC: OD 08:50
PROVIDERS: ATTEND Orthopaedic Surgery
DX: M65.841 Other synovitis and tenosynovitis, right hand (principal)
CPT/HCPCS: 36415; 85025; 85652; 86140

== ENCOUNTER 2020-06-19 15:13 | Emergency (ER) | payer BC, MEDICAID ==
--- NOTE | 2020-06-19 16:23 | ER Document Report ---
ED Medical Screen (RME) - General Chief Complaint: Hand Swelling Stated Complaint: SWOLLEN FINGER Time Seen by Provider: 06/19/20 16:16 Primary Care Provider: VESTA SHER MD [Primary Care Provider] - Follow up as needed Mode of Arrival: Ambulatory Information source: Patient Notes: 55-year-old female presented to ED for complaint of pain redness swelling to the right middle finger and hand. She states she was seen by a surgeon had surgery on her finger and hand about a month ago. She states her hand is swollen red and painful. She states her therapist told her that she needed to get it checked out. She states she went to the doctor he told her it was okay and the therapist said that she needed to go to the ER and get checked out. Is alert oriented respirations regular nonlabored speaking in full sentences. She would like blood work and x-ray to find out if there is anything going on with her hand. Temperature 98.0 pulse 80. Pulse ox 99% respirations 20 blood pressure 110/80. I have greeted and performed a rapid initial assessment of this patient. A comprehensive ED assessment and evaluation of the patient, analysis of test results and completion of medical decision making process will be conducted by an additional ED providers. TRAVEL OUTSIDE OF THE [place] IN LAST 30 DAYS: No - Related Data Allergies/Adverse Reactions: No Known Drug Allergies Allergy (Verified 05/15/20 15:49) shellfish derived Allergy (Verified 05/15/20 15:49) bee sting Allergy (Uncoded 05/15/20 15:49) Past Medical History - Past Medical History Cardiac Medical History: Reports: Hx Hypercholesterolemia, Hx Hypertension Pulmonary Medical History: Reports: Hx Sleep Apnea Neurological Medical History: Reports: Hx Seizures Renal/ Medical History: Denies: Hx Peritoneal Dialysis Psychiatric Medical History: Denies: Hx Depression Past Surgical History: Reports: Hx Hysterectomy, Hx Orthopedic Surgery - lt knee, Other - unknown Doctor's Discharge - Discharge Referrals: VESTA SHER MD [Primary Care Provider] - Follow up as needed
--- NOTE | 2020-06-19 16:56 | RADIOLOGY REPORT (SQ) ---
EXAM DESCRIPTION: HAND RIGHT 3 VIEWS IMAGES COMPLETED DATE/TIME: 06/19/2020 4:41 pm REASON FOR STUDY: Pain swelling to the right middle finger and hand COMPARISON: Right hand three views 05/15/2020 EXAM PARAMETERS: NUMBER OF VIEWS: Three views. TECHNIQUE: AP, lateral and oblique radiographic images acquired of the right hand. LIMITATIONS: None. FINDINGS: MINERALIZATION: Normal. BONES: There is periosteal new bone growth along the palmar aspect of the 3rd finger distal phalanx, proximal metaphysis. This is new compared to 05/15/2020, and is likely in response to a healed subacu te fracture JOINTS: No effusions. SOFT TISSUES: No soft tissue swelling. No foreign body. OTHER: No other significant finding. IMPRESSION: New bone growth along the palmar aspect, 3rd finger distal phalanx. This likely due to a healed subacute fracture. TECHNICAL DOCUMENTATION: JOB ID: [id number] 2010 [employer]- All Rights Reserved Reading location - IP/workstation name: [id number]
[2020-06-19 17:24] LABS: ABSOLUTE EOSINOPHILS # (AUTO) 0.1 10^3/uL (0.0-0.6); ABSOLUTE LYMPHOCYTES (AUTO) 1.9 10^3/uL (0.5-4.7); ABSOLUTE MONOCYTES (AUTO) 0.5 10^3/uL (0.1-1.4); ABSOLUTE NEUT (AUTO) 1.6 10^3/uL (1.7-8.2); BASOPHILS % (AUTO) 0.9 % (0-2); EOSINOPHILS % (AUTO) 2.9 % (0-6); HEMATOCRIT 42.7 % (36.0-47.0); HEMOGLOBIN 14.1 g/dL (12.0-15.5); LYMPHOCYTES % (AUTO) 44.9 % (13-45); MEAN CORPUSCULAR HGB CONC 33.1 g/dL (32.0-36.0); MEAN CORPUSCULAR VOLUME 82 fl (80-97); MONOCYTES % (AUTO) 12.3 % (3-13); PLATELET COUNT 203 10^3/uL (150-450); RED BLOOD COUNT 5.23 10^6/uL (3.72-5.28); RED CELL DISTRIBUTION WIDTH 15.8 % (11.5-14.0); TOTAL CELLS COUNTED % (AUTO) 100 %; WHITE BLOOD COUNT 4.1 10^3/uL (4.0-10.5)
[2020-06-19 17:44] LABS: ALBUMIN 4.1 g/dL (3.5-5.0); ALKALINE PHOSPHATASE 69 U/L (38-126); ANION GAP 8 (5-19); ASPARTATE AMINO TRANSFERASE 22 U/L (14-36); BILIRUBIN,DIRECT 0.1 mg/dL (0.0-0.4); BILIRUBIN,TOTAL 0.3 mg/dL (0.2-1.3); BLOOD UREA NITROGEN 11 mg/dL (7-20); CALCIUM 9.9 mg/dL (8.4-10.2); CARBON DIOXIDE 30 mmol/L (22-30); CHLORIDE 103 mmol/L (98-107); GLUCOSE 88 mg/dL (75-110); TOTAL PROTEIN 7.8 g/dL (6.3-8.2)
--- NOTE | 2020-06-19 23:38 | ER Document Report ---
ED Hand/Wrist Injury - General Chief Complaint: Hand Swelling Stated Complaint: SWOLLEN FINGER Time Seen by Provider: 06/19/20 16:16 Primary Care Provider: CLEMENT SMITH DO [ACTIVE STAFF] - 07/03/20 Mode of Arrival: Ambulatory Notes: Patient is a 55-year-old female who presents to the emergency department with a chief complaint of right third finger pain and swelling. On May 23, the pat ient had surgery for tenosynovitis. Patient states that she is unsure as to when her finger started hurting again. Denies any fever, body aches, or chills. Patient is right handed. TRAVEL OUTSIDE OF THE [place] IN LAST 30 DAYS: No - Related Data Allergies/Adverse Reactions: No Known Drug Allergies Allergy (Verified 05/15/20 15:49) shellfish derived Allergy (Verified 05/15/20 15:49) bee sting Allergy (Uncoded 05/15/20 15:49) Past Medical History - General Information source: Patient - Social History Smoking Status: Unknown if Ever Smoked Family History: Reviewed & Not Pertinent - Past Medical History Cardiac Medical History: Reports: Hx Hypercholesterolemia, Hx Hypertension Pulmonary Medical History: Reports: Hx Sleep Apnea Neurological Medical History: Reports: Hx Seizures Renal/ Medical History: Denies: Hx Peritoneal Dialysis Psychiatric Medical History: Denies: Hx Depression Past Surgical History: Reports: Hx Hysterectomy, Hx Orthopedic Surgery - lt knee, Other - unknown Review of Systems - Review of Systems Notes: REVIEW OF SYSTEMS: CONSTITUTIONAL : Denies recent illness. Denies recent unintentional weight loss. Denies fever, chills, or sweats. EENT: Denies eye, ear, throat, or mouth pain, discharge, or symptoms. Denies nasal or sinus congestion. CARDIOVASCULAR: Denies chest pain. RESPIRATORY: Denies shortness of breath, cough, congestion, difficulty breathing, or wheezing. GASTROINTESTINAL: Denies nausea, vomiting, and diarrhea. Denies abdominal pain. Denies constipation. GENITOURINARY: Denies difficulty urinating, burning, blood in urine, urgency or frequency. MUSCULOSKELETAL: Denies neck and back pain. See HPI. SKIN: Denies rash, itchiness, or lesions HEMATOLOGIC : Denies easy bruising or bleeding. LYMPHATIC: Denies swollen, painful, enlarged glands. NEUROLOGICAL: Denies no numbness or tingling denies weakness. Denies headache. Denies altered mental status. Denies alteration in speech. PSYCHIATRIC: Denies stress, anxiety, alteration in sleep patterns, or depression. All other systems reviewed and negative. Physical Exam - Vital signs Vitals: Temp Pulse Resp BP Pulse Ox 98.0 F 80 20 110/80 99 06/19/20 16:23 06/19/20 16:23 06/19/20 16:23 06/19/20 16:23 06/19/20 16:23 - Notes Notes: PHYSICAL EXAMINATION: GENERAL: Appears well, healthy, well-nourished, no acute distress. HEAD: Normocephalic, atraumatic. EYES: PERRL, conjunctiva normal, all extraocular movements intact, sclera nonicteric ENT: Moist mucous membranes. EXTREMITIES: Tenderness noted right third digit near MIP joint. NEUROLOGICAL: Moves all extremities upon command. Strength 5/5 in all extremities. Patient is able to flex and extend her 3rd digit, but ROM is slightly decreased. PSYCH: Normal mood, normal affect. SKIN: Warm, dry. No rash, lesions, ulcerations noted. Normal skin turgor. Course - Re-evaluation Re-evalutation: 06/19/20 23:41 I discussed labs and x-ray with Dr. Smith, the patient's surgeon. At this time, we will place the patient on Prednisone to help with her pain. She unfortunately can not go on NSAIDS because she is on blood thinners. There is no evidence of tenosynovitis. Dr. Smith would like the patient to continue physical therapy and follow up with him in a couple of weeks. Patient is in agreement with this plan. Follow-up precautions were given. Verbal discharge instructions were given to the patient. They verbalized understanding. They are stable for discharge. - Vital Signs Vital signs: Temp Pulse Resp BP Pulse Ox 98 F 81 20 114/82 99 06/20/20 00:37 06/20/20 00:37 06/20/20 00:37 06/20/20 00:37 06/20/20 00:37 - Laboratory Result Diagrams: 06/19/20 17:05 06/19/20 17:05 Laboratory results interpreted by me: 06/19/20 17:05 RDW 15.8 H Absolute Neuts (auto) 1.6 L Seg Neutrophils % 39.0 L Discharge - Discharge Clinical Impression: Finger pain, right Condition: Stable Disposition: HOME, SELF-CARE Additional Instructions: You were seen today in the emergency department for finger pain. Your x-rays show that you have some new bone growth, which can be common after surgery. You can also have pain after going to physical therapy. Take the steroids as prescribed. Follow-up with Dr. Smith in 2 weeks. Prescriptions: Prednisone 10 mg PO ASDIR PRN #21 tab.[id number] PRN Reason: Referrals: CLEMENT SMITH DO [ACTIVE STAFF] - 07/03/20
[2020-06-19] MEDS ORDERED: NAPROXEN 250 MG TABLET PO ONE (23:44)
[2020-06-19] MEDS ORDERED: PREDNISONE 20 MG TABLET PO ONE (23:47)
[2020-06-20 04:02] VITALS: BP 114/82
== END 2020-06-20 00:40 | disposition home or self-care (01) ==
LOC: ER 15:13
DX: M79.644 Pain in right finger(s) (principal); M79.89 Other specified soft tissue disorders; Z79.899 Other long term (current) drug therapy; Z91.013 Allergy to seafood; Z91.030 Bee allergy status
CPT/HCPCS: 99284; 36415; 87040; 85025; 80053; 82565; 73130; 71260; J7512

== ENCOUNTER → 2020-06-19 | Outpatient (CLI) | payer BC, MEDICAID ==
--- NOTE | 2020-06-20 13:22 | RADIOLOGY REPORT (SQ) ---
EXAM DESCRIPTION: CT CHEST WITH IMAGES COMPLETED DATE/TIME: 06/19/2020 10:30 am REASON FOR STUDY: R91.1 SOLITARY PULMONARY NODULE R91.1 SOLITARY PULMONARY NODULE COMPARISON: 04/24/2020 TECHNIQUE: CT scan of the chest performed using helical scanning technique with dynamic intravenous contrast injection. Images reviewed with lung, soft tissue and bone windows. Reconstructed coronal and sagittal MPR and MIP images reviewed. All images stored on PACS. All CT scanners at this facility use dose modulation, iterative reconstruction, and/or weight based d osing when appropriate to reduce radiation dose to as low as reasonably achievable (ALARA). [facility]: Dose Right [facility]: CareDose [facility]: Dose Right [facility]: Teradose 4D [facility]: Kanmu CONTRAST TYPE AND DOSE: 80 mL Omnipaque 350- low osmolar. RENAL FUNCTION: Creatinine 0.8 RADIATION DOSE: . LIMITATIONS: None. FINDINGS: LUNGS AND PLEURA: No opacities, nodules, masses. No pneumothorax. No effusions. HILAR AND MEDIASTINAL STRUCTURES: Masslike opacification seen in the upper mediastinum is no longer p resent. No significant mediastinal adenopathy. No hilar adenopathy. HEART AND VASCULAR STRUCTURES: No aneurysm or dissection. Normal 3 vessel aortic arch. HARDWARE: None in the chest. UPPER ABDOMEN: No significant findings. Limited exam. THYROID AND OTHER SOFT TISSUES: Normal thyroid. There are several small nonspecific axillary lymph n odes bilaterally. The largest is on the right and measures 10 mm. BONES: No significant finding. OTHER: No other significant finding. IMPRESSION: Masslike opacification previously seen in the upper mediastinum and subclavian region is no longer evident. There is collateral venous return from the left upper extremity. TECHNICAL DOCUMENTATION: JOB ID: [id number] Quality ID # [id number]: Final reports with documentation of one or more dose reduction techniques (e.g., Au tomated exposure control, adjustment of the mA and/or kV according to patient size, use of iterative reconstruction technique) 2010 [employer]- All Rights Reserved Reading location - IP/workstation name: [email or web address]
== END ==
LOC: RAD 09:55
PROVIDERS: ATTEND Internal Medicine Hematology & Oncology
DX: R91.1 Solitary pulmonary nodule (principal)
CPT/HCPCS: 71260; 82565

== ENCOUNTER 2020-07-10 08:51 | Emergency (ER) | payer BC, MEDICAID ==
[2020-07-10] MEDS ORDERED: MECLIZINE HCL 25 MG TABLET PO ONE (10:10)
[2020-07-10] MEDS ORDERED: ONDANSETRON 4 MG TAB.RAPDIS PO ONE (10:10)
--- NOTE | 2020-07-10 10:12 | ER Document Report ---
ED Medical Screen (RME) - General Chief Complaint: Dizziness Stated Complaint: DIZZINESS Time Seen by Provider: 07/10/20 10:06 Primary Care Provider: VESTA SHER MD [Primary Care Provider] - Follow up as needed Mode of Arrival: Ambulatory Information source: Patient Notes: Patient presents complaining of dizziness for the past 2 days. Patient describes symptoms as a rotational movement. Patient reports some frontal headache pain as well. Patient states symptoms started 2 days ago when she started taking Keflex for an groin abscess. Patient denies any chest discomfort or shortness of breath. Patient without any congestion symptoms. I have greeted and performed a rapid initial assessment of this patient. A comprehensive ED assessment and evaluation of the patient, analysis of test results and completion of the medical decision making process will be conducted by additional ED providers. TRAVEL OUTSIDE OF THE [place] IN LAST 30 DAYS: No - Related Data Allergies/Adverse Reactions: No Known Drug Allergies Allergy (Verified 07/10/20 09:56) shellfish derived Allergy (Verified 07/10/20 09:56) bee sting Allergy (Uncoded 07/10/20 09:56) Home Medications: asa, pravastatin, hctz, levocetirizine, levetiracetan Past Medical History - Social History Chew tobacco use (# tins/day): No Frequency of alcohol use: None Drug Abuse: None - Past Medical History Cardiac Medical History: Reports: Hx Hypercholesterolemia, Hx Hypertension Pulmonary Medical History: Reports: Hx Sleep Apnea Neurological Medical History: Reports: Hx Seizures Renal/ Medical History: Denies: Hx Peritoneal Dialysis Psychiatric Medical History: Denies: Hx Depression Past Surgical History: Reports: Hx Hysterectomy, Hx Orthopedic Surgery - lt knee, Other - unknown Physical Exam - Vital signs Vitals: Temp Pulse Resp BP Pulse Ox 98.2 F 73 17 148/107 H 100 07/10/20 09:02 07/10/20 09:02 07/10/20 09:02 07/10/20 09:02 07/10/20 09:02 - Cardiovascular Rhythm: Regular Heart sounds: S1 appreciated, S2 appreciated - Neurological Neuro grossly intact: Yes Jose Coma Scale Eye Opening: Spontaneous Liberty Coma Scale Verbal: Oriented Liberty Coma Scale Motor: Obeys Commands Jose Coma Scale Total: 15 Course - Vital Signs Vital signs: Temp Pulse Resp BP Pulse Ox 98.2 F 73 17 138/84 H 100 07/10/20 09:02 07/10/20 09:02 07/10/20 09:02 07/10/20 10:05 07/10/20 09:02 Doctor's Discharge - Discharge Referrals: VESTA SHER MD [Primary Care Provider] - Follow up as needed
[2020-07-10 11:02] LABS: ABSOLUTE EOSINOPHILS # (AUTO) 0.2 10^3/uL (0.0-0.6); ABSOLUTE LYMPHOCYTES (AUTO) 1.2 10^3/uL (0.5-4.7); ABSOLUTE MONOCYTES (AUTO) 0.4 10^3/uL (0.1-1.4); ABSOLUTE NEUT (AUTO) 1.4 10^3/uL (1.7-8.2); BASOPHILS % (AUTO) 0.8 % (0-2); EOSINOPHILS % (AUTO) 4.9 % (0-6); HEMATOCRIT 43.5 % (36.0-47.0); HEMOGLOBIN 14.1 g/dL (12.0-15.5); LYMPHOCYTES % (AUTO) 38.1 % (13-45); MEAN CORPUSCULAR HEMOGLOBIN 26.4 pg (27.0-33.4); MEAN CORPUSCULAR HGB CONC 32.5 g/dL (32.0-36.0); MEAN CORPUSCULAR VOLUME 81 fl (80-97); MONOCYTES % (AUTO) 12.5 % (3-13); PLATELET COUNT 170 10^3/uL (150-450); RED BLOOD COUNT 5.35 10^6/uL (3.72-5.28); RED CELL DISTRIBUTION WIDTH 15.8 % (11.5-14.0); SEGMENTED NEUTROPHILS % (AUTO) 43.7 % (42-78); TOTAL CELLS COUNTED % (AUTO) 100 %; WHITE BLOOD COUNT 3.3 10^3/uL (4.0-10.5)
[2020-07-10 11:18] LABS: ALBUMIN 3.9 g/dL (3.5-5.0); ALKALINE PHOSPHATASE 68 U/L (38-126); ANION GAP 8 (5-19); ASPARTATE AMINO TRANSFERASE 21 U/L (14-36); BILIRUBIN,DIRECT 0.1 mg/dL (0.0-0.4); BILIRUBIN,TOTAL 0.5 mg/dL (0.2-1.3); BLOOD UREA NITROGEN 9 mg/dL (7-20); CALCIUM 9.9 mg/dL (8.4-10.2); CARBON DIOXIDE 31 mmol/L (22-30); CHLORIDE 103 mmol/L (98-107); GLUCOSE 92 mg/dL (75-110); POTASSIUM 3.8 mmol/L (3.6-5.0); TOTAL PROTEIN 7.4 g/dL (6.3-8.2)
--- NOTE | 2020-07-10 11:50 | ER Document Report ---
ED General - General Chief Complaint: Dizziness Stated Complaint: DIZZINESS Time Seen by Provider: 07/10/20 10:06 Primary Care Provider: VESTA SHER MD [Primary Care Provider] - Follow up as needed Mode of Arrival: Ambulatory TRAVEL OUTSIDE OF THE [place] IN LAST 30 DAYS: No - HPI Notes: Chief complaint: Dizziness History of present illness: 55-year-old female follow-up with Dr. Calix with past history of CVA comes in now with 2 to 3-day history of dizziness which she describes as intermittent spinning in the room. This is aggravated by changes in position. She also has some associated generalized dull headache. She denies trauma. She is on chronic anticoagulation with Xarelto. - Related Data Allergies/Adverse Reactions: No Known Drug Allergies Allergy (Verified 07/10/20 09:56) shellfish derived Allergy (Verified 07/10/20 09:56) bee sting Allergy (Uncoded 07/10/20 09:56) Home Medications: asa, pravastatin, hctz, levocetirizine, levetiracetan Past Medical History - General Information source: Patient, [facility] Records - Social History Smoking Status: Current Every Day Smoker Chew tobacco use (# tins/day): No Frequency of alcohol use: None Drug Abuse: None Family History: Reviewed & Not Pertinent Patient has homicidal ideation: No - Past Medical History Cardiac Medical History: Reports: Hx Hypercholesterolemia, Hx Hypertension Pulmonary Medical History: Reports: Hx Sleep Apnea Neurological Medical History: Reports: Hx Cerebrovascular Accident, Hx Seizures Endocrine Medical History: Denies: Hx Diabetes Mellitus Type 1, Hx Diabetes Mellitus Type 2 Renal/ Medical History: Denies: Hx Peritoneal Dialysis Psychiatric Medical History: Denies: Hx Depression Past Surgical History: Reports: Hx Hysterectomy, Hx Orthopedic Surgery - lt knee, Other - unknown Review of Systems - Review of Systems Notes: Constitutional: Negative for fever. HENT: Negative for sore throat. Eyes: Negative for visual changes. Cardiovascular: Negative for chest pain. Respiratory: Negative for shortness of breath. Gastrointestinal: Negative for abdominal pain, vomiting or diarrhea. Genitourinary: Negative for dysuria. Musculoskeletal: Negative for back pain. Skin: Negative for rash. Neurological: As per HPI. 10 point ROS negative except as marked above and in HPI. Physical Exam - Vital signs Vitals: Temp Pulse Resp BP Pulse Ox 98.2 F 73 17 148/107 H 100 07/10/20 09:02 07/10/20 09:02 07/10/20 09:02 07/10/20 09:02 07/10/20 09:02 - Notes Notes: GENERAL: White female appearing in no acute distress. SKIN: Good turgor no rashes. HEAD: Normocephalic atraumatic. EYES: PERRLA. EOMI. Conjunctivae and sclerae clear. EARS: CANALS AND TMS CLEAR. NOSE: CLEAR. MOUTH: Moist mucosa. Good dentition. No stridor or edema. No drooling. NECK: Supple. No masses or thyromegaly. No adenopathy. Carotids 2+ without bruits. No JVD. BACK: Symmetrical without tenderness. CHEST: Respirations unlabored. Breath sounds clear and symmetrical. HEART: Regular rhythm. No murmur gallop or rub. ABDOMEN: Soft nontender without masses, organomegaly or rebound. Bowel sounds normally active. No bruits. GENITALIA: Deferred. EXTREMITIES: No edema. No calf tenderness. Cap refill less than 1.5 seconds. Dorsalis pedis and posterior tibial pulses 3+ and symmetrical. NEUROLOGICAL: GCS 15. Alert and oriented x3. Normal gait. Fluent speech. Cranial nerves II through XII intact. Sensorimotor and cerebellar normal. No rmal tone. PSYCHIATRIC: Appropriate affect. Course - Re-evaluation Re-evalutation: 07/10/20 13:45 Patient is mildly leukopenic here. She is afebrile. Head CT shows changes of old CVA with no acute findings. She has no new focal findings on her neurologic exam today. 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 She reported minimal improvement of symptoms with oral Antivert. I will try her on some low-dose diazepam and have her follow-up with her primary care physician on outpatient basis. Findings, clinical impression and plan of treatment have been discussed with patient/family. Understanding of current findings and recommendations has been acknowledged by them and there is agreement regarding disposition and follow-up. - Vital Signs Vital signs: Temp Pulse Resp BP Pulse Ox 98.2 F 70 17 111/77 100 07/10/20 09:02 07/10/20 10:10 07/10/20 09:02 07/10/20 10:10 07/10/20 09:02 - Laboratory Result Diagrams: 07/10/20 10:40 07/10/20 10:40 Laboratory results interpreted by me: 07/10/20 07/10/20 10:40 10:40 WBC 3.3 L RBC 5.35 H [facility] 26.4 L RDW 15.8 H Absolute Neuts (auto) 1.4 L Carbon Dioxide 31 H - EKG Interpretation by Me Additional EKG results interpreted by me: 07/10/20 11:51 Twelve-lead EKG reviewed by me contemporaneously: 1046 hrs. Indication for study: Dizziness Rhythm: Sinus bradycardia Rate: 58 Intervals: Normal QRS axis: -[address]/T wave changes: Comparison with prior tracing: Unchanged compared with prior study 04/24/2020 Interpretation: Sinus bradycardia Discharge - Discharge Clinical Impression: Vertigo, Old CVA Condition: Stable Disposition: HOME, SELF-CARE Instructions: Vertigo ([facility]) Prescriptions: Diazepam [Valium 2 mg Tablet] 2 mg PO Q6HP PRN #15 tablet PRN Reason: Dizziness Diazepam [Valium 2 mg Tablet] 2 mg PO Q6HP PRN #15 tablet PRN Reason: Dizziness Referrals: VESTA SHER MD [Primary Care Provider] - Follow up as needed
--- NOTE | 2020-07-10 12:33 | EKG REPORT ---
SEVERITY:- BORDERLINE ECG - SINUS RHYTHM BORDERLINE LEFT AXIS DEVIATION BORDERLINE T ABNORMALITIES, ANTERIOR LEADS : Confirmed by: Enoch Marques MD 10-Jul-2020 12:32:33
--- NOTE | 2020-07-10 12:49 | RADIOLOGY REPORT (SQ) ---
EXAM DESCRIPTION: CT HEAD WITHOUT IMAGES COMPLETED DATE/TIME: 07/10/2020 12:39 pm REASON FOR STUDY: vertigo, GALLOWAY, old CVA COMPARISON: 04/25/2020 TECHNIQUE: Axial images acquired through the brain without intravenous contrast. Images reviewed wi th bone, brain and subdural windows. Additional sagittal and coronal reconstructions were generated. Images stored on PACS. All CT scanners at this facility use dose modulation, iterative reconstruction, and/or weight based d osing when appropriate to reduce radiation dose to as low as reasonably achievable (ALARA). [facility]: Dose Right [facility]: CareDose [facility]: Dose Right [facility]: Teradose 4D [facility]: Birthday Slam RADIATION DOSE: CT Rad equipment meets quality standard of care and radiation dose reduction techniq ues were employed. CTDIvol: 53.2 mGy. DLP: 1124 mGy-cm.mGy. LIMITATIONS: None. FINDINGS: VENTRICLES: Mild ex vacuo dilation of the left lateral ventricle. Otherwise, unremarkable ventricular system. CEREBRUM: No intracranial hemorrhage. Chronic left frontal and parietal infarct with encephalomalaci a and hypoattenuation. Scattered additional areas of subcortical periventricular hypoattenuation, li shyanne sequelae of microangiopathic disease. No evidence of new acute large vascular territory infarct . No mass or mass effect. CEREBELLUM: No masses. No hemorrhage. No alteration of density. No evidence for acute infarction. EXTRAAXIAL SPACES: No fluid collections. No masses. ORBITS AND GLOBE: No intra- or extraconal masses. Normal contour of globe without masses. CALVARIUM: No fracture. PARANASAL SINUSES: No fluid or mucosal thickening. SOFT TISSUES: No mass or hematoma. OTHER: No other significant finding. IMPRESSION: No evidence of acute intracranial process. Sequelae from prior left MCA territory infarct. EVIDENCE OF ACUTE STROKE: NO. TECHNICAL DOCUMENTATION: JOB ID: [id number] Quality ID # [id number]: Final reports with documentation of one or more dose reduction techniques (e.g., Au tomated exposure control, adjustment of the mA and/or kV according to patient size, use of iterative reconstruction technique) 2010 [employer]- All Rights Reserved Reading location - IP/workstation name: [email or web address]
[2020-07-10 14:02] VITALS: BP 107/69
== END 2020-07-10 14:02 | disposition home or self-care (01) ==
LOC: ER 08:51
DX: R42 Dizziness and giddiness (principal); R51.9 Headache, unspecified; R00.1 Bradycardia, unspecified; L02.214 Cutaneous abscess of groin; I10 Essential (primary) hypertension; E78.00 Pure hypercholesterolemia, unspecified; R56.9 Unspecified convulsions; Z86.73 Personal history of transient ischemic attack (TIA), and cerebral infarction without residual deficits; Z79.01 Long term (current) use of anticoagulants; Z79.82 Long term (current) use of aspirin; Z79.899 Other long term (current) drug therapy; Z91.013 Allergy to seafood; Z91.030 Bee allergy status
CPT/HCPCS: 93005; 99285; 36415; 83735; 85025; 80053; 70450; 93010; S0119

== ENCOUNTER 2020-08-12 15:22 | Emergency (ER) | payer BC, MEDICAID ==
[2020-08-12] MEDS ORDERED: ONDANSETRON HCL INJ/PF 4 MG/2 ML SDV IV ONE (17:09)
--- NOTE | 2020-08-12 17:09 | ER Document Report ---
ED Medical Screen (RME) - General Chief Complaint: Nausea/Vomiting Stated Complaint: NAUSEA/VOMITING Time Seen by Provider: 08/12/20 17:04 Primary Care Provider: VESTA SHER MD [Primary Care Provider] - Follow up as needed Mode of Arrival: Ambulatory Information source: Patient Notes: HPI; 55-year-old patient with a past medical history significant for hypertens ion, hyperlipidemia, seizure disorder, CVA presents to the emergency room stating "I just do not feel well" complains of a cough, headache with nausea subjective fever and chills symptoms started earlier today. No medications for her symptoms. Denies any COVID-19 exposure. Denies any chest pain or shortness of breath PE: Alert and oriented x3. Lungs: Clear to auscultation without rales, rhonchi, wheezes. Heart: Regular rate rhythm without murmurs, rubs, gallops. I have greeted and performed a rapid initial assessment of this patient. A comprehensive ED assessment and evaluation of the patient, analysis of test results and completion of the medical decision making process will be conducted by additional ED providers. I have specifically instructed the patient or family members with the patient to immediately return to any nursing staff should anything change in the patient's condition or with their chief complaint. TRAVEL OUTSIDE OF THE [place] IN LAST 30 DAYS: No - Related Data Allergies/Adverse Reactions: No Known Drug Allergies Allergy (Verified 07/10/20 09:56) shellfish derived Allergy (Verified 07/10/20 09:56) bee sting Allergy (Uncoded 07/10/20 09:56) Past Medical History - Past Medical History Cardiac Medical History: Reports: Hx Hypercholesterolemia, Hx Hypertension Pulmonary Medical History: Reports: Hx Sleep Apnea Neurological Medical History: Reports: Hx Cerebrovascular Accident, Hx Seizures Endocrine Medical History: Denies: Hx Diabetes Mellitus Type 1, Hx Diabetes Mellitus Type 2 Renal/ Medical History: Denies: Hx Peritoneal Dialysis Psychiatric Medical History: Denies: Hx Depression Past Surgical History: Reports: Hx Hysterectomy, Hx Orthopedic Surgery - lt knee, Other - unknown Physical Exam - Vital signs Vitals: Temp Pulse Resp BP Pulse Ox 98.3 F 65 20 136/89 H 99 08/12/20 15:52 08/12/20 15:52 08/12/20 15:52 08/12/20 15:52 08/12/20 15:52 Course - Vital Signs Vital signs: Temp Pulse Resp BP Pulse Ox 98.3 F 65 20 136/89 H 99 08/12/20 15:52 08/12/20 15:52 08/12/20 15:52 08/12/20 15:52 08/12/20 15:52 Doctor's Discharge - Discharge Referrals: VESTA SHER MD [Primary Care Provider] - Follow up as needed
[2020-08-12] MEDS ORDERED: ACETAMINOPHEN 325 MG TABLET PO ONE (17:12)
--- NOTE | 2020-08-12 18:37 | RADIOLOGY REPORT (SQ) ---
EXAM DESCRIPTION: CHEST SINGLE VIEW IMAGES COMPLETED DATE/TIME: 08/12/2020 5:55 pm REASON FOR STUDY: cough COMPARISON: 04/24/2020 EXAM PARAMETERS: NUMBER OF VIEWS: One view. TECHNIQUE: Single frontal radiographic view of the chest acquired. RADIATION DOSE: NA LIMITATIONS: None. FINDINGS: LUNGS AND PLEURA: No opacities, masses or pneumothorax. No pleural effusion. MEDIASTINUM AND HILAR STRUCTURES: No masses. Contour normal. HEART AND VASCULAR STRUCTURES: Heart normal in size. Normal vasculature. BONES: No acute findings. HARDWARE: None in the chest. OTHER: No other significant finding. IMPRESSION: NO ACUTE RADIOGRAPHIC FINDING IN THE CHEST. TECHNICAL DOCUMENTATION: JOB ID: [id number] 2010 [employer]- All Rights Reserved Reading location - IP/workstation name: [email or web address]
[2020-08-12 20:18] LABS: ABSOLUTE EOSINOPHILS # (AUTO) 0.1 10^3/uL (0.0-0.6); ABSOLUTE LYMPHOCYTES (AUTO) 1.7 10^3/uL (0.5-4.7); ABSOLUTE MONOCYTES (AUTO) 0.5 10^3/uL (0.1-1.4); ABSOLUTE NEUT (AUTO) 1.4 10^3/uL (1.7-8.2); BASOPHILS % (AUTO) 0.5 % (0-2); EOSINOPHILS % (AUTO) 3.2 % (0-6); HEMATOCRIT 41.5 % (36.0-47.0); HEMOGLOBIN 13.9 g/dL (12.0-15.5); LYMPHOCYTES % (AUTO) 46.6 % (13-45); MEAN CORPUSCULAR HEMOGLOBIN 27.1 pg (27.0-33.4); MEAN CORPUSCULAR HGB CONC 33.6 g/dL (32.0-36.0); MEAN CORPUSCULAR VOLUME 81 fl (80-97); MONOCYTES % (AUTO) 12.4 % (3-13); PLATELET COUNT 192 10^3/uL (150-450); RED BLOOD COUNT 5.15 10^6/uL (3.72-5.28); SEGMENTED NEUTROPHILS % (AUTO) 37.3 % (42-78); TOTAL CELLS COUNTED % (AUTO) 100 %; WHITE BLOOD COUNT 3.7 10^3/uL (4.0-10.5)
[2020-08-12 20:22] LABS: APPEARANCE,URINE SLIGHTLY-CLOUDY; BILIRUBIN,URINE NEGATIVE (NEGATIVE); COLOR,URINE YELLOW; GLUCOSE, URINE NEGATIVE (NEGATIVE); KETONES,URINE NEGATIVE (NEGATIVE); LEUKOCYTE ESTERASE,URINE NEGATIVE (NEGATIVE); NITRITE,URINE NEGATIVE (NEGATIVE); PROTEIN,URINE NEGATIVE (NEGATIVE); URINE SPECIFIC GRAVITY 1.024
[2020-08-12 20:36] LABS: ALKALINE PHOSPHATASE 68 U/L (38-126); ANION GAP 5 (5-19); ASPARTATE AMINO TRANSFERASE 33 U/L (14-36); BILIRUBIN,DIRECT 0.1 mg/dL (0.0-0.4); BILIRUBIN,TOTAL 0.5 mg/dL (0.2-1.3); BLOOD UREA NITROGEN 8 mg/dL (7-20); CALCIUM 9.7 mg/dL (8.4-10.2); CARBON DIOXIDE 35 mmol/L (22-30); CHLORIDE 100 mmol/L (98-107); GLUCOSE 93 mg/dL (75-110); POTASSIUM 3.8 mmol/L (3.6-5.0); TOTAL PROTEIN 7.7 g/dL (6.3-8.2)
--- NOTE | 2020-08-12 23:48 | ER Document Report ---
ED General - General Chief Complaint: Flu Symptoms Stated Complaint: NAUSEA/VOMITING Time Seen by Provider: 08/12/20 17:04 Primary Care Provider: VESTA SHER MD [Primary Care Provider] - Follow up as needed Mode of Arrival: Ambulatory TRAVEL OUTSIDE OF THE [place] IN LAST 30 DAYS: No - HPI Notes: Patient is a 55-year-old female with a past medical history of DVT and CVA who presents with feeling ill. Patient states she has felt fatigued and ill for about 3 days. She mentions that she has been sleeping more. She also has headaches which is not unusual for her. She denies any chest pain or shortness of breath. She does mention a dry cough. No nausea or vomiting. No diarrhea. No abdominal pain. She has not lost taste or smell. She denies any Covid contacts. Patient is on a blood thinner. She is a daily smoker. - Related Data Allergies/Adverse Reactions: No Known Drug Allergies Allergy (Verified 08/12/20 21:16) shellfish derived Allergy (Verified 08/12/20 21:16) bee sting Allergy (Uncoded 07/10/20 09:56) Home Medications: ASA. HCTZ. KEPPRA. DITROVAN. PRAVASTATIN. XERLTO Past Medical History - General Information source: Patient - Social History Smoking Status: Current Every Day Smoker Frequency of alcohol use: None Drug Abuse: None Family History: Reviewed & Not Pertinent - Past Medical History Cardiac Medical History: Reports: Hx Hypercholesterolemia, Hx Hypertension Pulmonary Medical History: Reports: Hx Sleep Apnea Neurological Medical History: Reports: Hx Cerebrovascular Accident, Hx Seizures Endocrine Medical History: Denies: Hx Diabetes Mellitus Type 1, Hx Diabetes Mellitus Type 2 Renal/ Medical History: Denies: Hx Peritoneal Dialysis Psychiatric Medical History: Denies: Hx Depression Past Surgical History: Reports: Hx Hysterectomy, Hx Orthopedic Surgery - lt knee, Other - unknown Review of Systems - Review of Systems Notes: CONSTITUTIONAL: No fever or weight loss. Positive for fatigue. SKIN: No rash. HENT: No congestion, ear pain, or sore throat. EYES: No recent vision problems or eye pain. CARDIOVASCULAR: No chest pain or edema. RESPIRATORY: Positive for cough. No shortness of breath, congestion, or wheezing. GASTROINTESTINAL: No abdominal pain, nausea, vomiting, bloody stools or diarrhea. GENITOURINARY: No dysuria. MUSCULOSKELETAL: No joint pain or swelling. NEUROLOGIC: No seizures, focal weakness or sensory changes. Positive for headache. HEMATOLOGIC: No unusual bruising or bleeding. PSYCHIATRIC: No depression or anxiety. Physical Exam - Vital signs Vitals: Temp Pulse Resp BP Pulse Ox 98.3 F 65 20 136/89 H 99 08/12/20 15:52 08/12/20 15:52 08/12/20 15:52 08/12/20 15:52 08/12/20 15:52 - General General appearance: Appears well In distress: None Notes: VITAL SIGNS: Within normal limits. GENERAL: No acute distress, non-toxic appearance. HEAD: Normal with no signs of head trauma. EYES: EOMI, conjunctiva normal, no discharge. EARS: Hearing grossly intact. NECK: Normal range of motion, no tenderness, supple, no lymphadenopathy, No adenopathy, no JVD. CHEST: Clear breath sounds bilaterally. No wheezes, rales, or rhonchi. CARDIAC: Regular rate and rhythm. VASCULAR: No Edema. ABDOMEN: Normal and soft with no tenderness, no masses or pulsatile masses. GENITOURINARY: Normal, No tenderness MUSCULOSKELETAL: Good range of motion of all major joints. Extremities without clubbing, cyanosis or edema. NEUROLOGICAL: Alert and oriented x 3. No focal sensory or strength deficits. Speech normal. Follows commands appropriately. PSYCHIATRIC: Normal Affect, judgement and mood. SKIN: Normal appearance with no rashes or lesions. Course - Re-evaluation Re-evalutation: 08/13/20 06:05 Patient states she feels much better. She is sleeping on reassessment. I discussed all results with the patient. She was told to self isolate until she is called with a negative result. Likely, this is a viral illness. Patient is very agreeable for the plan for follow-up. - Vital Signs Vital signs: Temp Pulse Resp BP Pulse Ox 98.4 F 84 16 138/74 H 98 08/13/20 03:03 08/13/20 03:03 08/13/20 03:03 08/13/20 03:03 08/13/20 03:03 - Laboratory Results Result Diagrams: 08/12/20 19:59 08/12/20 19:59 Laboratory Results Interpreted: 08/12/20 08/12/20 08/12/20 19:59 19:59 19:59 WBC 3.7 L RDW 15.0 H Lymph % (Auto) 46.6 H Absolute Neuts (auto) 1.4 L Seg Neutrophils % 37.3 L Carbon Dioxide 35 H Urine Urobilinogen 2.0 H Critical Laboratory Results Reviewed: No Critical Results - Radiology Results Critical Radiology Results Reviewed: No Critical Results - EKG Interpretation by Me EKG shows normal: Sinus rhythm Rate: Normal Rhythm: NSR When compared to previous EKG there are: No significant change Additional EKG results interpreted by me: 08/12/20 23:47 Sinus rhythm at a rate of 61. QTc 452. No acute ST changes. Previous EKG is similar. 08/12/20 23:47 Discharge - Discharge Clinical Impression: Cough Headache Qualifiers: Headache type: unspecified Headache chronicity pattern: unspecified pattern Intractability: not intractable Qualified Code(s): R51.9 - Headache, unspecified Fatigue Qualifiers: Fatigue type: other Qualified Code(s): R53.83 - Other fatigue Condition: Stable Disposition: HOME, SELF-CARE Instructions: COVID-19 Guidance for Persons Under Investigation Additional Instructions: Your work-up today is reassuring. Please make sure you are getting rest and drinking fluids. Please follow-up with your family doctor. You have been tested for COVID-19. You must self isolate until you are called with a negative result. Please return to the ER for any worsening symptoms. Referrals: VESTA SHER MD [Primary Care Provider] - Follow up as needed
[2020-08-13] MEDS ORDERED: ONDANSETRON 4 MG TAB.RAPDIS PO ONE (01:01)
[2020-08-13] MEDS ORDERED: ACETAMINOPHEN 325 MG TABLET ONE (01:04)
[2020-08-13 02:00] LABS: A TYPE INFLUENZA AG NEGATIVE (NEGATIVE); B INFLUENZA AG NEGATIVE (NEGATIVE)
--- NOTE | 2020-08-13 02:42 | RADIOLOGY REPORT (SQ) ---
CT head without contrast on 08/13/2020 1:39 AM CLINICAL INDICATION: Headache TECHNIQUE: Multiple axial images are obtained throughout the head without the administration of contrast. This exam was performed according to our departmental dose-optimization program, which includes automated exposure control, adjustment of the mA and/or kV according to patient size and/or use of iterative reconstruction technique. Total DLP is 1123.58 mGy*cm. COMPARISON: 07/10/2020 FINDINGS: There is stable encephalomalacia in the left frontal and parietal lobes consistent with old areas of infarct. There is no hydrocephalus. There is no CT evidence of acute infarct. There is no hemorrhage. There are no abnormal extra-axial fluid collections. There is no mass, mass effect or midline shift. No bony abnormality is noted. IMPRESSION: Stable examination with no acute intracranial abnormality.
[2020-08-13 03:04] VITALS: BP 138/74
--- NOTE | 2020-08-13 08:57 | EKG REPORT ---
SEVERITY:- ABNORMAL ECG - SINUS RHYTHM PROBABLE LEFT ATRIAL ABNORMALITY BORDERLINE LEFT AXIS DEVIATION NONSPECIFIC T ABNORMALITIES, INFERIOR LEADS : Confirmed by: Josr Rey MD 13-Aug-2020 08:56:29
== END 2020-08-13 03:10 | disposition home or self-care (01) ==
LOC: ER 15:22
DX: R05 Cough (principal); R53.83 Other fatigue; R51.9 Headache, unspecified; E78.00 Pure hypercholesterolemia, unspecified; I10 Essential (primary) hypertension; Z79.82 Long term (current) use of aspirin; Z79.01 Long term (current) use of anticoagulants; Z86.73 Personal history of transient ischemic attack (TIA), and cerebral infarction without residual deficits; Z79.899 Other long term (current) drug therapy; Z91.013 Allergy to seafood; Z91.030 Bee allergy status; Z20.828 Contact with and (suspected) exposure to other viral communicable diseases
CPT/HCPCS: 93005; 99285; 36415; 85025; 80053; 81001; 84484; 87804; 71045; 70450; 93010; U0003; S0119; C9803; 87635